=== PATIENT | female | born 1995 | race Caucasian/White ===

== ENCOUNTER → 2019-12-25 11:33 | Outpatient (BNVA) | payer OTHER, SELFPAY | PROVIDERS: PCP Internal Medicine; Visit Provider Internal Medicine Gastroenterology | DX: Z76.89 Persons encountering health services in other specified circumstances (principal) ==

== ENCOUNTER 2019-12-29 14:07 | Emergency (ER) | payer OTHER, MEDICAID, SELFPAY ==
[2019-12-29 14:16] VITALS: BP 126/74; PULSE 90; RESP 16; TEMP 37.4; O2SAT 100; BMI 25.0
--- NOTE | 2019-12-29 15:13 | PC.NURSE ---
patient a&ox3, eyes perrla, pt c/o continued blurry vision in rt eye only, c/o 3/10 headache, denies eye or head trauma, pt also c/o 3/10 oribal pain as well.
--- NOTE | 2019-12-29 15:20 | CT_ITS ---
EXAMINATION: CT HEAD WITHOUT CONTRAST CLINICAL INFORMATION: Episodes of vision loss in the right eye. COMPARISON: CT head from 06/14/2019. TECHNIQUE: Contiguous axial imaging was performed from the skull base to vertex without intravenous administration of contrast. This CT examination was performed using dose optimization techniques as appropriate, variously including the following: *Automated exposure control. *Adjustment of mA and/or kV according to patient size (this includes techniques or standardized protocols for targeted exams where dose is matched to indication/reason for exam; i.e. extremities or head). *Use of iterative reconstruction technique. DLP: 722 mGy-cm FINDINGS: There is no evidence of acute intracranial hemorrhage or edematous territorial infarction. There is no abnormal attenuation within the brain parenchyma. Camacho-white matter differentiation is preserved. The ventricles are normal in size and configuration. No evidence for obstructive hydrocephalus. The cerebellar tonsils are mildly low-lying, positioned 0.3 cm below the foramen magnum. The CSF space of the foramen magnum remains widely patent. No abnormal mass effect or midline shift. The suprasellar cistern remains patent. Normal appearance of the pituitary gland. No extra-axial fluid collections. No acute soft tissue or osseous abnormalities. The mastoid air cells and paranasal sinuses are clear. No demonstrated abnormalities of the orbits on the limited evaluation. CT/CT head/brain wo con IMPRESSION: 1. No evidence of acute intracranial hemorrhage or edematous territorial infarction. 2. Mild cerebellar tonsillar ectopia. Otherwise, no demonstrated abnormal mass effect.
--- NOTE | 2019-12-29 15:20 | ECG_ITS ---
Test Reason : HEADACHES Blood Pressure : / mmHG Vent. Rate : 067 BPM Atrial Rate : 067 BPM P-R Int : 160 ms QRS Dur : 102 ms QT Int : 430 ms P-R-T Axes : 068 061 039 degrees QTc Int : 454 ms Sinus rhythm with sinus arrhythmia with occasional Premature ventricular complexes Otherwise normal ECG When compared with ECG of 07-OCT-2019 22:53, Premature ventricular complexes are now Present Referred By: Jinny Sutton Electronically Signed By:ESTHELA CARCAMO MD
[2019-12-29 15:46] VITALS: BP 105/60; PULSE 66; RESP 18; TEMP 37; O2SAT 100
--- NOTE | 2019-12-29 15:54 | ED.GENADULT ---
HPI - General Adult General Chief complaint: Eye Problems Stated complaint: vision problem Time Seen by Provider: 12/29/19 15:05 Source: patient Mode of arrival: ambulatory Limitations: no limitations History of Present Illness HPI narrative: patient comes to emergency room complaining of multiple episodes complete visual loss this morning. Patient states this morning when she woke up, she could only see out of her left eye, the right eye was completely blocked, took couple of minutes for the vision to slowly reappear. Patient states her vision was blurry all morning long, in the afternoon she had a 2nd episode where she could not see anything at all from her left eye. Patient states this is the 2nd time it happens. At this time, her vision has returned, states it is blurry but she is able to see. Patient denies any trauma. No eye pain. patient states that she has noticed that occasionally she loses strength in her left hand when she is holding things Related Data Home Medications Medication Instructions Recorded Confirmed clonidine HCl 0.3 mg tablet 0.3 mg PO BEDTIME 12/25/19 12/25/19 loratadine 10 mg tablet 10 mg PO DAILY 12/25/19 12/25/19 sucralfate 1 gram tablet 1 g PO TID 12/25/19 12/25/19 venlafaxine 75 mg capsule,extended mg PO 12/25/19 12/25/19 release 24 hr Previous Rx's Medication Instructions Recorded esomeprazole magnesium 40 mg 40 mg PO DAILY 30 Days #30 ea 12/25/19 granules delayed release for susp linaclotide 145 mcg capsule 145 mcg PO QAM 30 Days #30 cap 12/25/19 Allergies Allergy/AdvReac Type Severity Reaction Status Date / Time erythromycin base Allergy Unknown UNKNOWN Unverified 11/16/19 17:56 [ERYTHROMYCIN BASE] escitalopram [From LEXAPRO] AdvReac Unknown NAUSEA Unverified 11/16/19 17:56 seasonal allergies Allergy Unknown Uncoded 03/17/19 00:00 Review of Systems Review of Systems: Constitutional : No Weight loss, No Fever, No Chills, No Night Sweats, No Fatigue, No Malaise ENT/Mouth : No Hearing loss, No Ear Pain, No Nasal Congestion, No Sinus Pain, No Hoarseness, No sore throat, No Rhinorrhea, No Swallowing Difficulty Eyes: No Eye Pain, No Swelling, No Redness, No Foreign Body, No Discharge, Complaining of 2 episodes of complete vision loss from the right eye, now complaining of blurry vision Cardiovascular : No Chest Pain, No SOB, No Dyspnea on Exertion, No Orthopnea, No Edema, No Palpitations Respiratory : No Cough, No Sputum, No Wheezing, No Smoke Exposure, No Dyspnea Gastrointestinal : No Nausea, No Vomiting, No Diarrhea, No Constipation, No abdominal Pain, No Hematochezia, No Melena Genitourinary : no irregular bleeding, No Dysuria, No Urinary Frequency, No Hematuria, No Urinary Incontinence, No Urgency, No Flank Pain, No Urinary Flow Changes, No Hesitancy Musculoskeletal : No joint pain, No Myalgias, No Joint Swelling, states she has occasional loss of strength in her left arm Skin : No Skin Lesions, No rash Neuro : No Weakness, No Numbness, No Paresthesias, No Loss of Consciousness, No Dizziness, No Headache Psych : No Anxiety/Panic, No Depression, No SI/HI/AH/VH, No Social Issues, Heme/Lymph: No Bruising, No Bleeding,No Lymphadenopathy Endocrine : No Polyuria, No Polydipsia, No Temperature Intolerance PMFSH Past Medical History Medical History ADHD Chronic constipation Dyspepsia GERD (gastroesophageal reflux disease) Insomnia Nausea and vomiting Ovarian cyst Seasonal allergies Sprain of left ankle Tobacco use Upper abdominal pain Surgical History Hx of endoscopy Hx of wisdom tooth extraction Family History Family History (Updated 12/29/19 @ 16:07 by Jinny Sutton MD) Father History of diabetes mellitus Mother No problems noted. Other Cluster headaches Multiple sclerosis Social History Social History (Updated 12/25/19 @ 11:45 by Giuliana Meredith MA) Alcohol intake: never Smoking Status: Current every day smoker Tobacco Type: E-Cigarette Use of substances other than those prescribed or required for medical reasons: Yes Substance Use Type: Marijuana Substance Use Frequency: Occasionally Advance Directives: No Advance Directives Information Provided: Yes Physical Exam Vital Signs: Vital Signs: Vital Signs Temp Pulse Resp BP Pulse Ox 12/29/19 15:46 98.6 F 66 18 105/60 100 12/29/19 14:16 99.3 F 90 16 126/74 100 Body Mass Index 25.0 Appearance: Alert. Oriented X3. No acute distress. Eyes: Pupils equal, round and reactive to light. bedside I ultrasound within normal limits, no retinal detachment, no floaters. ENT: Pharynx normal. Neck: Normal inspection. Neck supple. No lymph nodes noted. No crepitus CVS: Normal heart rate and rhythm. Pulses normal. Normal S1 and S2 Respiratory: No respiratory distress. Breath sounds normal. No Wheezing. No rales Abdomen: Soft and nontender. No rigidity. No distention. good BS x4 Skin: Skin warm and dry. Normal skin color. Normal skin turgor. Extremities: No lower extremity edema. No lower extremity edema. No Lacerations. No Rash Neuro: Oriented X 3. No motor deficit. No sensory deficit. Moving all extermities. No slurred speech. Course Course Course Narrative: Patient's head CT, CTA head/neck and labs are pending. Patient likely having first-time multiple sclerosis exacerbation versus TIA which is likely due to her age. Sign-out given to Dr. Gibson. Patient will likely need admission for further evaluation. Medical Decision Making Lab Data Result diagrams: 12/29/19 15:42 12/29/19 15:42 Labs: Lab Results 12/29/19 12/29/19 12/29/19 Range/Units 15:42 15:42 15:42 WBC 9.5 (4.8-10.8) X10*3/uL RBC 4.54 (4.20-5.50) X10*6/uL Hgb 13.4 (12.0-16.0) g/dl Hct 41.0 (37-47) % MCV 90.3 (80-98) fL MCH 29.5 (27.0-33.0) pg MCHC 32.7 (31.0-35.0) g/dl RDW 12.1 (11.0-16.0) % Plt Count 461 H (160-400) X10*3/uL MPV 9.7 (9.4-12.3) fL Immature Gran % (Auto) 0.3 (0.0-0.4) % Neut % (Auto) 63.4 (45-73) % Lymph % (Auto) 27.3 (20-40) % Banner % (Auto) 6.3 (2-11) % Eos % (Auto) 1.8 (0-4) % Baso % (Auto) 0.9 (0-2) % Lymph # (Auto) 2.6 (1.2-4.9) X10*3/uL Banner # (Auto) 0.6 (0.1-1.2) X10*3/uL Eos # (Auto) 0.2 (0.0-0.4) X10*3/uL Baso # (Auto) 0.1 (0.0-0.2) X10*3/uL Abs Immat Gran (auto) 0.03 (0.00-0.03) X10*3/uL Absolute Neuts (auto) 6.0 (2.0-8.3) X10*3/uL Absolute Nucleated RBC 0.000 (0.0-0.012) X10*3/uL Nucleated RBC % (auto) 0.0 (0.0-0.2) /100WBC Sodium 142 (135-145) mmol/L Potassium 3.9 (3.3-5.1) mmol/l Chloride 105 (96-108) mmol/L Carbon Dioxide 28 (22-29) mmol/L Anion Gap 13 (12-20) BUN 10 (9-16) mg/dL Creatinine 0.76 (0.5-1.4) mg/dL Estim Creat Clear Calc 102.7 Estimated GFR > 60 Random Glucose 84 (60-115) mg/dL Calcium 9.3 (8.4-10.2) mg/dL Total Bilirubin 0.3 (0.0-1.0) mg/dL Direct Bilirubin < 0.2 (0.0-0.5) mg/dL AST 17 (5-31) U/L ALT 22 (0-31) U/L Alkaline Phosphatase 60 (39-117) U/L Total Protein 7.4 (6.5-8.0) g/dL Albumin 4.6 (3.5-5.0) g/dL Urine Color STRAW Urine Appearance CLEAR Urine pH 7.0 (5.0-8.0) Ur Specific Ruth 1.010 (1.005-1.025) Urine Protein NEG (NEG-TRACE) MG/DL Urine Glucose (UA) NEG (NEG) MG/DL Urine Ketones NEG (NEG) MG/DL Urine Blood 2+ H (NEG) Urine Nitrite NEG (NEG) Ur Leukocyte Esterase NEG (NEG) Urine Opiates Screen (Not Detect) Ur Barbiturates Screen (Not Detect) Ur Phencyclidine Scrn (Not Detect) Ur Amphetamines Screen (Not Detect) U Benzodiazepines Scrn (Not Detect) Urine Cocaine Screen (Not Detect) U Marijuana (THC) Screen (Not Detect) 12/29/19 Range/Units 15:42 WBC (4.8-10.8) X10*3/uL RBC (4.20-5.50) X10*6/uL Hgb (12.0-16.0) g/dl Hct (37-47) % MCV (80-98) fL MCH (27.0-33.0) pg MCHC (31.0-35.0) g/dl RDW (11.0-16.0) % Plt Count (160-400) X10*3/uL MPV (9.4-12.3) fL Immature Gran % (Auto) (0.0-0.4) % Neut % (Auto) (45-73) % Lymph % (Auto) (20-40) % Banner % (Auto) (2-11) % Eos % (Auto) (0-4) % Baso % (Auto) (0-2) % Lymph # (Auto) (1.2-4.9) X10*3/uL Banner # (Auto) (0.1-1.2) X10*3/uL Eos # (Auto) (0.0-0.4) X10*3/uL Baso # (Auto) (0.0-0.2) X10*3/uL Abs Immat Gran (auto) (0.00-0.03) X10*3/uL Absolute Neuts (auto) (2.0-8.3) X10*3/uL Absolute Nucleated RBC (0.0-0.012) X10*3/uL Nucleated RBC % (auto) (0.0-0.2) /100WBC Sodium (135-145) mmol/L Potassium (3.3-5.1) mmol/l Chloride (96-108) mmol/L Carbon Dioxide (22-29) mmol/L Anion Gap (12-20) BUN (9-16) mg/dL Creatinine (0.5-1.4) mg/dL Estim Creat Clear Calc Estimated GFR Random Glucose (60-115) mg/dL Calcium (8.4-10.2) mg/dL Total Bilirubin (0.0-1.0) mg/dL Direct Bilirubin (0.0-0.5) mg/dL AST (5-31) U/L ALT (0-31) U/L Alkaline Phosphatase (39-117) U/L Total Protein (6.5-8.0) g/dL Albumin (3.5-5.0) g/dL Urine Color Urine Appearance Urine pH (5.0-8.0) Ur Specific Ruth (1.005-1.025) Urine Protein (NEG-TRACE) MG/DL Urine Glucose (UA) (NEG) MG/DL Urine Ketones (NEG) MG/DL Urine Blood (NEG) Urine Nitrite (NEG) Ur Leukocyte Esterase (NEG) Urine Opiates Screen Not Detected (Not Detect) Ur Barbiturates Screen Not Detected (Not Detect) Ur Phencyclidine Scrn Not Detected (Not Detect) Ur Amphetamines Screen Not Detected (Not Detect) U Benzodiazepines Scrn Not Detected (Not Detect) Urine Cocaine Screen Not Detected (Not Detect) U Marijuana (THC) Screen POSITIVE H (Not Detect) ECG Data Attestation: I personally reviewed and interpreted this ECG as follows: ( Sinus rhythm, heart rate 67, QTC 454, no ST changes, no T-wave inversions, occasional PVC) Discharge Plan Discharge Clinical Impression: Amaurosis fugax of right eye Prescriptions: No Action clonidine HCl 0.3 mg tablet 0.3 mg PO BEDTIME RF: 0 sucralfate 1 gram tablet 1 g PO TID RF: 0 loratadine 10 mg tablet 10 mg PO DAILY RF: 0 venlafaxine 75 mg capsule,extended release 24hr PO RF: 0 Linzess 145 mcg capsule 145 mcg PO QAM 30 Days Qty: 30 RF: 2 esomeprazole magnesium [Nexium Packet] [address] for susp in packet 40 mg PO DAILY 30 Days Qty: 30 RF: 3
[2019-12-29 15:56] LABS: MANUAL DIFF FLAG NO
[2019-12-29 16:01] LABS: Basophils Absolute Auto 0.1 X10*3/uL (0.0-0.2); Basophils Percent Auto 0.9 % (0-2); Eosinophils Absolute Auto 0.2 X10*3/uL (0.0-0.4); Eosinophils Percent Auto 1.8 % (0-4); Hemoglobin 13.4 g/dl (12.0-16.0); Imm Gran Abs Auto 0.03 X10*3/uL (0.00-0.03); Imm Gran Pct Auto 0.3 % (0.0-0.4); Lymphocytes Absolute Auto 2.6 X10*3/uL (1.2-4.9); Lymphocytes Percent Auto 27.3 % (20-40); Mean Corpuscular HGB Conc 32.7 g/dl (31.0-35.0); Mean Corpuscular Hemoglobin 29.5 pg (27.0-33.0); Mean Corpuscular Volume 90.3 fL (80-98); Mean Platelet Volume 9.7 fL (9.4-12.3); Monocytes Absolute Auto 0.6 X10*3/uL (0.1-1.2); Monocytes Percent Auto 6.3 % (2-11); Neutrophils Percent Auto 63.4 % (45-73); Platelet Count 461 X10*3/uL (160-400); Red Blood Count 4.54 X10*6/uL (4.20-5.50); Red Cell Distribution Width 12.1 % (11.0-16.0); White Blood Count 9.5 X10*3/uL (4.8-10.8)
[2019-12-29 16:04] LABS: Glucose Urine UA NEG (NEG); Leukocyte Esterase Urine NEG (NEG); Nitrite Urine NEG (NEG); Urine Blood 2+ (NEG); Urine Ketones NEG (NEG); Urine Protein NEG (NEG-TRACE)
[2019-12-29 16:09] LABS: Appearance Urine CLEAR; Color Urine STRAW
--- NOTE | 2019-12-29 16:18 | CT_ITS ---
EXAMINATION: CT ANGIOGRAM NECK WITH CONTRAST CT ANGIOGRAM BRAIN WITH CONTRAST CLINICAL INFORMATION: Intermittent right-sided vision loss. COMPARISON: Head CT 12/29/2019. TECHNIQUE: Test bolus sequences followed by intravenous administration 70 mL of Omnipaque 350. Helical imaging was performed in the axial plane from the thoracic inlet to the skull vertex. Delayed postcontrast imaging of the head was also performed. The data was processed at the radiological technologist workstation for generation of MIP sequences. Angled MIPs and volume rendered reformatted images were also generated at an offline 3D workstation. Stenoses are assessed in accordance with NASCET criteria unless otherwise indicated. This CT examination was performed using dose optimization techniques as appropriate, variously including the following: *Automated exposure control *Adjustment of mA and/or kV according to patient size (this includes techniques or standardized protocols for targeted exams where dose is matched to indication/reason for exam; i.e. extremities or head) *Use of iterative reconstruction technique DLP: 1505 mGy-cm FINDINGS: Head CT: On the postcontrast images, there is no intracranial hemorrhage, extra-axial collection, mass effect, or territorial infarction. No enhancing lesion is seen. The ventricles are normal in size without hydrocephalus. The major dural venous sinuses demonstrate normal opacification. The extracranial structures are unremarkable. Neck CTA: The aortic arch and great vessels are patent. The bilateral common carotid arteries are patent. No stenosis is seen at either carotid bifurcation. The distal cervical left ICA is tortuous and forms a hairpin turn just below the skull base but no significant stenosis is seen. There is mild fusiform dilatation of the left ICA just below the skull base. The bilateral vertebral arteries are widely patent and are codominant. Head CTA: No proximal vessel occlusion is seen. The anterior and posterior circulations are patent. No intracranial arterial stenosis or aneurysm is seen. Non-vascular findings: Reactive-appearing cervical lymph nodes are seen within the neck. The upper lungs are clear. No significant osseous findings are noted. CT/CT angio head neck IMPRESSION: No stenosis, occlusion, or aneurysm seen within the major neck arteries or in the intracranial arterial circulation.
[2019-12-29 16:20] LABS: Alanine Aminotransferase 22 U/L (0-31); Albumin Level 4.6 g/dL (3.5-5.0); Alkaline Phosphatase 60 U/L (39-117); Amphetamine Screen Urine Not Detected (Not Detect); Anion Gap 13 (12-20); Aspartate Amino Transferase 17 U/L (5-31); Barbiturates, Urine Not Detected (Not Detect); Benzodiazepines Screen Urine Not Detected (Not Detect); Bilirubin Direct < 0.2 mg/dL (0.0-0.5); Bilirubin Total 0.3 mg/dL (0.0-1.0); Blood Urea Nitrogen 10 mg/dL (9-16); Calcium 9.3 mg/dL (8.4-10.2); Cannabinoid Screen Urine POSITIVE (Not Detect); Carbon Dioxide 28 mmol/L (22-29); Chloride 105 mmol/L (96-108); Cocaine Screen Urine Not Detected (Not Detect); Creatinine Clr Calc Pharmacy 102.7; Estimated Glomerular Filt Rate > 60; Glucose Random 84 mg/dL (60-115); Opiate Screen Urine Not Detected (Not Detect); Phencyclidine Screen Urine Not Detected (Not Detect); Potassium 3.9 mmol/l (3.3-5.1); Sodium 142 mmol/L (135-145); Total Protein 7.4 g/dL (6.5-8.0)
[2019-12-29 16:48] LABS: Bacteria Urine TRACE /LPF; RBC Urine 0-2 /HPF (0); Squamous Epithelial Cell Urine 3+ /LPF; WBC Urine 0 /HPF (0-4)
--- NOTE | 2019-12-29 16:49 | PC.NURSE ---
visual acuity performed
[2019-12-29 18:00] VITALS: BP 108/69; PULSE 71; RESP 18; TEMP 36.9; O2SAT 100
[2019-12-29] MEDS: iohexoL 350 MG/ML 100 ML INFUS..BTL IV (18:13)
--- NOTE | 2019-12-29 19:25 | PC.NURSE ---
patient requesting food, provider ok'd pt given sandwich as well as a drink, patient awaiting results of ct, vitals stable, will continue to monitor.
== END 2019-12-29 19:51 | disposition home or self-care (01) ==
PROVIDERS: Emergency Provider Emergency Medicine; PCP Internal Medicine
DX: G45.3 Amaurosis fugax (principal); H53.8 Other visual disturbances; F12.90 Cannabis use, unspecified, uncomplicated; Z79.899 Other long term (current) drug therapy; F17.200 Nicotine dependence, unspecified, uncomplicated; Z71.6 Tobacco abuse counseling
CPT/HCPCS: 36415; 70450; 70496; 70498; 80048; 80076; 80307; 81001; 81003; 85025; 93005; 99284; Q9967

== ENCOUNTER 2020-01-31 15:28 | Outpatient (REF) | payer OTHER, MEDICAID, SELFPAY ==
--- NOTE | 2020-01-31 | US_ITS ---
EXAMINATION: ULTRASOUND PELVIS COMPLETE. CLINICAL INFORMATION: Upper abdominal pain. COMPARISON: None TECHNIQUE: Transabdominal and transvaginal ultrasound the pelvis is performed. FINDINGS: The uterus is anteverted and anteflexed measuring 7.4 cm in length, 2.9 cm in AP and 3.9 cm in transverse dimension. There is IUD within endometrial canal in correct position. Right ovary measures 2.9 x 1.8 x 2.3 cm and volume 6.3 mL. It appears unremarkable. Left ovary measures 2.5 x 2.1 x 2.3 cm and volume 6.4 mL. There is no free fluid in the cul-de-sac. US/US transvaginal IMPRESSION: 1. Unremarkable uterus and ovaries. 2. IUD is in correct position within the endometrial canal.
--- NOTE | 2020-01-31 15:32 | US_ITS ---
EXAMINATION: ULTRASOUND PELVIS COMPLETE. CLINICAL INFORMATION: Upper abdominal pain. COMPARISON: None TECHNIQUE: Transabdominal and transvaginal ultrasound the pelvis is performed. FINDINGS: The uterus is anteverted and anteflexed measuring 7.4 cm in length, 2.9 cm in AP and 3.9 cm in transverse dimension. There is IUD within endometrial canal in correct position. Right ovary measures 2.9 x 1.8 x 2.3 cm and volume 6.3 mL. It appears unremarkable. Left ovary measures 2.5 x 2.1 x 2.3 cm and volume 6.4 mL. There is no free fluid in the cul-de-sac. US/US pelvic complete IMPRESSION: 1. Unremarkable uterus and ovaries. 2. IUD is in correct position within the endometrial canal.
== END 2020-01-31 15:29 | disposition home or self-care (01) ==
LOC: HO.HMGCX 15:28
PROVIDERS: PCP Internal Medicine; Visit Provider Internal Medicine Gastroenterology
DX: R10.10 Upper abdominal pain, unspecified (principal); N83.299 Other ovarian cyst, unspecified side
CPT/HCPCS: 76830; 76856

== ENCOUNTER 2020-02-01 10:06 | Outpatient (REF) | payer OTHER, MEDICAID, SELFPAY ==
--- NOTE | 2020-02-02 16:57 | XR_ITS ---
EXAMINATION: XR ABDOMEN COMPLETE CLINICAL INDICATION: Constipation. COMPARISON: CT scan of 11/19/19. TECHNIQUE: 2 views of the abdomen. FINDINGS: There is a normal nonobstructive bowel gas pattern. Stool volume is relatively small. There is no free air. No abnormal calcifications are demonstrated. The lung bases are clear. No bony abnormality is evident. An IUD is present in expected position. XR/XR abdomen min 2V IMPRESSION: Unremarkable examination. Small stool burden.
== END 2020-02-01 10:07 | disposition home or self-care (01) ==
LOC: HO.XRAY 10:06
PROVIDERS: PCP Internal Medicine; Referring Provider Internal Medicine; Visit Provider Internal Medicine Gastroenterology
DX: K59.09 Other constipation (principal); K21.9 Gastro-esophageal reflux disease without esophagitis; R10.13 Epigastric pain; R10.10 Upper abdominal pain, unspecified; R11.2 Nausea with vomiting, unspecified
CPT/HCPCS: 74019

== ENCOUNTER 2020-02-16 09:23 | Outpatient (REF) | payer OTHER, SELFPAY ==
--- NOTE | 2020-02-16 09:32 | XR_ITS ---
EXAMINATION: XR SHOULDER, LEFT CLINICAL INFORMATION: Injury COMPARISON: None TECHNIQUE: 3 views of the left shoulder. FINDINGS: The bones and soft tissues are normal. No fracture. Glenohumeral and acromioclavicular alignment is anatomic with normal joint space. No abnormal soft tissue calcifications. XR/XR shoulder LT min 2V IMPRESSION: Normal left shoulder.
== END 2020-02-16 09:24 | disposition home or self-care (01) ==
LOC: HO.HMGCX 09:23
PROVIDERS: PCP Internal Medicine; Visit Provider Internal Medicine
DX: S49.90XA Unspecified injury of shoulder and upper arm, unspecified arm, initial encounter (principal)
CPT/HCPCS: 73030

== ENCOUNTER 2020-02-19 09:39 | Outpatient (REF) | payer OTHER, SELFPAY | END 2020-02-19 09:40 | disposition home or self-care (01) | LOC: HO.LAB 09:39 | PROVIDERS: Visit Provider Hospitalist | DX: Z20.828 Contact with and (suspected) exposure to other viral communicable diseases (principal) | CPT/HCPCS: U0003 ==

== ENCOUNTER 2020-03-13 07:57 | Emergency (ER) | payer OTHER, MEDICAID, SELFPAY ==
[2020-03-13 08:04] VITALS: BP 123/75; PULSE 89; RESP 16; TEMP 37.2; O2SAT 99; BMI 24.1
--- NOTE | 2020-03-13 08:11 | ED_ITS ---
HPI - General Adult General Chief complaint: General Medical <Damaso Juarez NP - Last Filed: 03/13/20 15:21> Stated complaint: covid symptoms <Damaso Juarez NP - Last Filed: 03/13/20 15:21> Time Seen by Provider: 03/13/20 08:11 <Damaso Juarez NP - Last Filed: 03/13/20 15:21> Source: patient <Damaso Juarez NP - Last Filed: 03/13/20 15:21> Mode of arrival: ambulatory <Damaso Juarez NP - Last Filed: 03/13/20 15:21> Limitations: no limitations <Damaso Juarez NP - Last Filed: 03/13/20 15:21> History of Present Illness HPI narrative: 24-year-old female with below past medical history presenting complaint of nausea vomiting and mild diarrhea going on for the past several days. She reports upper abdominal pain with nausea and vomiting. She does have history of cholecystectomy. Denies any recent travel, sick contacts. States has had chills with this. States is altogether not too uncommon for her to have epigastric pain as she suffers from gastritis and GERD. <Damaso Juarez NP - Last Filed: 03/13/20 15:21> Onset (ago): day(s) <Damaso Juarez NP - Last Filed: 03/13/20 15:21> Severity scale (1-10): 5 <Damaso Juarez NP - Last Filed: 03/13/20 15:21> Exacerbating factors: none <Damaso Juarez NP - Last Filed: 03/13/20 15:21> Treatments prior to arrival: none <Damaso Juarez NP - Last Filed: 03/13/20 15:21> Related Data Home medications: Home Medications Medication Instructions Recorded Confirmed loratadine 10 mg tablet 10 mg PO DAILY 12/25/19 02/27/20 sucralfate 1 gram tablet 1 g PO TID 12/25/19 02/27/20 ondansetron 4 mg disintegrating 4 mg PO 01/03/20 02/27/20 tablet omeprazole magnesium 20 mg 20 mg PO BID 02/16/20 02/27/20 tablet,delayed release Previous Rx's Medication Instructions Recorded linaclotide 145 mcg capsule 145 mcg PO QAM 30 Days #30 cap 12/25/19 bisacodyl 10 mg/30 mL enema 10 mg [place] DAILY PRN 3 Days #40 ml 02/01/20 esomeprazole magnesium 40 mg 40 mg PO DAILY 30 Days #30 ea 02/01/20 granules delayed release for susp polyethylene glycol 3350 17 17 g PO BID 30 Days #1020 g 02/01/20 gram/dose oral powder esomeprazole magnesium 40 mg 40 mg PO DAILY 30 Days #30 cap 02/08/20 capsule,delayed release amoxicillin 875 mg-potassium 1 tab PO BID #20 tab 02/19/20 clavulanate 125 mg tablet azithromycin 250 mg tablet 250 mg PO ONCE 5 Days #6 tab 02/27/20 trazodone 50 mg tablet 50 mg PO BEDTIME PRN 90 Days #90 03/10/20 tab ondansetron HCl [Zofran] 4 mg PO Q8H PRN #10 tab 03/13/20 <Damaso Juarez NP - Last Filed: 03/13/20 15:21> Allergies/adverse reactions: Allergies Allergy/AdvReac Type Severity Reaction Status Date / Time erythromycin base Allergy Unknown UNKNOWN Verified 02/27/20 09:10 [ERYTHROMYCIN BASE] escitalopram [From LEXAPRO] AdvReac Unknown NAUSEA Verified 02/19/20 09:23 seasonal allergies Allergy Unknown Unknown Uncoded 02/19/20 09:23 <Damaso Juarez NP - Last Filed: 03/13/20 15:21> Review of Systems Review of Systems: Constitutional: No Weight loss, No Fever, + Chills, No Night Sweats, No Fatigue, No Malaise ENT/Mouth: No Hearing loss, No Ear Pain, No Nasal Congestion, No Sinus Pain, No Hoarseness, No sore throat, No Rhinorrhea, No Swallowing Difficulty Eyes: No Eye Pain, No Swelling, No Redness, No Foreign Body, No Discharge, No Vision Changes Cardiovascular: No Chest Pain, No SOB, No Dyspnea on Exertion, No Orthopnea, No Edema, No Palpitations Respiratory: No Cough, No Sputum, No Wheezing, No Smoke Exposure, No Dyspnea Gastrointestinal: As noted in HPI, No Hematochezia, No Melena Genitourinary: no irregular bleeding, No Dysuria, No Urinary Frequency, No Hematuria, No Urinary Incontinence, No Urgency, No Flank Pain, No Urinary Flow Changes, No Hesitancy Musculoskeletal: No joint pain, No Myalgias, No Joint Swelling Skin: No Skin Lesions, No rash Neuro: No Weakness, No Numbness, No Paresthesias, No Loss of Consciousness, No Dizziness, No Headache Psych: No Social Issues Heme/Lymph: No Bruising, No Bleeding,No Lymphadenopathy Endocrine: No Polyuria, No Polydipsia, No Temperature Intolerance <Damaso Juarez NP - Last Filed: 03/13/20 15:21> Yes all other systems are reviewed and are negative <Damaso Juarez NP - Last Filed: 03/13/20 15:21> [facility] Past Medical History Medical History: Medical History ADHD Chronic constipation Difficulty sleeping Dyspepsia Environmental allergies GERD (gastroesophageal reflux disease) Insomnia Itchy eyes Nausea and vomiting Ovarian cyst Seasonal allergies Shoulder injury Shoulder pain, left Sprain of left ankle Tobacco use Upper abdominal pain <Damaso Juarez NP - Last Filed: 03/13/20 15:21> Surgical History: Surgical History Hx of endoscopy Hx of wisdom tooth extraction <Damaso Juarez NP - Last Filed: 03/13/20 15:21> Family History Family History: Family History Father History of diabetes mellitus Mother No problems noted. Other Cluster headaches Multiple sclerosis <Damaso Juarez NP - Last Filed: 03/13/20 15:21> Social History Social History: Social History Alcohol intake: never Smoking Status: Never smoker Tobacco Type: E-Cigarette Use of substances other than those prescribed or required for medical reasons: No Advance Directives: No Advance Directives Information Provided: No <Damaso Juarez NP - Last Filed: 03/13/20 15:21> Physical Exam Vital Signs: Vital Signs: Last Vital Signs Temp 98.1 F 03/13/20 10:53 Pulse 71 03/13/20 10:53 Resp 16 03/13/20 10:53 BP 110/68 03/13/20 10:53 Pulse Ox 100 03/13/20 10:53 Body Mass Index 24.1 Reviewed <Damaso Juarez NP - Last Filed: 03/13/20 15:21> Vital Signs: Last Vital Signs Temp 98.1 F 03/13/20 10:53 Pulse 71 03/13/20 10:53 Resp 16 03/13/20 10:53 BP 110/68 03/13/20 10:53 Pulse Ox 100 03/13/20 10:53 Body Mass Index 24.1 <Jacob Mullen MD - Last Filed: 03/21/20 23:38> Const: General: cooperative and healthy appearing; No acute distress or intoxicated appearing <Damasorashel Juarez NP - Last Filed: 03/13/20 15:21> Nutritional Appearance: average body habitus <Damaso Juarez NP - Last Filed: 03/13/20 15:21> Orientation/consciousness: patient oriented x3 <Damasorashel Juarez NP - Last Filed: 03/13/20 15:21> HENMT: Head: Yes normal to inspection <Damaso Juarez NP - Last Filed: 03/13/20 15:21> Ears: hearing grossly normal bilaterally <Damaso Juarez NP - Last Filed: 03/13/20 15:21> Eyes: General: appearance normal, both eyes and all related structures <Damaso Juarez NP - Last Filed: 03/13/20 15:21> Visual Alfaro: normal visual alfaro by confrontation <Damasorashel Juarez NP - Last Filed: 03/13/20 15:21> Neck: Neck: Yes normal visual inspection, No positive Brudzinski's sign, No positive Kernig's sign and No tender <Damaso Juarez NP - Last Filed: 03/13/20 15:21> Thyroid: Thyroid normal <Damaso SASKIA Juarez - Last Filed: 03/13/20 15:21> Chest: Chest palpation & inspection: normal inspection of the chest <Damaso Juarez NP - Last Filed: 03/13/20 15:21> Resp: Effort & Inspection: normal respiratory effort <Damaso SASKIA Juarez - Last Filed: 03/13/20 15:21> Auscultation: clear to auscultation bilaterally <Damaso Juarez NP - Last Filed: 03/13/20 15:21> Cardio: Jugular venous distension: no JVD <Damaso JuarezSASKIA - Last Filed: 03/13/20 15:21> Rate: regular rate <Damaso JuarezSASKIA - Last Filed: 03/13/20 15:21> Rhythm: regular rhythm <Damaso LarrySASKIA - Last Filed: 03/13/20 15:21> Heart sounds: S1 normal heart sound present and S2 normal heart sound present <Damaso JuarezSASKIA - Last Filed: 03/13/20 15:21> GI: Inspection: Yes normal to inspection <Damaso LarrySASKIA - Last Filed: 03/13/20 15:21> Palpation (GI): Soft to palpation, not firm, nontender, no guarding, not rigid and hepatosplenomegaly present <Damaso JuarezSASKIA - Last Filed: 03/13/20 15:21> Percussion: Yes normal to percussion <Damasorashel JuarezSASKIA - Last Filed: 03/13/20 15:21> Auscultation: normal bowel sounds <Damaso JuarezSASKIA - Last Filed: 03/13/20 15:21> : General: Yes no CVA tenderness <Damaso JuarezSASKIA - Last Filed: 03/13/20 15:21> Back/Spine/Pelvis: Back: no CVA tenderness <Damaso JuarezSASKIA - Last Filed: 03/13/20 15:21> Skin: General skin exam: no rashes or lesions noted <Damaso CharlesSASKIA alonso - Last Filed: 03/13/20 15:21> Neuro: General: patient oriented x3 <Damaso CharlesSASKIA alonso - Last Filed: 03/13/20 15:21> Extrem: General: Yes normal to inspection <Damaso JuarezSASKIA alonso - Last Filed: 03/13/20 15:21> Course Course Course Narrative: I have reviewed the chart <Jacob Mullen MD - Last Filed: 03/21/20 23:38> Medical Decision Making MDM Narrative Medical decision making narrative: Interview 24-year-old female with above history including history of ADHD, chronic GI issues with constipation and GERD, with prior endoscopy followed by Dr. Pablo here GI was had nausea vomiting and some episodes of diarrhea for past couple days with epigastric burning like discomfort with the vomiting. Overall on exam well nontoxic appearing. Patient has been stable appearing with serial abdominal exams revealing no acute abdomen. Workup essentially negative. Cbc without leukocytosis electrolytes without significant derangement. COVID negative. UA negative, no . States since her symptoms have been ongoing for awhile with GI soft and has had multiple nonspecific GI symptoms. She does request to have her TSH should take it was last checked last year within normal limits will go ahead and add this on as well as mono test. She is otherwise well nontoxic appearing. Will discharge with supportive care and follow-up with GI. <Damaso Juarez NP - Last Filed: 03/13/20 15:21> Differential Diagnosis Differential Diagnosis: Gastroenteritis, gastritis, diverticular disease, appendicitis, c holecystit <Damaso Juarez NP - Last Filed: 03/13/20 15:21> Lab Data Result diagrams: : 03/13/20 09:06 03/13/20 09:06 <Damaso Juarez NP - Last Filed: 03/13/20 15:21> Labs: Lab Results 03/13/20 03/13/20 03/13/20 Range/Units 09:06 09:06 09:06 WBC 6.6 (4.8-10.8) X10*3/uL RBC 4.54 (4.20-5.50) X10*6/uL Hgb 13.4 (12.0-16.0) g/dl Hct 39.9 (37-47) % MCV 87.9 (80-98) fL MCH 29.5 (27.0-33.0) pg MCHC 33.6 (31.0-35.0) g/dl RDW 11.7 (11.0-16.0) % Plt Count 431 H (160-400) X10*3/uL MPV 9.7 (9.4-12.3) fL Immature Gran % (Auto) 0.2 (0.0-0.4) % Neut % (Auto) 59.8 (45-73) % Lymph % (Auto) 31.4 (20-40) % [place] % (Auto) 5.9 (2-11) % Eos % (Auto) 1.8 (0-4) % Baso % (Auto) 0.9 (0-2) % Lymph # (Auto) 2.1 (1.2-4.9) X10*3/uL [place] # (Auto) 0.4 (0.1-1.2) X10*3/uL Eos # (Auto) 0.1 (0.0-0.4) X10*3/uL Baso # (Auto) 0.1 (0.0-0.2) X10*3/uL Abs Immat Gran (auto) 0.01 (0.00-0.03) X10*3/uL Absolute Neuts (auto) 3.9 (2.0-8.3) X10*3/uL Absolute Nucleated RBC 0.000 (0.0-0.012) X10*3/uL Nucleated RBC % (auto) 0.0 (0.0-0.2) /100WBC Sodium 140 (135-145) mmol/L Potassium 4.3 (3.3-5.1) mmol/l Chloride 104 (96-108) mmol/L Carbon Dioxide 28 (22-29) mmol/L Anion Gap 12 (12-20) BUN 13 (9-16) mg/dL Creatinine 0.78 (0.5-1.4) mg/dL Estim Creat Clear Calc 100.0 Estimated GFR > 60 Random Glucose 91 (60-115) mg/dL Calcium 9.6 (8.4-10.2) mg/dL Total Bilirubin 0.4 (0.0-1.0) mg/dL AST 14 (5-31) U/L ALT 19 (0-31) U/L Alkaline Phosphatase 46 D (39-117) U/L Total Protein 7.0 (6.5-8.0) g/dL Albumin 4.5 (3.5-5.0) g/dL TSH 0.47 (0.32-4.0) uIU/mL Urine Color Urine Appearance Urine pH (5.0-8.0) Ur Specific [place] (1.005-1.025) Urine Protein (NEG-TRACE) MG/DL Urine Glucose (UA) (NEG) MG/DL Urine Ketones (NEG) MG/DL Urine Blood (NEG) Urine Nitrite (NEG) Ur Leukocyte Esterase (NEG) Urine RBC (0) /HPF Urine WBC (0-4) /HPF Ur Squamous Epith Cells /LPF Urine Bacteria /LPF Urine Mucus /LPF Urine Test (NEGATIVE) COVID-19 ([place]) Negative (Negative) COVID-19 Clin Com See Note Monoscreen (Negative) 03/13/20 03/13/20 Range/Units 09:06 09:06 WBC (4.8-10.8) X10*3/uL RBC (4.20-5.50) X10*6/uL Hgb (12.0-16.0) g/dl Hct (37-47) % MCV (80-98) fL MCH (27.0-33.0) pg MCHC (31.0-35.0) g/dl RDW (11.0-16.0) % Plt Count (160-400) X10*3/uL MPV (9.4-12.3) fL Immature Gran % (Auto) (0.0-0.4) % Neut % (Auto) (45-73) % Lymph % (Auto) (20-40) % [place] % (Auto) (2-11) % Eos % (Auto) (0-4) % Baso % (Auto) (0-2) % Lymph # (Auto) (1.2-4.9) X10*3/uL [place] # (Auto) (0.1-1.2) X10*3/uL Eos # (Auto) (0.0-0.4) X10*3/uL Baso # (Auto) (0.0-0.2) X10*3/uL Abs Immat Gran (auto) (0.00-0.03) X10*3/uL Absolute Neuts (auto) (2.0-8.3) X10*3/uL Absolute Nucleated RBC (0.0-0.012) X10*3/uL Nucleated RBC % (auto) (0.0-0.2) /100WBC Sodium (135-145) mmol/L Potassium (3.3-5.1) mmol/l Chloride (96-108) mmol/L Carbon Dioxide (22-29) mmol/L Anion Gap (12-20) BUN (9-16) mg/dL Creatinine (0.5-1.4) mg/dL Estim Creat Clear Calc Estimated GFR Random Glucose (60-115) mg/dL Calcium (8.4-10.2) mg/dL Total Bilirubin (0.0-1.0) mg/dL AST (5-31) U/L ALT (0-31) U/L Alkaline Phosphatase (39-117) U/L Total Protein (6.5-8.0) g/dL Albumin (3.5-5.0) g/dL TSH (0.32-4.0) uIU/mL Urine Color YELLOW Urine Appearance CLEAR Urine pH 6.5 (5.0-8.0) Ur Specific [place] 1.020 (1.005-1.025) Urine Protein NEG (NEG-TRACE) MG/DL Urine Glucose (UA) NEG (NEG) MG/DL Urine Ketones NEG (NEG) MG/DL Urine Blood TRACE (NEG) Urine Nitrite NEG (NEG) Ur Leukocyte Esterase NEG (NEG) Urine RBC 0-2 (0) /HPF Urine WBC 0-2 (0-4) /HPF Ur Squamous Epith Cells 2+ /LPF Urine Bacteria 1+ /LPF Urine Mucus 1+ /LPF Urine Test NEGATIVE (NEGATIVE) COVID-19 ([place]) (Negative) COVID-19 Clin Com Monoscreen Negative (Negative) <Damaso Juarez NP - Last Filed: 03/13/20 15:21> Lab Results 03/13/20 03/13/20 03/13/20 Range/Units 09:06 09:06 09:06 WBC 6.6 (4.8-10.8) X10*3/uL RBC 4.54 (4.20-5.50) X10*6/uL Hgb 13.4 (12.0-16.0) g/dl Hct 39.9 (37-47) % MCV 87.9 (80-98) fL MCH 29.5 (27.0-33.0) pg MCHC 33.6 (31.0-35.0) g/dl RDW 11.7 (11.0-16.0) % Plt Count 431 H (160-400) X10*3/uL MPV 9.7 (9.4-12.3) fL Immature Gran % (Auto) 0.2 (0.0-0.4) % Neut % (Auto) 59.8 (45-73) % Lymph % (Auto) 31.4 (20-40) % [place] % (Auto) 5.9 (2-11) % Eos % (Auto) 1.8 (0-4) % Baso % (Auto) 0.9 (0-2) % Lymph # (Auto) 2.1 (1.2-4.9) X10*3/uL [place] # (Auto) 0.4 (0.1-1.2) X10*3/uL Eos # (Auto) 0.1 (0.0-0.4) X10*3/uL Baso # (Auto) 0.1 (0.0-0.2) X10*3/uL Abs Immat Gran (auto) 0.01 (0.00-0.03) X10*3/uL Absolute Neuts (auto) 3.9 (2.0-8.3) X10*3/uL Absolute Nucleated RBC 0.000 (0.0-0.012) X10*3/uL Nucleated RBC % (auto) 0.0 (0.0-0.2) /100WBC Sodium 140 (135-145) mmol/L Potassium 4.3 (3.3-5.1) mmol/l Chloride 104 (96-108) mmol/L Carbon Dioxide 28 (22-29) mmol/L Anion Gap 12 (12-20) BUN 13 (9-16) mg/dL Creatinine 0.78 (0.5-1.4) mg/dL Estim Creat Clear Calc 100.0 Estimated GFR > 60 Random Glucose 91 (60-115) mg/dL Calcium 9.6 (8.4-10.2) mg/dL Total Bilirubin 0.4 (0.0-1.0) mg/dL AST 14 (5-31) U/L ALT 19 (0-31) U/L Alkaline Phosphatase 46 D (39-117) U/L Total Protein 7.0 (6.5-8.0) g/dL Albumin 4.5 (3.5-5.0) g/dL TSH 0.47 (0.32-4.0) uIU/mL Urine Color Urine Appearance Urine pH (5.0-8.0) Ur Specific [place] (1.005-1.025) Urine Protein (NEG-TRACE) MG/DL Urine Glucose (UA) (NEG) MG/DL Urine Ketones (NEG) MG/DL Urine Blood (NEG) Urine Nitrite (NEG) Ur Leukocyte Esterase (NEG) Urine RBC (0) /HPF Urine WBC (0-4) /HPF Ur Squamous Epith Cells /LPF Urine Bacteria /LPF Urine Mucus /LPF Urine Test (NEGATIVE) COVID-19 ([place]) Negative (Negative) COVID-19 Clin Com See Note Monoscreen (Negative) 03/13/20 03/13/20 Range/Units 09:06 09:06 WBC (4.8-10.8) X10*3/uL RBC (4.20-5.50) X10*6/uL Hgb (12.0-16.0) g/dl Hct (37-47) % MCV (80-98) fL MCH (27.0-33.0) pg MCHC (31.0-35.0) g/dl RDW (11.0-16.0) % Plt Count (160-400) X10*3/uL MPV (9.4-12.3) fL Immature Gran % (Auto) (0.0-0.4) % Neut % (Auto) (45-73) % Lymph % (Auto) (20-40) % [place] % (Auto) (2-11) % Eos % (Auto) (0-4) % Baso % (Auto) (0-2) % Lymph # (Auto) (1.2-4.9) X10*3/uL [place] # (Auto) (0.1-1.2) X10*3/uL Eos # (Auto) (0.0-0.4) X10*3/uL Baso # (Auto) (0.0-0.2) X10*3/uL Abs Immat Gran (auto) (0.00-0.03) X10*3/uL Absolute Neuts (auto) (2.0-8.3) X10*3/uL Absolute Nucleated RBC (0.0-0.012) X10*3/uL Nucleated RBC % (auto) (0.0-0.2) /100WBC Sodium (135-145) mmol/L Potassium (3.3-5.1) mmol/l Chloride (96-108) mmol/L Carbon Dioxide (22-29) mmol/L Anion Gap (12-20) BUN (9-16) mg/dL Creatinine (0.5-1.4) mg/dL Estim Creat Clear Calc Estimated GFR Random Glucose (60-115) mg/dL Calcium (8.4-10.2) mg/dL Total Bilirubin (0.0-1.0) mg/dL AST (5-31) U/L ALT (0-31) U/L Alkaline Phosphatase (39-117) U/L Total Protein (6.5-8.0) g/dL Albumin (3.5-5.0) g/dL TSH (0.32-4.0) uIU/mL Urine Color YELLOW Urine Appearance CLEAR Urine pH 6.5 (5.0-8.0) Ur Specific [place] 1.020 (1.005-1.025) Urine Protein NEG (NEG-TRACE) MG/DL Urine Glucose (UA) NEG (NEG) MG/DL Urine Ketones NEG (NEG) MG/DL Urine Blood TRACE (NEG) Urine Nitrite NEG (NEG) Ur Leukocyte Esterase NEG (NEG) Urine RBC 0-2 (0) /HPF Urine WBC 0-2 (0-4) /HPF Ur Squamous Epith Cells 2+ /LPF Urine Bacteria 1+ /LPF Urine Mucus 1+ /LPF Urine Test NEGATIVE (NEGATIVE) COVID-19 ([place]) (Negative) COVID-19 Clin Com Monoscreen Negative (Negative) <Jacob Mullen MD - Last Filed: 03/21/20 23:38> Discharge Plan Discharge Clinical Impression: Nausea with vomiting <Damaso Juarez NP - Last Filed: 03/13/20 15:21> Patient Disposition: Home, Self-Care <Damaso Juarez NP - Last Filed: 03/13/20 15:21> Instructions: Acute Nausea and Vomiting (ED) <Damaso Juarez NP - Last Filed: 03/13/20 15:21> Additional Instructions: Your blood work was overall stable Your COVID test was negative Drink plenty of fluids [place] diet Take medication as prescribed Follow-up as instructed with your primary care doctor and given the recurrence of the symptoms you can follow-up with the GI doctor based on your primary care doctor's referral. Return if any concerns or worsening symptoms Thank you <Damaso Juarez NP - Last Filed: 03/13/20 15:21> Prescriptions: New ondansetron HCl [Zofran] 4 mg tablet 4 mg PO Q8H PRN (Reason: nausea and vomiting) Qty: 10 RF: 0 No Action esomeprazole magnesium 40 mg capsule,delayed release(DR/EC) 40 mg PO DAILY 30 Days Qty: 30 RF: 3 trazodone 50 mg tablet 50 mg PO BEDTIME PRN (Reason: sleep) 90 Days Qty: 90 RF: 0 ondansetron 4 mg tablet,disintegrating 4 mg PO RF: 0 azithromycin 250 mg tablet 250 mg PO ONCE 5 Days Qty: 6 RF: 0 amoxicillin-pot clavulanate [Augmentin] 875-125 mg tablet 1 tab PO BID Qty: 20 RF: 0 omeprazole magnesium [Prilosec OTC] 20 mg tablet,delayed release (DR/EC) 20 mg PO BID RF: 0 sucralfate 1 gram tablet 1 g PO TID RF: 0 loratadine 10 mg tablet 10 mg PO DAILY RF: 0 Linzess 145 mcg capsule 145 mcg PO QAM 30 Days Qty: 30 RF: 2 polyethylene glycol 3350 [Miralax] 17 gram/dose powder 17 g PO BID 30 Days Qty: 1020 RF: 0 Fleet Bisacodyl 10 mg/30 mL enema 10 mg [place] DAILY PRN (Reason: constipation) 3 Days Qty: 40 RF: 3 esomeprazole magnesium [Nexium Packet] [address] for susp in packet 40 mg PO DAILY 30 Days Qty: 30 RF: 3 <Damaso Juarez NP - Last Filed: 03/13/20 15:21> Referrals: Gary White MD [Primary Care Provider] - 1 week <Damaso Juarez NP - Last Filed: 03/13/20 15:21> Stand Alone Forms: Work/School Release <Damaso Juarez NP - Last Filed: 03/13/20 15:21> Interventions: ED Discharge Assessment Last Done: 03/13/20 11:27 <Damaso Juarez NP - Last Filed: 03/13/20 15:21> Discharge Date/Time: 03/13/20 11:27 <Damaso Juarez NP - Last Filed: 03/13/20 15:21>
[2020-03-13 09:13] LABS: MANUAL DIFF FLAG NO
[2020-03-13 09:15] LABS: Basophils Absolute Auto 0.1 X10*3/uL (0.0-0.2); Basophils Percent Auto 0.9 % (0-2); Eosinophils Absolute Auto 0.1 X10*3/uL (0.0-0.4); Eosinophils Percent Auto 1.8 % (0-4); Hematocrit 39.9 % (37-47); Hemoglobin 13.4 g/dl (12.0-16.0); Imm Gran Abs Auto 0.01 X10*3/uL (0.00-0.03); Imm Gran Pct Auto 0.2 % (0.0-0.4); Lymphocytes Absolute Auto 2.1 X10*3/uL (1.2-4.9); Lymphocytes Percent Auto 31.4 % (20-40); Mean Corpuscular HGB Conc 33.6 g/dl (31.0-35.0); Mean Corpuscular Hemoglobin 29.5 pg (27.0-33.0); Mean Corpuscular Volume 87.9 fL (80-98); Mean Platelet Volume 9.7 fL (9.4-12.3); Monocytes Absolute Auto 0.4 X10*3/uL (0.1-1.2); Monocytes Percent Auto 5.9 % (2-11); Neutrophils Absolute Auto 3.9 X10*3/uL (2.0-8.3); Neutrophils Percent Auto 59.8 % (45-73); Platelet Count 431 X10*3/uL (160-400); Red Blood Count 4.54 X10*6/uL (4.20-5.50); Red Cell Distribution Width 11.7 % (11.0-16.0); White Blood Count 6.6 X10*3/uL (4.8-10.8)
[2020-03-13 09:24] LABS: Glucose Urine UA NEG (NEG); Leukocyte Esterase Urine NEG (NEG); Nitrite Urine NEG (NEG); PH 6.5 (5.0-8.0); UPreg QC Valid YES; Urine Blood TRACE (NEG); Urine Ketones NEG (NEG); Urine Pregnancy NEGATIVE (NEGATIVE); Urine Protein NEG (NEG-TRACE)
[2020-03-13 09:25] LABS: Appearance Urine CLEAR; Color Urine YELLOW
[2020-03-13] MEDS: 0.9 % Sodium Chloride 1,000 ML 999 ML IV (09:27)
[2020-03-13 09:36] LABS: Bacteria Urine 1+ /LPF; RBC Urine 0-2 /HPF (0); Squamous Epithelial Cell Urine 2+ /LPF; WBC Urine 0-2 /HPF (0-4)
[2020-03-13 09:37] LABS: Mucus Urine 1+ /LPF
[2020-03-13 09:40] LABS: Alanine Aminotransferase 19 U/L (0-31); Albumin Level 4.5 g/dL (3.5-5.0); Alkaline Phosphatase 46 U/L (39-117); Anion Gap 12 (12-20); Aspartate Amino Transferase 14 U/L (5-31); Bilirubin Total 0.4 mg/dL (0.0-1.0); Blood Urea Nitrogen 13 mg/dL (9-16); Calcium 9.6 mg/dL (8.4-10.2); Carbon Dioxide 28 mmol/L (22-29); Chloride 104 mmol/L (96-108); Estimated Glomerular Filt Rate > 60; Glucose Random 91 mg/dL (60-115); Potassium 4.3 mmol/l (3.3-5.1); Sodium 140 mmol/L (135-145)
[2020-03-13 09:41] LABS: COVID-19 Test Negative (Negative)
[2020-03-13 10:53] VITALS: BP 110/68; PULSE 71; RESP 16; TEMP 36.7; O2SAT 100
[2020-03-13 11:56] LABS: Thyroid Stimulating Hormone 0.47 uIU/mL (0.32-4.0)
[2020-03-13 11:58] LABS: Monotest Negative (Negative)
== END 2020-03-13 11:27 | disposition home or self-care (01) ==
PROVIDERS: Nurse Practitioner Primary Care; Emergency Provider Emergency Medicine; PCP Internal Medicine
DX: R11.2 Nausea with vomiting, unspecified (principal); Z20.822 Contact with and (suspected) exposure to COVID-19; K21.9 Gastro-esophageal reflux disease without esophagitis; F17.290 Nicotine dependence, other tobacco product, uncomplicated; Z90.49 Acquired absence of other specified parts of digestive tract
CPT/HCPCS: 36415; 80053; 81001; 81025; 84443; 85025; 86308; 87635; 96360; 99284

== ENCOUNTER 2020-03-27 19:35 | Emergency (ER) | payer OTHER, SELFPAY ==
[2020-03-27 19:42] VITALS: BP 130/88; PULSE 92; RESP 16; TEMP 36.7; O2SAT 99; BMI 24.1
--- NOTE | 2020-03-27 19:49 | CT_ITS ---
EXAMINATION: CT SOFT TISSUE NECK WITH CONTRAST CLINICAL INFORMATION: Swelling. Difficulty swallowing. COMPARISON: None TECHNIQUE: Following the intravenous administration of 60 mL of Omnipaque 350 intravenous contrast, helical imaging was performed in the axial plane with generation of coronal and sagittal reformatted images. This CT examination was performed using dose optimization techniques as appropriate, variously including the following: *Automated exposure control *Adjustment of mA and/or kV according to patient size (this includes techniques or standardized protocols for targeted exams where dose is matched to indication/reason for exam; i.e. extremities or head) *Use of iterative reconstruction technique DLP: 362 mGy-cm FINDINGS: No cervical adenopathy is identified. The parotid glands are homogeneous in attenuation. The submandibular glands are normal. No contour abnormality or pathologic enhancement is seen within the oral cavity or pharyngeal mucosal space. The laryngeal structures are normal. The parapharyngeal fat is preserved. The carotid sheath vasculature opacify normally. No extra mucosal soft tissue mass or fluid collection is seen. No retropharyngeal fluid collection is seen. The thyroid gland is normal. The superior mediastinum is unremarkable. The lung apices are clear. The mastoid air cells and visualized portions of the paranasal sinuses are well-aerated. The temporomandibular joints are normal. No osseous abnormalities are seen. The imaged portions of the brain parenchyma are unremarkable. CT/CT soft tissue neck w con IMPRESSION: Unremarkable examination.
--- NOTE | 2020-03-27 20:22 | ED.GENADULT ---
HPI - General Adult General Chief complaint: General Medical Stated complaint: throat Swelling Time Seen by Provider: 03/27/20 19:49 Source: patient Mode of arrival: ambulatory Limitations: no limitations History of Present Illness HPI narrative: 24-year-old female with past medical history ADHD, dyspepsia, GERD, ovarian cyst, history of dysphagia presents with neck swelling and difficulty swallowing. She states that the pain and difficulty swelling has progressively increased and feels like her throat is tight. She does not have any anaphylactic allergies that she knows of, is able to swallow her secretions, and is able to eat and drink without difficulty. She does report pain to both sides of her neck on flexion extension and rotation. She denies fevers, chills, chest pain or pressure, palpitations, shortness of breath, abdominal pain, abdominal distention, dysuria, hematuria, and edema. Onset (ago): unknown Location: neck Severity: moderate Severity scale (1-10): 6 Quality: aching and constant Pain Consistency: constant Relieving factors: none Exacerbating factors: eating and movement Associated symptoms: denies other symptoms Related Data Home Medications Medication Instructions Recorded Confirmed loratadine 10 mg tablet 10 mg PO DAILY 12/25/19 02/27/20 sucralfate 1 gram tablet 1 g PO TID 12/25/19 02/27/20 ondansetron 4 mg disintegrating 4 mg PO 01/03/20 02/27/20 tablet omeprazole magnesium 20 mg 20 mg PO BID 02/16/20 02/27/20 tablet,delayed release Previous Rx's Medication Instructions Recorded linaclotide 145 mcg capsule 145 mcg PO QAM 30 Days #30 cap 12/25/19 bisacodyl 10 mg/30 mL enema 10 mg PA DAILY PRN 3 Days #40 ml 02/01/20 esomeprazole magnesium 40 mg 40 mg PO DAILY 30 Days #30 ea 02/01/20 granules delayed release for susp polyethylene glycol 3350 17 17 g PO BID 30 Days #1020 g 02/01/20 gram/dose oral powder esomeprazole magnesium 40 mg 40 mg PO DAILY 30 Days #30 cap 02/08/20 capsule,delayed release amoxicillin 875 mg-potassium 1 tab PO BID #20 tab 02/19/20 clavulanate 125 mg tablet azithromycin 250 mg tablet 250 mg PO ONCE 5 Days #6 tab 12/29/20 trazodone 50 mg tablet 50 mg PO BEDTIME PRN 90 Days #90 03/10/20 tab ondansetron HCl [Zofran] 4 mg PO Q8H PRN #10 tab 03/13/20 Allergies Allergy/AdvReac Type Severity Reaction Status Date / Time erythromycin base Allergy Unknown UNKNOWN Verified 02/27/20 09:10 [ERYTHROMYCIN BASE] escitalopram [From LEXAPRO] AdvReac Unknown NAUSEA Verified 02/19/20 09:23 seasonal allergies Allergy Unknown Unknown Uncoded 02/19/20 09:23 Review of Systems Review of Systems: Constitutional: No Fever, No Chills ENT/Mouth: No Ear Pain, No Hoarseness, No sore throat Eyes: No Eye Pain, No Swelling, No Redness, No Foreign Body Cardiovascular: No Chest Pain, No SOB Respiratory: No Cough, No Dyspnea Gastrointestinal: Positive dysphagia, No Nausea, No Vomiting, No Diarrhea, No abdominal Pain Genitourinary: No Dysuria, No Hematuria Musculoskeletal: positive neck pain, No Myalgias, No Joint Swelling Skin: No Skin lacerations, No rash Neuro: No Weakness, No Numbness, No Paresthesias, No Loss of Consciousness, No Dizziness, No Headache Psych: No Anxiety/Panic, No Depression Heme/Lymph: no easy bruising, no Lymphadenopathy Endocrine: No Polyuria, No Polydipsia Yes all other systems are reviewed and are negative [facility] Past Medical History Attestation statement: The following information was validated with the patient. Source: old records reviewed Medical History ADHD Chronic constipation Difficulty sleeping Dyspepsia Environmental allergies GERD (gastroesophageal reflux disease) Insomnia Itchy eyes Nausea and vomiting Ovarian cyst Seasonal allergies Shoulder injury Shoulder pain, left Sprain of left ankle Tobacco use Upper abdominal pain Surgical History Hx of endoscopy Hx of wisdom tooth extraction Family History Family History Father History of diabetes mellitus Mother No problems noted. Other Cluster headaches Multiple sclerosis Social History Social History Alcohol intake: never Smoking Status: Never smoker Tobacco Type: E-Cigarette Advance Directives: No Advance Directives Information Provided: Yes Physical Exam Vital Signs: Vital Signs: Last Vital Signs Temp 97.6 F 03/27/20 21:30 Pulse 72 03/27/20 21:30 Resp 18 03/27/20 21:30 BP 94/63 03/27/20 21:30 Pulse Ox 97 03/27/20 21:30 Body Mass Index 24.1 Appearance: Alert. Oriented X3. No acute distress. Eyes: Pupils equal, round and reactive to light. ENT: Pharynx normal. Neck: Normal inspection. Neck supple. CVS: Normal heart rate and rhythm. Pulses normal. Respiratory: No respiratory distress. Breath sounds normal. Abdomen: Soft and nontender. Skin: Skin warm and dry. Normal skin color. Normal skin turgor. Extremities: No lower extremity edema. Neuro: No motor deficit. No sensory deficit. Course Course Course Narrative: 24-year-old female presents with neck swelling, throat tightness, and difficulty swallowing. Patient does have neck pain with flexion extension and rotation. Lung sounds are clear, no tracheal stridor, patient is able to manage secretions. Will order CT scan of soft tissues of neck. No indication of abnormal findings on CT scan of soft tissues. Plan of care is for patient to follow-up with ENT and/or Gastroenterology. CBC, Chem 7 and urinalysis negative for acute findings. Plan of care is to discharge home. Patient verbalized understanding of and agrees plan of care. Medical Decision Making Differential Diagnosis Differential Diagnosis: Dysphagia, neck mass, abscess, parotiditis, esophageal stricture narrowing Medical Records Medical records reviewed: Yes I reviewed the patient's medical records. Lab Data Lab results reviewed: Yes I reviewed the patient's lab results. Result diagrams: 03/27/20 20:21 03/27/20 20:21 Labs: Lab Results 03/27/20 03/27/20 03/27/20 Range/Units 20:21 20:21 20:21 WBC 10.4 (4.8-10.8) X10*3/uL RBC 4.29 (4.20-5.50) X10*6/uL Hgb 12.7 (12.0-16.0) g/dl Hct 36.9 L (37-47) % MCV 86.0 (80-98) fL MCH 29.6 (27.0-33.0) pg MCHC 34.4 (31.0-35.0) g/dl RDW 11.8 (11.0-16.0) % Plt Count 389 (160-400) X10*3/uL MPV 10.0 (9.4-12.3) fL Immature Gran % (Auto) 0.2 (0.0-0.4) % Neut % (Auto) 53.8 (45-73) % Lymph % (Auto) 36.2 (20-40) % [place] % (Auto) 6.1 (2-11) % Eos % (Auto) 2.7 (0-4) % Baso % (Auto) 1.0 (0-2) % Lymph # (Auto) 3.8 (1.2-4.9) X10*3/uL [place] # (Auto) 0.6 (0.1-1.2) X10*3/uL Eos # (Auto) 0.3 (0.0-0.4) X10*3/uL Baso # (Auto) 0.1 (0.0-0.2) X10*3/uL Abs Immat Gran (auto) 0.02 (0.00-0.03) X10*3/uL Absolute Neuts (auto) 5.6 (2.0-8.3) X10*3/uL Absolute Nucleated RBC 0.000 (0.0-0.012) X10*3/uL Nucleated RBC % (auto) 0.0 (0.0-0.2) /100WBC Sodium 138 (135-145) mmol/L Potassium 3.6 (3.3-5.1) mmol/l Chloride 104 (96-108) mmol/L Carbon Dioxide 26 (22-29) mmol/L Anion Gap 12 (12-20) BUN 10 (9-16) mg/dL Creatinine 0.72 (0.5-1.4) mg/dL Estim Creat Clear Calc 108.4 Estimated GFR > 60 Random Glucose 94 (60-115) mg/dL Lactic Acid 0.7 (0.5-2.0) mmol/L Calcium 9.2 (8.4-10.2) mg/dL Urine Color Urine Appearance Urine pH (5.0-8.0) Ur Specific [place] (1.005-1.025) Urine Protein (NEG-TRACE) MG/DL Urine Glucose (UA) (NEG) MG/DL Urine Ketones (NEG) MG/DL Urine Blood (NEG) Urine Nitrite (NEG) Ur Leukocyte Esterase (NEG) Urine RBC (0) /HPF Urine WBC (0-4) /HPF Ur Squamous Epith Cells /LPF Urine Bacteria /LPF Urine Test (NEGATIVE) 03/27/20 Range/Units 20:56 WBC (4.8-10.8) X10*3/uL RBC (4.20-5.50) X10*6/uL Hgb (12.0-16.0) g/dl Hct (37-47) % MCV (80-98) fL MCH (27.0-33.0) pg MCHC (31.0-35.0) g/dl RDW (11.0-16.0) % Plt Count (160-400) X10*3/uL MPV (9.4-12.3) fL Immature Gran % (Auto) (0.0-0.4) % Neut % (Auto) (45-73) % Lymph % (Auto) (20-40) % [place] % (Auto) (2-11) % Eos % (Auto) (0-4) % Baso % (Auto) (0-2) % Lymph # (Auto) (1.2-4.9) X10*3/uL [place] # (Auto) (0.1-1.2) X10*3/uL Eos # (Auto) (0.0-0.4) X10*3/uL Baso # (Auto) (0.0-0.2) X10*3/uL Abs Immat Gran (auto) (0.00-0.03) X10*3/uL Absolute Neuts (auto) (2.0-8.3) X10*3/uL Absolute Nucleated RBC (0.0-0.012) X10*3/uL Nucleated RBC % (auto) (0.0-0.2) /100WBC Sodium (135-145) mmol/L Potassium (3.3-5.1) mmol/l Chloride (96-108) mmol/L Carbon Dioxide (22-29) mmol/L Anion Gap (12-20) BUN (9-16) mg/dL Creatinine (0.5-1.4) mg/dL Estim Creat Clear Calc Estimated GFR Random Glucose (60-115) mg/dL Lactic Acid (0.5-2.0) mmol/L Calcium (8.4-10.2) mg/dL Urine Color YELLOW Urine Appearance CLEAR Urine pH 6.5 (5.0-8.0) Ur Specific [place] 1.010 (1.005-1.025) Urine Protein NEG (NEG-TRACE) MG/DL Urine Glucose (UA) NEG (NEG) MG/DL Urine Ketones NEG (NEG) MG/DL Urine Blood TRACE (NEG) Urine Nitrite NEG (NEG) Ur Leukocyte Esterase NEG (NEG) Urine RBC 1-4 (0) /HPF Urine WBC 0-2 (0-4) /HPF Ur Squamous Epith Cells 2+ /LPF Urine Bacteria 1+ /LPF Urine Test NEGATIVE (NEGATIVE) Imaging Data CT soft tissue neck: Attestation: I personally reviewed and interpreted this imaging study as follows: Radiologist's impression: EXAMINATION: CT SOFT TISSUE NECK WITH CONTRAST CLINICAL INFORMATION: Swelling. Difficulty swallowing. COMPARISON: None TECHNIQUE: Following the intravenous administration of 60 mL of Omnipaque 350 intravenous contrast, helical imaging was performed in the axial plane with generation of coronal and sagittal reformatted images. This CT examination was performed using dose optimization techniques as appropriate, variously including the following: *Automated exposure control *Adjustment of mA and/or kV according to patient size (this includes techniques or standardized protocols for targeted exams where dose is matched to indication/reason for exam; i.e. extremities or head) *Use of iterative reconstruction technique DLP: 362 mGy-cm FINDINGS: No cervical adenopathy is identified. The parotid glands are homogeneous in attenuation. The submandibular glands are normal. No contour abnormality or pathologic enhancement is seen within the oral cavity or pharyngeal mucosal space. The laryngeal structures are normal. The parapharyngeal fat is preserved. The carotid sheath vasculature opacify normally. No extra mucosal soft tissue mass or fluid collection is seen. No retropharyngeal fluid collection is seen. The thyroid gland is normal. The superior mediastinum is unremarkable. The lung apices are clear. The mastoid air cells and visualized portions of the paranasal sinuses are well-aerated. The temporomandibular joints are normal. No osseous abnormalities are seen. The imaged portions of the brain parenchyma are unremarkable. CT/CT soft tissue neck w con IMPRESSION: Unremarkable examination. Discharge Plan Discharge Clinical Impression: Sensation of swollen throat Patient Disposition: Home, Self-Care Instructions: Level 1 National Dysphagia Diet (DC), Dysphagia (ED) Additional Instructions: You were evaluated for sensation of swollen throat and esophagus. CT scan of the neck and soft tissues was negative for acute findings requiring emergent intervention. This is a recurring sensation for you, it is highly advised to follow-up with ENT and/or Gastroenterology. Please call and make an appointment. Thank you for choosing this emergency department for evaluation. Please follow-up with primary care physician as needed. Return to the emergency department for any new, concerning, or worsening symptoms. Prescriptions: No Action esomeprazole magnesium 40 mg capsule,delayed release(DR/EC) 40 mg PO DAILY 30 Days Qty: 30 RF: 3 trazodone 50 mg tablet 50 mg PO BEDTIME PRN (Reason: sleep) 90 Days Qty: 90 RF: 0 ondansetron HCl [Zofran] 4 mg tablet 4 mg PO Q8H PRN (Reason: nausea and vomiting) Qty: 10 RF: 0 ondansetron 4 mg tablet,disintegrating 4 mg PO RF: 0 azithromycin 250 mg tablet 250 mg PO ONCE 5 Days Qty: 6 RF: 0 amoxicillin-pot clavulanate [Augmentin] 875-125 mg tablet 1 tab PO BID Qty: 20 RF: 0 omeprazole magnesium [Prilosec OTC] 20 mg tablet,delayed release (DR/EC) 20 mg PO BID RF: 0 sucralfate 1 gram tablet 1 g PO TID RF: 0 loratadine 10 mg tablet 10 mg PO DAILY RF: 0 Linzess 145 mcg capsule 145 mcg PO QAM 30 Days Qty: 30 RF: 2 polyethylene glycol 3350 [Miralax] 17 gram/dose powder 17 g PO BID 30 Days Qty: 1020 RF: 0 Fleet Bisacodyl 10 mg/30 mL enema 10 mg PA DAILY PRN (Reason: constipation) 3 Days Qty: 40 RF: 3 esomeprazole magnesium [Nexium Packet] [address] for susp in packet 40 mg PO DAILY 30 Days Qty: 30 RF: 3 Referrals: Jarred Barker [Physician] - 2 days (Difficulty swallowing) Yogi Espinal [Physician] - 2 days (Difficulty swelling, neck swelling and pain) Interventions: ED Discharge Assessment Last Done: 03/28/20 00:17 Discharge Date/Time: 03/28/20 00:19
[2020-03-27 20:31] LABS: MANUAL DIFF FLAG NO
[2020-03-27 20:33] LABS: Basophils Absolute Auto 0.1 X10*3/uL (0.0-0.2); Eosinophils Absolute Auto 0.3 X10*3/uL (0.0-0.4); Eosinophils Percent Auto 2.7 % (0-4); Hematocrit 36.9 % (37-47); Hemoglobin 12.7 g/dl (12.0-16.0); Imm Gran Abs Auto 0.02 X10*3/uL (0.00-0.03); Imm Gran Pct Auto 0.2 % (0.0-0.4); Lymphocytes Absolute Auto 3.8 X10*3/uL (1.2-4.9); Lymphocytes Percent Auto 36.2 % (20-40); Mean Corpuscular HGB Conc 34.4 g/dl (31.0-35.0); Mean Corpuscular Hemoglobin 29.6 pg (27.0-33.0); Monocytes Absolute Auto 0.6 X10*3/uL (0.1-1.2); Monocytes Percent Auto 6.1 % (2-11); Neutrophils Absolute Auto 5.6 X10*3/uL (2.0-8.3); Neutrophils Percent Auto 53.8 % (45-73); Platelet Count 389 X10*3/uL (160-400); Red Blood Count 4.29 X10*6/uL (4.20-5.50); Red Cell Distribution Width 11.8 % (11.0-16.0); White Blood Count 10.4 X10*3/uL (4.8-10.8)
[2020-03-27 20:53] LABS: Lactic Acid 0.7 mmol/L (0.5-2.0)
[2020-03-27 20:56] LABS: Anion Gap 12 (12-20); Blood Urea Nitrogen 10 mg/dL (9-16); Calcium 9.2 mg/dL (8.4-10.2); Carbon Dioxide 26 mmol/L (22-29); Chloride 104 mmol/L (96-108); Creatinine Clr Calc Pharmacy 108.4; Estimated Glomerular Filt Rate > 60; Glucose Random 94 mg/dL (60-115); Potassium 3.6 mmol/l (3.3-5.1); Sodium 138 mmol/L (135-145)
[2020-03-27 21:01] LABS: Glucose Urine UA NEG (NEG); Leukocyte Esterase Urine NEG (NEG); Nitrite Urine NEG (NEG); PH 6.5 (5.0-8.0); Urine Blood TRACE (NEG); Urine Ketones NEG (NEG); Urine Protein NEG (NEG-TRACE)
[2020-03-27 21:07] LABS: Appearance Urine CLEAR; Color Urine YELLOW
[2020-03-27 21:14] LABS: Bacteria Urine 1+ /LPF; Squamous Epithelial Cell Urine 2+ /LPF; WBC Urine 0-2 /HPF (0-4)
[2020-03-27 21:30] VITALS: BP 94/63; PULSE 72; RESP 18; TEMP 36.4; O2SAT 97
[2020-03-27 22:14] LABS: UPreg QC Valid YES; Urine Pregnancy NEGATIVE (NEGATIVE)
[2020-03-27] MEDS: iohexoL 350 MG/ML 100 ML INFUS..BTL IV (22:41)
== END 2020-03-28 00:19 | disposition home or self-care (01) ==
PROVIDERS: Nurse Practitioner Family; Emergency Provider Emergency Medicine; PCP Internal Medicine
DX: R13.10 Dysphagia, unspecified (principal); M54.2 Cervicalgia; Z79.899 Other long term (current) drug therapy
CPT/HCPCS: 36415; 70491; 80048; 81001; 81003; 81025; 83605; 85025; 87040; 99284; Q9967

== ENCOUNTER → 2020-03-28 13:26 | Outpatient (BNVA) | payer OTHER, MEDICAID, SELFPAY | PROVIDERS: PCP Internal Medicine; Visit Provider Internal Medicine Gastroenterology ==

== ENCOUNTER 2020-04-10 14:39 | Emergency (ER) | payer OTHER, SELFPAY ==
--- NOTE | ~2020-04-10 | US_ITS ---
EXAMINATION: US VENOUS WITH DOPPLER UPPER EXTREMITY, LEFT CLINICAL INFORMATION: Left medial elbow lump. Recent IVP. Question DVT. Question phlebitis COMPARISON: None TECHNIQUE: Ultrasound of the upper extremity is performed using compression sonography and color and pulse Doppler flow with assessment of augmentation of flow. There is also imaging and Doppler assessment of the jugular and subclavian veins. Spectral analysis with color-flow imaging is performed. FINDINGS: Respiratory variation, normal compression, and augmented flow are noted throughout the upper extremity including the axillary, brachial, cubital, and radial and ulnar veins. There is normal flow in the internal jugular and subclavian veins. The cephalic vein was not visualized on the current study. There is no visible deep or superficial thrombophlebitis. If the patient's symptoms progress, a followup ultrasound in 5 -7 days might be of value to exclude proximal propagation from a nonvisualized distal arm vein. US/US venous duplex UE LT IMPRESSION: No DVT demonstrated in the left upper extremity
--- NOTE | ~2020-04-10 | XR_ITS ---
EXAMINATION: XR ELBOW, LEFT CLINICAL INFORMATION: Left medial elbow pain. COMPARISON: None TECHNIQUE: AP, lateral, and oblique views of the left elbow. FINDINGS: The bones and soft tissues are normal. No fracture or joint effusion. Alignment is anatomic. Joint spaces are maintained. XR/XR elbow LT min 3V IMPRESSION: Unremarkable left elbow exam.
[2020-04-10 14:40] VITALS: BP 116/77; PULSE 106; RESP 16; TEMP 37; O2SAT 99; BMI 23.6
--- NOTE | 2020-04-10 15:08 | PC.NURSE ---
no redness/warmth to left ac area, +tenderness
[2020-04-10 16:00] VITALS: BP 105/67; PULSE 63; RESP 16; TEMP 36.1; O2SAT 99
--- NOTE | 2020-04-10 16:03 | ED.EXTPRO ---
HPI - Extremity Problem General Chief complaint: Extremity Problem Stated complaint: painful lump left arm Time Seen by Provider: 04/10/20 15:40 Source: patient Mode of arrival: ambulatory Limitations: no limitations History of Present Illness HPI Narrative: Patient presents to the ED for left medial antecubital/elbow pain and thinks she sees a lump. Patient denies redness, fever, chills, or IV Drug use. Patient states no recent trauma. Patient states two weeks ago she IV placed in that area, but did not have any symptoms after. patietnt states symptoms started today. MD Complaint: extremity pain Related Data Home Medications Medication Instructions Recorded Confirmed loratadine 10 mg tablet 10 mg PO DAILY 12/25/19 03/28/20 ondansetron 4 mg disintegrating 4 mg PO 01/03/20 03/28/20 tablet omeprazole magnesium 20 mg 20 mg PO BID 02/16/20 03/28/20 tablet,delayed release sucralfate 1 gram tablet 1 g PO ONCE tab 03/28/20 03/28/20 Previous Rx's Medication Instructions Recorded polyethylene glycol 3350 17 17 g PO BID 30 Days #1020 g 02/01/20 gram/dose oral powder trazodone 50 mg tablet 50 mg PO BEDTIME PRN 90 Days #90 03/10/20 tab acetaminophen [Tylenol] 325 mg PO QID PRN #28 cap 04/10/20 cyclobenzaprine 10 mg PO TID PRN #15 tab 04/10/20 Allergies Allergy/AdvReac Type Severity Reaction Status Date / Time erythromycin base Allergy Unknown UNKNOWN Verified 03/28/20 13:27 [ERYTHROMYCIN BASE] escitalopram [From LEXAPRO] AdvReac Unknown NAUSEA Verified 03/28/20 13:27 seasonal allergies Allergy Unknown Unknown Uncoded 03/28/20 13:27 Review of Systems Review of Systems: Yes all other systems are reviewed and are negative Constitutional: Constitutional: Reports as per HPI and Reports no additional constitutional complaints Eyes: Eyes: Reports as per HPI and Reports no additional eye complaints ENT: Reports system reviewed and no additional complaints, except as documented and Reports as per HPI Cardiovascular: Cardiovascular: Reports as per HPI and Reports no additional cardiovascular complaints Respiratory: Respiratory: Reports as per HPI and Reports no additional respiratory complaints Gastrointestinal: Gastrointestinal: Reports as per HPI and Reports no additional gastrointestinal complaints Genitourinary: Genitourinary: Reports no additional female genitourinary complaints and Reports as per HPI Musculoskeletal: Musculoskeletal: Reports no additional musculoskeletal complaints and Reports as per HPI Comments: left medial antecubital/elbow pain Integumentary/Breasts: Skin/Breast: Reports system reviewed and no additional complaints, except as docu and Reports as per HPI Neurologic: Reports system reviewed and no additional complaints, except as documented and Reports as per HPI Psychiatric: Psychiatric: Reports no additional psychiatric complaints and Reports as per HPI PMFSH Past Medical History Medical History ADHD Chronic constipation Difficulty sleeping Dyspepsia Environmental allergies Gastritis GERD (gastroesophageal reflux disease) Insomnia Itchy eyes Nausea and vomiting Ovarian cyst Seasonal allergies Shoulder injury Shoulder pain, left Sprain of left ankle Tobacco use Upper abdominal pain Surgical History Hx of endoscopy Hx of wisdom tooth extraction Family History Family History Father History of diabetes mellitus Mother No problems noted. 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 Physical Exam Vital Signs: Vital Signs: Last Vital Signs Temp 97.0 F 04/10/20 16:00 Pulse 63 04/10/20 16:00 Resp 16 04/10/20 16:00 BP 105/67 04/10/20 16:00 Pulse Ox 99 04/10/20 16:00 Body Mass Index 23.6 Const: General: cooperative, healthy appearing, comfortable, no acute distress, well developed, alert, awake and Physically active Orientation/consciousness: patient oriented x3 HENMT: Head: Yes normal to inspection, Yes No palpable skull fracture present, Yes normocephalic, Yes atraumatic and No abrasion Eyes: General: appearance normal, both eyes and all related structures Neck: Neck: Yes normal visual inspection, Yes full ROM, Yes no lymphadenopathy, Yes no meningeal signs, Yes trachea midline, Yes supple and No tender Chest: Chest palpation & inspection: normal inspection of the chest and normal palpation of entire chest wall Resp: Effort & Inspection: normal respiratory effort and able to speak in complete sentences Auscultation: clear to auscultation bilaterally Cardio: Jugular venous distension: no JVD Heart sounds: S1 normal heart sound present and S2 normal heart sound present GI: Inspection: Yes normal to inspection and No abdominal wall ecchymosis Palpation (GI): Soft to palpation, not firm, nontender, no guarding and not rigid : General: No CVA tenderness and Yes no CVA tenderness Back/Spine/Pelvis: Back: no CVA tenderness, No CVA tenderness and No back tenderness Skin: General skin exam: no rashes or lesions noted and elasticity normal Neuro: General: patient oriented x3, gait normal, no meningeal signs and CN's II-XI intact bilaterally Cranial nerves: Yes CN's II-XII intact bilaterally Extrem: Other: Left upper extremity: Negative for any swelliing, redness, deformities, bluish discloration of fingers, or crepitus. Medial side of elbow/antecubital negative positive for tenderness, but negative for any erythema, mass, or fluctulance. Vascular, motor, and neuro exam is intact. Right upper extremity is normal and motor, neuro, and vascular exam is intact. General: Yes normal to inspection and Yes full ROM Psych: Appearance: grossly normal, well kempt and not disheveled Course Course Course Narrative: Patient will be sent for left elbow xray. Reevaluation(s) Reevaluation #1: Left elbow xray negative for fracutre, dislocation, effusion, or arthritis. Ultrasound ordered to evaluate for phlebitis due to patient stating IV was placed in that area. Low suscipisos for DVT Time: 16:24 Reevaluation #2: Patient was informed that ultrasound was negative for DVT/phlebitis/abscess. patient than informed that while shoving yesterday she pulled her elbow and than had pain immedately. with new information diagnosis is shoulder sprain. Patient able to flex/extend elbow with no limitation. MDM - Extremity (Nontraumatic) MDM Narrative Medical decision making narrative: elbow sprain Discharge Plan Discharge Clinical Impression: Elbow sprain Patient Disposition: Home, Self-Care Instructions: Elbow Sprain (ED) Additional Instructions: Return to the ED for swelling of elbow, fever, chills, redness, coldness of skin, bluish discoloration of finger, warm skin, worsening pain, or any other concerning symptoms. Follow up with PCP. Prescriptions: New cyclobenzaprine 10 mg tablet 10 mg PO TID PRN (Reason: sprain) Qty: 15 RF: 0 acetaminophen [Tylenol] 325 mg capsule 325 mg PO QID PRN (Reason: pain) Qty: 28 RF: 0 No Action trazodone 50 mg tablet 50 mg PO BEDTIME PRN (Reason: sleep) 90 Days Qty: 90 RF: 0 ondansetron 4 mg tablet,disintegrating 4 mg PO RF: 0 omeprazole magnesium [Prilosec OTC] 20 mg tablet,delayed release (DR/EC) 20 mg PO BID RF: 0 loratadine 10 mg tablet 10 mg PO DAILY RF: 0 sucralfate 1 gram tablet 1 g PO ONCE RF: 0 polyethylene glycol 3350 [Miralax] 17 gram/dose powder 17 g PO BID 30 Days Qty: 1020 RF: 0 Print Language: Macedonian
== END 2020-04-10 17:52 | disposition home or self-care (01) ==
PROVIDERS: Emergency Provider Emergency Medicine Emergency Medical Services; PCP Internal Medicine
DX: M25.522 Pain in left elbow (principal); S53.402A Unspecified sprain of left elbow, initial encounter; X50.0XXA Overexertion from strenuous movement or load, initial encounter; F17.290 Nicotine dependence, other tobacco product, uncomplicated; Y93.H1 Activity, digging, shoveling and raking; Y92.014 Private driveway to single-family (private) house as the place of occurrence of the external cause; Y99.9 Unspecified external cause status
CPT/HCPCS: 73080; 93971; 99284

== ENCOUNTER 2020-04-23 09:12 | Outpatient (REF) | payer OTHER, SELFPAY | END 2020-04-23 09:13 | disposition home or self-care (01) | LOC: HO.LAB 09:12 | PROVIDERS: Visit Provider Nurse Practitioner Family | DX: R52 Pain, unspecified (principal); Z20.822 Contact with and (suspected) exposure to COVID-19 | CPT/HCPCS: 36415; U0003; U0005 ==

== ENCOUNTER → 2020-05-09 13:55 | Outpatient (BNVA) | payer OTHER, SELFPAY | PROVIDERS: PCP Internal Medicine; Visit Provider Internal Medicine Gastroenterology ==

== ENCOUNTER 2020-05-27 09:00 | Outpatient (REF) | payer OTHER, SELFPAY ==
--- NOTE | ~2020-05-27 | MR_ITS ---
EXAMINATION: MR OF THE ABDOMEN AND PELVIS WITH AND WITHOUT CONTRAST CLINICAL INFORMATION: Nausea and vomiting COMPARISON: Previous CT of the abdomen and pelvis 11/18/2009 Limited abdominal ultrasound October 2019 TECHNIQUE: Sagittal axial and coronal sequences through the abdomen and pelvis following 1.5 L of oral recent contrast and with and without IV contrast. The patient received 6.5 mL intravenous Gadavist contrast. FINDINGS: The stomach is well-distended and normal appearing. The small bowel is normal appearing. No dilatation, stricture, wall thickening or wall enhancement is seen. The large bowel is normal appearing. No dilatation, wall thickening, stricture or wall enhancement is seen. The appendix is normal appearing. No fistula, ascites or increased vascularity adjacent to the bowel is seen. The lung bases are clear. The liver and gallbladder are normal. There is no biliary duct dilatation. The spleen is normal. The pancreas is normal. The adrenal glands and kidneys are normal. The bladder is normal. There is an IUD in the uterus. The uterus and ovaries are otherwise unremarkable. No hernia is seen. No adenopathy is seen. Vascular structures are unremarkable. Bony structures are unremarkable. MR/MR pelvis wo/w con IMPRESSION: Unremarkable enterography exam of the abdomen and pelvis.
--- NOTE | ~2020-05-27 | MR_ITS ---
EXAMINATION: MR OF THE ABDOMEN AND PELVIS WITH AND WITHOUT CONTRAST CLINICAL INFORMATION: Nausea and vomiting COMPARISON: Previous CT of the abdomen and pelvis 11/18/2009 Limited abdominal ultrasound October 2019 TECHNIQUE: Sagittal axial and coronal sequences through the abdomen and pelvis following 1.5 L of oral recent contrast and with and without IV contrast. The patient received 6.5 mL intravenous Gadavist contrast. FINDINGS: The stomach is well-distended and normal appearing. The small bowel is normal appearing. No dilatation, stricture, wall thickening or wall enhancement is seen. The large bowel is normal appearing. No dilatation, wall thickening, stricture or wall enhancement is seen. The appendix is normal appearing. No fistula, ascites or increased vascularity adjacent to the bowel is seen. The lung bases are clear. The liver and gallbladder are normal. There is no biliary duct dilatation. The spleen is normal. The pancreas is normal. The adrenal glands and kidneys are normal. The bladder is normal. There is an IUD in the uterus. The uterus and ovaries are otherwise unremarkable. No hernia is seen. No adenopathy is seen. Vascular structures are unremarkable. Bony structures are unremarkable. MR/MR abdomen wo/w con IMPRESSION: Unremarkable enterography exam of the abdomen and pelvis.
== END 2020-05-27 09:01 | disposition home or self-care (01) ==
LOC: HO.MRI 09:00
PROVIDERS: Visit Provider Internal Medicine Gastroenterology
DX: R10.10 Upper abdominal pain, unspecified (principal); R11.2 Nausea with vomiting, unspecified; R19.7 Diarrhea, unspecified
CPT/HCPCS: 72197; 74183; A9585

== ENCOUNTER 2020-05-29 12:34 | Outpatient (REF) | payer OTHER, SELFPAY ==
[2020-05-29 13:50] LABS: Basophils Absolute Auto 0.1 X10*3/uL (0.0-0.2); Basophils Percent Auto 1.2 % (0-2); Eosinophils Absolute Auto 0.2 X10*3/uL (0.0-0.4); Eosinophils Percent Auto 3.4 % (0-4); Hematocrit 38.3 % (37-47); Hemoglobin 12.9 g/dl (12.0-16.0); Imm Gran Abs Auto 0.02 X10*3/uL (0.00-0.03); Imm Gran Pct Auto 0.3 % (0.0-0.4); Lymphocytes Absolute Auto 2.2 X10*3/uL (1.2-4.9); Lymphocytes Percent Auto 34.4 % (20-40); MANUAL DIFF FLAG NO; Mean Corpuscular HGB Conc 33.7 g/dl (31.0-35.0); Mean Corpuscular Hemoglobin 29.6 pg (27.0-33.0); Mean Corpuscular Volume 87.8 fL (80-98); Mean Platelet Volume 10.3 fL (9.4-12.3); Monocytes Absolute Auto 0.4 X10*3/uL (0.1-1.2); Monocytes Percent Auto 5.9 % (2-11); Neutrophils Absolute Auto 3.6 X10*3/uL (2.0-8.3); Neutrophils Percent Auto 54.8 % (45-73); Platelet Count 455 X10*3/uL (160-400); Red Blood Count 4.36 X10*6/uL (4.20-5.50); White Blood Count 6.5 X10*3/uL (4.8-10.8)
[2020-05-29 14:14] LABS: Alanine Aminotransferase 20 U/L (0-31); Albumin Level 4.6 g/dL (3.5-5.0); Alkaline Phosphatase 49 U/L (39-117); Anion Gap 14 (12-20); Aspartate Amino Transferase 14 U/L (5-31); Bilirubin Total 0.4 mg/dL (0.0-1.0); Blood Urea Nitrogen 15 mg/dL (9-16); C Reactive Protein 0.19 mg/dL (< or = 0.50); Calcium 9.5 mg/dL (8.4-10.2); Carbon Dioxide 24 mmol/L (22-29); Chloride 105 mmol/L (96-108); Estimated Glomerular Filt Rate > 60; Glucose Random 106 mg/dL (60-115); Potassium 4.2 mmol/L (3.3-5.1); Sodium 139 mmol/L (135-145); Total Protein 7.1 g/dL (6.5-8.0); Troponin-I High Sensitivity < 3.5 ng/L (<3.5-17.0)
== END 2020-05-29 12:35 | disposition home or self-care (01) ==
LOC: HO.HMGCLDS 12:34
PROVIDERS: Nurse Practitioner Family; PCP Internal Medicine; Visit Provider Internal Medicine
DX: K21.9 Gastro-esophageal reflux disease without esophagitis (principal); R10.13 Epigastric pain; R19.7 Diarrhea, unspecified; R11.2 Nausea with vomiting, unspecified
CPT/HCPCS: 36415; 80053; 84484; 84520; 85025; 86140

== ENCOUNTER 2020-05-30 | Outpatient (REF) | payer OTHER, SELFPAY ==
[2020-06-07 01:52] LABS: Calprotectin, Fecal 171 mcg/g
== END 2020-05-30 00:01 | disposition home or self-care (01) ==
LOC: HO.HMGCLNP
PROVIDERS: Visit Provider Internal Medicine Gastroenterology
DX: K21.9 Gastro-esophageal reflux disease without esophagitis (principal); R11.2 Nausea with vomiting, unspecified; R19.7 Diarrhea, unspecified
CPT/HCPCS: 83993

== ENCOUNTER 2020-06-04 07:29 | Day surgery (SDC) | payer OTHER, SELFPAY ==
--- NOTE | 2020-06-03 09:21 | HO.ANESPROP2 ---
Documented by User: Olivia Luz Elena 06/03/20 09:22 HPI - Anesthesia Eval Consult details Narrative: 24yo F for Colonoscopy PMFSH Active Problems Active Problems: All Active Problems (Updated 05/29/20 @ 12:31 by Coco Ludwig NP) Epigastric pain (Acute) Diarrhea (Acute) Diarrhea (Acute) Nausea & vomiting (Acute) Body aches (Acute) Nausea (Acute) Acute sinusitis (Acute) Encounter for screening laboratory testing for COVID-19 virus (Acute) Difficulty sleeping (Acute) Shoulder pain, left (Acute) Shoulder injury (Acute) Itchy eyes (Acute) Environmental allergies (Acute) Nausea and vomiting (Acute) Ovarian cyst (Acute) Chronic constipation (Acute) GERD (gastroesophageal reflux disease) (Acute) Dyspepsia (Acute) Upper abdominal pain (Acute) ADHD (Acute) Past Medical History Medical History ADHD Chronic constipation Difficulty sleeping Dyspepsia Environmental allergies Gastritis GERD (gastroesophageal reflux disease) Insomnia Itchy eyes Nausea and vomiting Ovarian cyst Seasonal allergies Shoulder injury Shoulder pain, left Sprain of left ankle Tobacco use Upper abdominal pain Family History Family History Father History of diabetes mellitus Mother No problems noted. 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 Meds Allergies Allergy/AdvReac Type Severity Reaction Status Date / Time erythromycin base Allergy Unknown UNKNOWN Verified 05/29/20 13:15 [ERYTHROMYCIN BASE] escitalopram [From LEXAPRO] AdvReac Unknown NAUSEA Verified 05/29/20 13:15 seasonal allergies Allergy Unknown Unknown Uncoded 05/29/20 13:15 Home Medications Medication Instructions Recorded Confirmed Last Taken Type loratadine 10 mg tablet 10 mg PO DAILY 12/25/19 05/30/20 Unknown History omeprazole magnesium 20 mg 20 mg PO BID 02/16/20 05/30/20 Unknown History tablet,delayed release sucralfate 1 gram tablet 1 g PO ONCE tab 03/28/20 05/30/20 Unknown History trazodone 50 mg tablet 50 mg PO BEDTIME PRN tab 05/09/20 05/30/20 Unknown History Exam Exam Date and Time: June 03, 2020920 Assessment and Plan Assessment Anesthesia Assessment: Chart Reviewed Documented by User: Corin Titus 06/04/20 08:08 [facility] Past Medical History Medical History ADHD Chronic constipation Difficulty sleeping Dyspepsia Environmental allergies Gastritis GERD (gastroesophageal reflux disease) Insomnia Itchy eyes Nausea and vomiting Ovarian cyst Seasonal allergies Shoulder injury Shoulder pain, left Sprain of left ankle Tobacco use Upper abdominal pain Family History Family History Father History of diabetes mellitus Mother No problems noted. 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 Meds Allergies Allergy/AdvReac Type Severity Reaction Status Date / Time erythromycin base Allergy Unknown UNKNOWN Verified 05/29/20 13:15 [ERYTHROMYCIN BASE] escitalopram [From LEXAPRO] AdvReac Unknown NAUSEA Verified 05/29/20 13:15 seasonal allergies Allergy Unknown Unknown Uncoded 05/29/20 13:15 Home Medications Medication Instructions Recorded Confirmed Last Taken Type loratadine 10 mg tablet 10 mg PO DAILY 12/25/19 05/30/20 Unknown History omeprazole magnesium 20 mg 20 mg PO BID 02/16/20 05/30/20 Unknown History tablet,delayed release sucralfate 1 gram tablet 1 g PO ONCE tab 03/28/20 05/30/20 Unknown History trazodone 50 mg tablet 50 mg PO BEDTIME PRN tab 05/09/20 05/30/20 Unknown History Exam Airway Mallampati Class: II TM Dist: >3cm Neck ROM: Full Assessment and Plan Assessment Anesthesia Assessment: Anesthesia Plan Discussed Final Anesthetic Review NPO: Yes Final Preanesthetic Review: No Changes in Pt Med Stat, Meds/Allgs Chart Reviewed, Consent Obtained/Reviewed and Anes Risks/Benef Reviewed Patient Risk: Low Procedure Risk: Low Assessment/Block/Sedation in SS: Assess/Block/Sedation-SS Anesthetic Plan Anesthetic Plan: MAC: Disposition: Standard PACU
[2020-06-04 07:52] VITALS: BP 110/74; PULSE 89; RESP 16; TEMP 37; O2SAT 100; BMI 22.9
[2020-06-04] MEDS: Lactated Ringers 1,000 ML 100 ML IVCONT (08:00)
[2020-06-04 08:02] LABS: UPreg QC Valid YES; Urine Pregnancy NEGATIVE (NEGATIVE)
--- NOTE | 2020-06-04 08:41 | P.OP_ITS ---
Operative Note Operative Note Date of Service: 06/04/20 Narrative: Pre-op diagnosis: Abdominal pain nausea vomiting and diarrhea Post-op diagnosis: other (Gastritis, normal colonoscopy, hemorrhoids) Procedure: FLEXIBLE TRANSORAL UPPER GASTROINTESTINAL ENDOSCOPY WITH BIOPSIES AND COLONOSCOPY TILL CECUM WITH BIOPSIES UPPER ENDOSCOPY Consent: Indications for the procedure and potential complications of bleeding, perforation, reaction to medications and missed diagnosis were discussed with the patient and informed consent was obtained. Instrument: Olympus GIF H 190 mid size upper endoscope Monitoring: Vital signs and clinical assessment, continuous EKG monitoring, Pulse oximetry, Carbon Dioxide monitoring and blood pressure monitoring were done throughout the procedure. Procedure: The patient was placed in the left lateral decubitis position and pre-procedure medications were administered and a bite block was placed. The endoscope was inserted into the mouth and advanced under direct vision to the third part of duodenum. A careful inspection was made as the upper endoscope was withdrawn including a retroflexed examination of the proximal stomach; Findings and interventions are described below. Findings: Larynx: Normal Esophagus: GE junction at 35 cms, small hiatal hernia 35 to 36 cms. No esophagitis or Lovell's. Stomach: Moderate diffuse gastric erythema with submucosal hemorrhages. Biopsies were obtained. Grade 2 flap valve on retroflexed examination of the cardia. Duodenum: Normal bulb and descending duodenum. Biopsies were obtained from 3rd part of duodenum to check for celiac sprue. Intervention: Biopsies as noted above COLONOSCOPY PROCEDURE NOTE Consent: Indications for the procedure and potential complications of bleeding, perforation, reaction to medications and missed diagnosis were discussed with the patient and informed consent was obtained. Instrument: Olympus PCF H 190 L variable stiffness pediatric colonoscope Monitoring: Vital signs and clinical assessment, intermittent blood pressure monitoring, continuous EKG monitoring, Pulse oximetry and Carbon Dioxide monitoring were done throughout the procedure. Colon withdrawl time was 12 minutes. Procedure: The patient was placed in the left lateral decubitis position and pre-procedure medications were administered. After a digital rectal examination of the ano-rectum, the video colonoscope was inserted into the rectum and advanced through the colon to the cecum. The colonoscope was slowly withdrawn in a retrograde panoramic fashion and the colon mucosa was carefully examined including a retroflexed view of the rectum. Findings and interventions are described below. Procedure Difficulty: Without difficulty Findings: Terminal Ileum: Distal 7-8 cms was examined and appeared normal Cecum: Normal Ascending Colon: Normal Transverse Colon: Normal Descending Colon: Normal Sigmoid Colon: Normal Rectum: Normal Ano-rectum: Moderate internal hemorrhoids Colon preparation: Excellent Impression and Post Procedure Diagnosis: Endoscopy Findings: STOMACH: Gastritis DUODENUM: Normal, biopsies were obtained from 3rd part of the duodenum to check for celiac sprue Colonoscopy Findings: Normal colonoscopy - no polyps were detected. Random biopsies were obtained from the right and left colon to check for microscopic colitis Plan: Await pathology results Patient has an appointment on 06/20/20 in the GI [facility] with Eriberto Pablo M.D.. Repeat Colonoscopy interval based on path results - in 20 years if random biopsies are normal Above findings were reviewed with the patient and handout on Gastritis was given in the discharge area Surgeon: Eriberto Pablo MD Anesthesia: MAC (Khadijah Taylor CRNA) Subway Train Operator: Kylah Mcneill Estimated blood loss (mL): 0 Pathology: other (A. SMALL BOWEL BXS, R/O CELIAC B. GASTRIC ANTRUM, R/O H. PYLORI C. RANDOM RIGHT COLON BXS, R/O MICROSCOPIC COLITIS D- RANDOM LEFT COLON BXS. R/O MICROSCOPIC COLITIS) Condition: stable Disposition: PACU
--- NOTE | 2020-06-04 08:41 | MHC.SHP ---
Pre-Procedural Eval Section A The patient is an INPATIENT: No Changes since office visit: Yes Patient answered all questions; No Cold of Flu in the past 2 weeks, No New Medical Problems and No Changes in Medication The History & Physical has been completed within 30 days and I have reviewed it.: Yes Section B Chief Complaint: diarrhea,abdominal pain Allergies: Allergies Allergy/AdvReac Type Severity Reaction Status Date / Time erythromycin base Allergy Unknown UNKNOWN Verified 05/29/20 13:15 [ERYTHROMYCIN BASE] escitalopram [From LEXAPRO] AdvReac Unknown NAUSEA Verified 05/29/20 13:15 seasonal allergies Allergy Unknown Unknown Uncoded 05/29/20 13:15 Review of Systems Sugical H&P ROS: Negative: Constitution, Cardiovascular and Respiratory and Yes, Specify: Gastrointestinal ([place] and vomiting) Exam Surgical H&P Exam: Normal: Heart, Normal: Lungs, Normal: Extremities and Normal: Abdomen Plan Diagnosis/Plan: Change (add EGD for recurrent nausea and vomiting) I have reviewed the history and physical and performed a pertinent physical examination on my patient. No changes have occurred unless specified.
[2020-06-04 09:36] VITALS: BP 84/49; PULSE 78; RESP 16; TEMP 36.6; O2SAT 94
[2020-06-04 09:51] VITALS: BP 110/65; PULSE 69; RESP 17; TEMP 36.6; O2SAT 100
== END 2020-06-04 10:30 | disposition home or self-care (01) ==
PROVIDERS: Nurse Practitioner; PCP Internal Medicine; Visit Provider Internal Medicine Gastroenterology
PROC: 0DJD8ZZ Inspection of Lower Intestinal Tract, Via Natural or Artificial Opening Endoscopic (ICD-10-PCS; CPT 45378; principal; 2020-06-04 08:30)
DX: R19.7 Diarrhea, unspecified (principal); K64.8 Other hemorrhoids; K59.09 Other constipation; K29.50 Unspecified chronic gastritis without bleeding; K44.9 Diaphragmatic hernia without obstruction or gangrene; K21.9 Gastro-esophageal reflux disease without esophagitis; F17.290 Nicotine dependence, other tobacco product, uncomplicated; Z79.899 Other long term (current) drug therapy; Z88.8 Allergy status to other drugs, medicaments and biological substances
CPT/HCPCS: 45380; 43239; 81025; 88305; 88342; J3010

== ENCOUNTER → 2020-07-08 14:56 | Outpatient (BNVA) | payer OTHER, SELFPAY | PROVIDERS: PCP Internal Medicine; Visit Provider Internal Medicine Gastroenterology ==

== ENCOUNTER 2020-07-23 12:36 | Emergency (ER) | payer OTHER, SELFPAY ==
--- NOTE | ~2020-07-23 | US_ITS ---
EXAMINATION: US VENOUS ULTRASOUND WITH DOPPLER LOWER EXTREMITY, RIGHT CLINICAL INFORMATION: Right calf pain and positive Homans sign. COMPARISON: None TECHNIQUE: Ultrasound of the deep veins is performed from the hip to the calf with compression sonography and color and pulse Doppler assessment. Spectral analysis with color-flow imaging is performed. FINDINGS: There is normal venous compression and respiratory variation and augmented flow. The visualized common femoral vein, superficial femoral vein, profunda femoral vein, popliteal vein, and the trifurcation region shows no evidence of deep venous thrombosis. There is no significant popliteal fossa cyst. If the patient's symptoms persist, followup ultrasound in 5 days 7 days might be of value to exclude proximal propagation from a non-visualized calf vein. US/US venous duplex LE RT IMPRESSION: No DVT demonstrated in the right lower extremity.
[2020-07-23 12:54] VITALS: BP 102/64; PULSE 89; RESP 18; TEMP 37.2; O2SAT 98; BMI 22.8
--- NOTE | 2020-07-23 14:26 | ED_ITS ---
HPI - Extremity Problem General Chief complaint: Extremity Problem Stated complaint: R LEG SWELLING Time Seen by Provider: 07/23/20 13:57 Source: patient Mode of arrival: ambulatory History of Present Illness HPI Narrative: 24-year-old female with a past medical history of ADHD, gastritis, GERD, insomnia, tobacco use, presenting to the ED complaining of right posterior knee/calf pain radiating to the thigh x5 days. Admits area feels swollen. Reports pain with leg movement and associated numbness/tingling. Patient vapes tobacco, denies cigarette use. Denies oral OCPs or recent travel/long car rides. Denies known injury/trauma or falls/heavy lifting, weakness, CP/SOB, history of clots MD Complaint: extremity pain and extremity swelling Related Data Home Medications Medication Instructions Recorded Confirmed sucralfate 1 gram tablet 1 g PO ONCE tab 03/28/20 07/08/20 trazodone 50 mg tablet 50 mg PO BEDTIME PRN tab 05/09/20 07/08/20 Previous Rx's Medication Instructions Recorded polyethylene glycol 3350 17 17 g PO BID 30 Days #1020 g 02/01/20 gram/dose oral powder acetaminophen [Tylenol] 325 mg PO QID PRN #28 cap 04/10/20 ondansetron 4 mg disintegrating 4 mg PO Q6H PRN #30 tab 06/04/20 tablet loratadine 10 mg tablet 10 mg PO DAILY #90 tab 06/17/20 ondansetron 8 mg disintegrating 8 mg PO Q8H PRN 30 Days #60 tab 07/08/20 tablet pantoprazole 40 mg tablet,delayed 40 mg PO BID 30 Days #60 tab 07/08/20 release acetaminophen [Tylenol Extra 500 mg PO Q6H PRN #20 tab 07/23/20 Strength] cyclobenzaprine 5 mg PO Q8H PRN 5 Days #14 tab 07/23/20 lidocaine [Lidoderm] 1 patch TOPICAL DAILY PRN #30 ea 07/23/20 MDD remove after 12 hours naproxen 500 mg PO BID PRN 10 Days #20 tab 07/23/20 Allergies Allergy/AdvReac Type Severity Reaction Status Date / Time erythromycin base Allergy Unknown UNKNOWN Verified 07/23/20 12:59 [ERYTHROMYCIN BASE] escitalopram [From LEXAPRO] AdvReac Unknown NAUSEA Verified 07/23/20 12:59 seasonal allergies Allergy Unknown Unknown Uncoded 05/29/20 13:15 Review of Systems Review of Systems: Constitutional: No Fever, No Chills, No Fatigue, No Malaise Cardiovascular: No Chest Pain, No SOB, No Edema Respiratory: No Cough, No Dyspnea Gastrointestinal: No Nausea, No Vomiting, No Abdominal pain Genitourinary: No Dysuria, No Urinary Frequency, No Hematuria, No Urinary Incontinence, No Urinary Flow Changes Musculoskeletal: +joint pain, No Myalgias, + Joint Swelling Skin: No Skin Lesions, No rash Neuro: No Weakness, + Numbness, + Paresthesias Yes all other systems are reviewed and are negative [facility] Past Medical History Attestation statement: The following information was validated with the patient. Medical History (Updated 07/23/20 @ 16:55 by JES Crowe) ADHD Chronic constipation Difficulty sleeping Dyspepsia Environmental allergies Gastritis GERD (gastroesophageal reflux disease) Insomnia Itchy eyes Nausea and vomiting Ovarian cyst Seasonal allergies Shoulder injury Shoulder pain, left Sprain of left ankle Tobacco use Upper abdominal pain Surgical History (Updated 07/08/20 @ 14:58 by ANTONIO Ma) H/O colonoscopy Hx of endoscopy Hx of wisdom tooth extraction Family History Family History Father History of diabetes mellitus Mother No problems noted. 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 Physical Exam Vital Signs: Vital Signs: Last Vital Signs Temp 98.9 F 07/23/20 12:54 Pulse 89 07/23/20 12:54 Resp 18 07/23/20 12:54 BP 102/64 07/23/20 12:54 Pulse Ox 98 07/23/20 12:54 Body Mass Index 22.8 Const: General: cooperative and no acute distress Orientation/consciousness: patient oriented x3 Limitations: no limitations HENMT: Head: Yes normal to inspection Ears: hearing grossly normal bilaterally General nose exam: Normal external nose present Face and sinus: Yes normal facial exam Eyes: General: appearance normal, both eyes and all related structures EOM: EOMs intact bilaterally Neck: Neck: Yes normal visual inspection and Yes no meningeal signs Resp: Effort & Inspection: normal respiratory effort, no nasal flaring and not tachypneic Cardio: Rate: regular rate Peripheral pulses: dorsalis pedis present GI: Inspection: Yes normal to inspection Back/Spine/Pelvis: Other: No midline thoracic/lumbar spinous tenderness or step-offs Skin: Rashes: no rashes Wounds: no wounds Neuro: General: patient oriented x3, tone normal and no meningeal signs Gait exam (Neuro): Normal gait present Motor exam (neuro): 5/5 motor strength present throughout Extrem: Other: No appreciable RLE edema or swelling. +Daryn sign to RLE. Decreased flexion of right knee secondary to pain +ttp behind right knee & to lateral right thigh. NV intact General: Yes normal to inspection, Yes no pedal edema and Yes calf tenderness (right) Course Course Course Narrative: US venous duplex LE RT IMPRESSION: No DVT demonstrated in the right lower extremity. >> results discussed with patient including worrisome signs and symptoms and strict return precautions. She verbalized understanding feel safe for discharge home MDM - Extremity (Nontraumatic) MDM Narrative Medical decision making narrative: 24-year-old female with a past medical history of ADHD, gastritis, GERD, insomnia, tobacco use, presenting to the ED complaining of right posterior knee/calf pain radiating to the thigh x5 days. On exam vital signs stable, NAD, well appearing, physical exam as above. No appreciable LE edema, + MSK tenderness to RLE and positive Homans sign. Concern for DVT vs MSK pain Plan: Venous duplex ultrasound Discharge Plan Discharge Clinical Impression: Leg pain, right Patient Disposition: Home, Self-Care Instructions: Musculoskeletal Pain (ED) Additional Instructions: Your ultrasound was negative for any blood clots Your pain is likely musculoskeletal Flexeril is a muscle relaxer, take at night as it makes you drowsy, do not drive, drink alcohol, or operate machinery while taking it Naproxen as an anti-inflammatory / pain medication, take with food Lidoderm patches are numbing patches, apply to painful area In addition take Tylenol at home If symptoms persist or worsen, pain becomes unbearable, you developed urinary retention or incontinence, or weakness return to the ED You should wear compression stockings, elevate Prescriptions: New acetaminophen [Tylenol Extra Strength] 500 mg tablet 500 mg PO Q6H PRN (Reason: pain or fever) Qty: 20 RF: 0 lidocaine [Lidoderm] 5 % adhesive patch,medicated 1 patch topical DAILY MDD remove after 12 hours PRN (Reason: pain) Qty: 30 RF: 0 naproxen 500 mg tablet 500 mg PO BID PRN (Reason: pain) 10 Days Qty: 20 RF: 0 cyclobenzaprine 5 mg tablet 5 mg PO Q8H PRN (Reason: pain (scale score 7-10)) 5 Days Qty: 14 RF: 0 No Action ondansetron 4 mg tablet,disintegrating 4 mg PO Q6H PRN (Reason: nausea and vomiting) Qty: 30 RF: 1 loratadine 10 mg tablet 10 mg PO DAILY Qty: 90 RF: 0 acetaminophen [Tylenol] 325 mg capsule 325 mg PO QID PRN (Reason: pain) Qty: 28 RF: 0 sucralfate 1 gram tablet 1 g PO ONCE RF: 0 polyethylene glycol 3350 [Miralax] 17 gram/dose powder 17 g PO BID 30 Days Qty: 1020 RF: 0 trazodone 50 mg tablet 50 mg PO BEDTIME PRN (Reason: sleep) RF: 0 pantoprazole 40 mg tablet,delayed release (DR/EC) 40 mg PO BID 30 Days Qty: 60 RF: 2 ondansetron 8 mg tablet,disintegrating 8 mg PO Q8H PRN (Reason: nausea and vomiting) 30 Days Qty: 60 RF: 2 Referrals: Gary White MD [Primary Care Provider] - 5 days Stand Alone Forms: Work/School Release
[2020-07-23] MEDS: Acetaminophen 325 MG TABLET 650 MG PO (14:39)
[2020-07-23] MEDS: Cyclobenzaprine HCl 5 MG TABLET PO (14:40)
--- NOTE | 2020-07-23 14:40 | PC.NURSE ---
Pt medicated for pain and given a muscle relaxer. Awaiting ultrasound at this time.
== END 2020-07-23 17:12 | disposition home or self-care (01) ==
PROVIDERS: Emergency Provider Emergency Medicine; PCP Internal Medicine
DX: M79.604 Pain in right leg (principal); R22.41 Localized swelling, mass and lump, right lower limb; F17.290 Nicotine dependence, other tobacco product, uncomplicated
CPT/HCPCS: 93971; 99283; 99284

== ENCOUNTER 2020-08-03 08:01 | Emergency (ER) | payer OTHER, SELFPAY ==
[2020-08-03 08:15] VITALS: BP 102/63; PULSE 81; RESP 16; TEMP 36.8; BMI 22.6
--- NOTE | 2020-08-03 08:44 | ED_ITS ---
HPI - General Adult General Chief complaint: General Medical Stated complaint: Migraine Time Seen by Provider: 08/03/20 08:20 Related Data Home Medications Medication Instructions Recorded Confirmed sucralfate 1 gram tablet 1 g PO ONCE tab 03/28/20 07/08/20 trazodone 50 mg tablet 50 mg PO BEDTIME PRN tab 05/09/20 07/08/20 Previous Rx's Medication Instructions Recorded polyethylene glycol 3350 17 17 g PO BID 30 Days #1020 g 02/01/20 gram/dose oral powder acetaminophen [Tylenol] 325 mg PO QID PRN #28 cap 04/10/20 ondansetron 4 mg disintegrating 4 mg PO Q6H PRN #30 tab 06/04/20 tablet loratadine 10 mg tablet 10 mg PO DAILY #90 tab 06/17/20 ondansetron 8 mg disintegrating 8 mg PO Q8H PRN 30 Days #60 tab 07/08/20 tablet pantoprazole 40 mg tablet,delayed 40 mg PO BID 30 Days #60 tab 07/08/20 release acetaminophen [Tylenol Extra 500 mg PO Q6H PRN #20 tab 07/23/20 Strength] cyclobenzaprine 5 mg PO Q8H PRN 5 Days #14 tab 07/23/20 lidocaine [Lidoderm] 1 patch TOPICAL DAILY PRN #30 ea 07/23/20 MDD remove after 12 hours naproxen 500 mg PO BID PRN 10 Days #20 tab 07/23/20 Allergies Allergy/AdvReac Type Severity Reaction Status Date / Time erythromycin base Allergy Unknown UNKNOWN Verified 07/23/20 12:59 [ERYTHROMYCIN BASE] escitalopram [From LEXAPRO] AdvReac Unknown NAUSEA Verified 07/23/20 12:59 seasonal allergies Allergy Unknown Unknown Uncoded 05/29/20 13:15 [facility] Past Medical History Medical History (Updated 07/24/20 @ 00:01 by Juanito Witt) ADHD Chronic constipation Difficulty sleeping Dyspepsia Environmental allergies Gastritis GERD (gastroesophageal reflux disease) Insomnia Itchy eyes Nausea and vomiting Ovarian cyst Seasonal allergies Shoulder injury Shoulder pain, left Sprain of left ankle Tobacco use Upper abdominal pain Surgical History (Updated 07/08/20 @ 14:58 by ANTONIO Ma) H/O colonoscopy Hx of endoscopy Hx of wisdom tooth extraction Family History Family History Father History of diabetes mellitus Mother No problems noted. 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 Physical Exam Vital Signs: Vital Signs: Last Vital Signs Temp 98.3 F 08/03/20 08:15 Pulse 81 08/03/20 08:15 Resp 16 08/03/20 08:15 BP 102/63 08/03/20 08:15 Body Mass Index 22.6 Discharge Plan Discharge Prescriptions: No Action ondansetron 4 mg tablet,disintegrating 4 mg PO Q6H PRN (Reason: nausea and vomiting) Qty: 30 RF: 1 loratadine 10 mg tablet 10 mg PO DAILY Qty: 90 RF: 0 acetaminophen [Tylenol] 325 mg capsule 325 mg PO QID PRN (Reason: pain) Qty: 28 RF: 0 acetaminophen [Tylenol Extra Strength] 500 mg tablet 500 mg PO Q6H PRN (Reason: pain or fever) Qty: 20 RF: 0 lidocaine [Lidoderm] 5 % adhesive patch,medicated 1 patch topical DAILY MDD remove after 12 hours PRN (Reason: pain) Qty: 30 RF: 0 naproxen 500 mg tablet 500 mg PO BID PRN (Reason: pain) 10 Days Qty: 20 RF: 0 cyclobenzaprine 5 mg tablet 5 mg PO Q8H PRN (Reason: pain (scale score 7-10)) 5 Days Qty: 14 RF: 0 sucralfate 1 gram tablet 1 g PO ONCE RF: 0 polyethylene glycol 3350 [Miralax] 17 gram/dose powder 17 g PO BID 30 Days Qty: 1020 RF: 0 trazodone 50 mg tablet 50 mg PO BEDTIME PRN (Reason: sleep) RF: 0 pantoprazole 40 mg tablet,delayed release (DR/EC) 40 mg PO BID 30 Days Qty: 60 RF: 2 ondansetron 8 mg tablet,disintegrating 8 mg PO Q8H PRN (Reason: nausea and vomiting) 30 Days Qty: 60 RF: 2
--- NOTE | 2020-08-03 08:48 | ED_ITS ---
HPI - Headache General Chief Complaint: General Medical Stated Complaint: Migraine Time Seen by Provider: 08/03/20 08:20 Source: patient Mode of arrival: ambulatory Limitations: no limitations History of Present Illness MD elicited complaint: headache and migraine Pertinent past history: migraines Onset (ago): day(s) (2 days worse today) Onset description: gradually Location: frontal Severity: moderate Quality & Timing: throbbing, constant, progressively worsening and similar to previous headaches Exacerbating factors: exertion, sitting/standing, light, noise and rest Relieving factors: nothing Context: other (Cannot recall) Associated symptoms: photophobia, sensitivity to sound and other (Blurry vision) Treatments prior to arrival: other (Has been taking [id number] Motrin Tylenol no symptomatic relief) Related Data Home Medications Medication Instructions Recorded Confirmed sucralfate 1 gram tablet 1 g PO ONCE tab 03/28/20 07/08/20 trazodone 50 mg tablet 50 mg PO BEDTIME PRN tab 05/09/20 07/08/20 Previous Rx's Medication Instructions Recorded polyethylene glycol 3350 17 17 g PO BID 30 Days #1020 g 02/01/20 gram/dose oral powder acetaminophen [Tylenol] 325 mg PO QID PRN #28 cap 04/10/20 ondansetron 4 mg disintegrating 4 mg PO Q6H PRN #30 tab 06/04/20 tablet loratadine 10 mg tablet 10 mg PO DAILY #90 tab 06/17/20 ondansetron 8 mg disintegrating 8 mg PO Q8H PRN 30 Days #60 tab 07/08/20 tablet pantoprazole 40 mg tablet,delayed 40 mg PO BID 30 Days #60 tab 07/08/20 release acetaminophen [Tylenol Extra 500 mg PO Q6H PRN #20 tab 07/23/20 Strength] cyclobenzaprine 5 mg PO Q8H PRN 5 Days #14 tab 07/23/20 lidocaine [Lidoderm] 1 patch TOPICAL DAILY PRN #30 ea 07/23/20 MDD remove after 12 hours naproxen 500 mg PO BID PRN 10 Days #20 tab 07/23/20 Allergies Allergy/AdvReac Type Severity Reaction Status Date / Time erythromycin base Allergy Unknown UNKNOWN Verified 07/23/20 12:59 [ERYTHROMYCIN BASE] escitalopram [From LEXAPRO] AdvReac Unknown NAUSEA Verified 07/23/20 12:59 seasonal allergies Allergy Unknown Unknown Uncoded 05/29/20 13:15 Review of Systems Review of Systems: Constitutional : No changes in activity, No lethargy, No recent prior head injury, No agitation, No increased fussiness ENT/Mouth : No Ear Pain, No Nasal discharge/drainage Eyes: No Eye Pain, No Swelling, No Redness, No Foreign Body, No Vision Changes Cardiovascular : No Chest Pain, No SOB Respiratory : No Cough Gastrointestinal : No Nausea, No Vomiting, No abdominal Pain Genitourinary : No Dysuria, No Urinary Frequency, No Urinary Incontinence, No Urgency, No Flank Pain Musculoskeletal : No joint pain, No neck stiffness, No back pain/injury Skin : No lacerations Neuro : No unsteady gait, No Paresthesias, No Loss of Consciousness, No altered mental status, No dizziness, + Headache Denies past medical history of HIV, recent trauma, coagulopathy, recent spinal/ epidural procedure, new medication, URI symptoms, close contacts with similar symptoms, tick bite, or known CO2 exposure. Yes all other systems are reviewed and are negative PMFSH Past Medical History Attestation statement: The following information was validated with the patient. Medical History ADHD Chronic constipation Difficulty sleeping Dyspepsia Environmental allergies Gastritis GERD (gastroesophageal reflux disease) Insomnia Itchy eyes Nausea and vomiting Ovarian cyst Seasonal allergies Shoulder injury Shoulder pain, left Sprain of left ankle Tobacco use Upper abdominal pain Surgical History H/O colonoscopy Hx of endoscopy Hx of wisdom tooth extraction Family History Family History Father History of diabetes mellitus Mother No problems noted. 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 Blood pressure normal. Heart rate normal. Respiration rate normal. Temperature normal. Oxygen saturation normal. Appearance: Alert. Oriented X3. No acute distress. Head: Normal external exam. Normocephalic. Atraumatic. Able to rotate head bilaterally. Eyes: PERRLA. EOMI. No nystagmus noted. Conjunctiva and sclera normal. Eyelids normal. Corneal reflex normal. ENT: EAC normal. TM's Normal. Hearing normal. Pharynx normal. Uvula midline. tongue midline. Moist mucous membranes. No trismus noted. No drooling noted. No muffled voice noted. Neck: Normal inspection. Neck supple. FROM. No adenopathy. Thyroid Normal. No meningeal signs. No neck mass noted. CVS: Normal heart rate and rhythm. Heart sound normal. No murmurs noted. Pulses normal throughout. Respiratory: No respiratory distress. Painless inspiration. Breath sounds normal. No wheezes/rales/rhonchi noted. Chest nontender. No accessory muscle usage noted or decreased air movement noted. Back: Full range of motion noted. Skin: Skin warm and dry. Normal skin color. Normal skin turgor. No rashes/lesions/lacerations noted. Extremities: Extremities exhibit normal range of motion. Extremities nontender. Able to shrug shoulders bilaterally and keep up against resistance. Neuro: Oriented X 3. No motor deficit. No sensory deficit. Reflexes normal. Moving all extremities. No focal motor deficits. Cranial nerves II-XI intact bilaterally. Facial strength normal. Normal cognition. Speech normal. Gait normal. Strength 5/5 throughout. No pronator drift. No tremor noted. No fasciculations noted. Muscle tone normal throughout. No asterixis noted. Ejusup-dc-pcwi test normal. Heel to nair test normal. Tandem gait normal. Does not sway with eyes open. Romberg test negative. Rapid alternating movement upper extremity normal. Rapid alternating movement lower extremity normal. Hand drop from overhead-Mrs. face. No rigidity noted. NIHSS score 0. Course Course Course Narrative: - Patient afebrile, resting comfortably in no distress. Non- toxic appearing. Patient denies any recent trauma/injury to head. Neurological exam shows no deficits. BP WNL. Patient ambulates without difficulty. Given the history, and physical - most likely diagnosis: Migraine JUDD. Therefore no imaging indicated at this time. Patient also had a CTA of her brain on 12/29/2019 which was negative for any acute processes. Will treat pain. Will d/c with migraine medicaiton and advised to follow - up with PCP. Patient demonstrated good understanding of signs and symptoms to return to ED for further testing should sx worsen. gradual onset JUDD with photo/phonophobia. Pt states classic of previous migraine HAs. SAH: unlikely given gradual onset and similar to previous episodes Intracranial bleed: unlikely given neg trauma, neg anticoagulation Meningitis: unlikely given pt afebrile, neg stiff neck, no immune compromise. Exam without signs of meningismus Temporal arteritis: Unlikely given Neg jaw claudication, no temporal tenderness or nodularity on exam. Cerebral venous thrombosis: unlikely given no h/o hypercoaguable state, no chronic head/neck infection. MDM - Headache Medical Records Attestation: I reviewed the patient's medical records. Lab Data Attestation: I reviewed the patient's lab results. Discharge Plan Discharge Clinical Impression: Migraine headache Instructions: Migraine Headache (ED) Prescriptions: No Action ondansetron 4 mg tablet,disintegrating 4 mg PO Q6H PRN (Reason: nausea and vomiting) Qty: 30 RF: 1 loratadine 10 mg tablet 10 mg PO DAILY Qty: 90 RF: 0 acetaminophen [Tylenol] 325 mg capsule 325 mg PO QID PRN (Reason: pain) Qty: 28 RF: 0 acetaminophen [Tylenol Extra Strength] 500 mg tablet 500 mg PO Q6H PRN (Reason: pain or fever) Qty: 20 RF: 0 lidocaine [Lidoderm] 5 % adhesive patch,medicated 1 patch topical DAILY MDD remove after 12 hours PRN (Reason: pain) Qty: 30 RF: 0 naproxen 500 mg tablet 500 mg PO BID PRN (Reason: pain) 10 Days Qty: 20 RF: 0 cyclobenzaprine 5 mg tablet 5 mg PO Q8H PRN (Reason: pain (scale score 7-10)) 5 Days Qty: 14 RF: 0 sucralfate 1 gram tablet 1 g PO ONCE RF: 0 polyethylene glycol 3350 [Miralax] 17 gram/dose powder 17 g PO BID 30 Days Qty: 1020 RF: 0 trazodone 50 mg tablet 50 mg PO BEDTIME PRN (Reason: sleep) RF: 0 pantoprazole 40 mg tablet,delayed release (DR/EC) 40 mg PO BID 30 Days Qty: 60 RF: 2 ondansetron 8 mg tablet,disintegrating 8 mg PO Q8H PRN (Reason: nausea and vomiting) 30 Days Qty: 60 RF: 2 Referrals: Gary White MD [Primary Care Provider] - 2 days Stand Alone Forms: Work/School Release Print Language: Nepali
[2020-08-03 08:54] LABS: MANUAL DIFF FLAG NO
[2020-08-03] MEDS: diphenhydrAMINE HCL 50 MG/ML VIAL IVPUSH (08:56)
[2020-08-03 08:57] LABS: Basophils Absolute Auto 0.1 X10*3/uL (0.0-0.2); Basophils Percent Auto 1.5 % (0-2); Eosinophils Absolute Auto 0.2 X10*3/uL (0.0-0.4); Eosinophils Percent Auto 3.8 % (0-4); Hematocrit 39.8 % (37-47); Hemoglobin 13.1 g/dl (12.0-16.0); Imm Gran Abs Auto 0.01 X10*3/uL (0.00-0.03); Imm Gran Pct Auto 0.2 % (0.0-0.4); Lymphocytes Absolute Auto 2.1 X10*3/uL (1.2-4.9); Lymphocytes Percent Auto 34.6 % (20-40); Mean Corpuscular HGB Conc 32.9 g/dl (31.0-35.0); Mean Corpuscular Volume 88.2 fL (80-98); Mean Platelet Volume 9.7 fL (9.4-12.3); Monocytes Absolute Auto 0.4 X10*3/uL (0.1-1.2); Monocytes Percent Auto 6.2 % (2-11); Neutrophils Absolute Auto 3.2 X10*3/uL (2.0-8.3); Neutrophils Percent Auto 53.7 % (45-73); Platelet Count 442 X10*3/uL (160-400); Red Blood Count 4.51 X10*6/uL (4.20-5.50); Red Cell Distribution Width 12.1 % (11.0-16.0)
[2020-08-03] MEDS: Metoclopramide HCl 10 MG/2 ML VIAL IVPUSH (08:59)
[2020-08-03] MEDS: Ketorolac Tromethamine 30 MG/ML VIAL IVPUSH (09:00)
[2020-08-03] MEDS: 0.9 % Sodium Chloride 1,000 ML 999 ML IVCONT (09:03)
[2020-08-03 09:04] LABS: INTERNATIONAL NORM RATIO 1.2 (0.9-1.1); Prothrombin Time 14.4 SEC (10.8-13.0)
[2020-08-03 09:24] LABS: Alanine Aminotransferase 21 U/L (0-31); Albumin Level 4.4 g/dL (3.5-5.0); Alkaline Phosphatase 48 U/L (39-117); Anion Gap 13 (12-20); Aspartate Amino Transferase 14 U/L (5-31); Bilirubin Total 0.7 mg/dL (0.0-1.0); Blood Urea Nitrogen 12 mg/dL (9-16); C Reactive Protein 0.25 mg/dL (< or = 0.50); Calcium 9.8 mg/dL (8.4-10.2); Carbon Dioxide 27 mmol/L (22-29); Chloride 106 mmol/L (96-108); Creatinine Clr Calc Pharmacy 103.1; Estimated Glomerular Filt Rate > 60; Glucose Random 85 mg/dL (60-115); Magnesium 1.9 mg/dL (1.6-2.6); Potassium 4.2 mmol/L (3.3-5.1); Sodium 142 mmol/L (135-145); Total Protein 6.8 g/dL (6.5-8.0)
[2020-08-03 09:28] LABS: COVID-19 Test Negative (Negative); IDNOW Serial# 9DD0AD1C
[2020-08-03 09:30] LABS: HCG Quantitative < 2 mIU/mL
[2020-08-03 09:45] LABS: Erythrocyte Sedimentation Rate 7 MM/HR (0-20)
[2020-08-03 09:52] VITALS: BP 95/59; PULSE 74; RESP 16; O2SAT 100
== END 2020-08-03 10:13 | disposition home or self-care (01) ==
PROVIDERS: Physician Assistant Medical; Emergency Provider Emergency Medicine Emergency Medical Services; PCP Internal Medicine
DX: G43.909 Migraine, unspecified, not intractable, without status migrainosus (principal); Z79.899 Other long term (current) drug therapy; Z20.822 Contact with and (suspected) exposure to COVID-19
CPT/HCPCS: 36415; 80053; 83735; 84702; 85025; 85610; 85652; 86140; 87635; 96365; 96375; 99284; J1100; J1200; J1885; J2765

== ENCOUNTER 2020-08-06 19:20 | Emergency (ER) | payer OTHER, SELFPAY ==
[2020-08-06 19:28] VITALS: BP 115/75; PULSE 88; RESP 16; TEMP 36.4; O2SAT 100; BMI 22.5
--- NOTE | 2020-08-06 21:56 | ED.HA ---
HPI - Headache General Chief Complaint: Headache Stated Complaint: migraine? Time Seen by Provider: 08/06/20 21:35 Source: patient Mode of arrival: ambulatory History of Present Illness HPI Narrative: This is a 25-year-old female without significant past medical history who presents with persistent headache and was last seen here in the ER on 08/03. She states that her headache had typical onset as last time as well as progression without new identified symptoms. Her symptoms are photosensitivity, sensitivity to sound but denies any nausea and endorses a positive family history of migraines and her mother. She was evaluated by Dr. alarcon after last ER visit and he prescribed [id number]-ppu-gpqyelk Excedrin Headache formula, patient states she has made an appointment with Dr. White, neurology, and her appointment is 08/09. Otherwise, she denies any fever, chills, nausea, vomiting, abdominal pain, urinary pain/burning/frequency. Related Data Home Medications Medication Instructions Recorded Confirmed sucralfate 1 gram tablet 1 g PO ONCE tab 03/28/20 07/08/20 trazodone 50 mg tablet 50 mg PO BEDTIME PRN tab 05/09/20 07/08/20 Previous Rx's Medication Instructions Recorded polyethylene glycol 3350 17 17 g PO BID 30 Days #1020 g 02/01/20 gram/dose oral powder acetaminophen [Tylenol] 325 mg PO QID PRN #28 cap 04/10/20 ondansetron 4 mg disintegrating 4 mg PO Q6H PRN #30 tab 06/04/20 tablet loratadine 10 mg tablet 10 mg PO DAILY #90 tab 06/17/20 ondansetron 8 mg disintegrating 8 mg PO Q8H PRN 30 Days #60 tab 07/08/20 tablet pantoprazole 40 mg tablet,delayed 40 mg PO BID 30 Days #60 tab 07/08/20 release acetaminophen [Tylenol Extra 500 mg PO Q6H PRN #20 tab 07/23/20 Strength] cyclobenzaprine 5 mg PO Q8H PRN 5 Days #14 tab 07/23/20 naproxen 500 mg PO BID PRN 10 Days #20 tab 07/23/20 metoclopramide HCl [Reglan] 10 mg PO Q6H PRN #15 tab 08/03/20 mvyrcoohtn-vkxwknnojdfoz-hcrdejin 1 cap PO Q8H PRN #15 cap 08/05/20 50 mg-300 mg-40 mg capsule Allergies Allergy/AdvReac Type Severity Reaction Status Date / Time erythromycin base Allergy Unknown UNKNOWN Verified 08/05/20 14:01 [ERYTHROMYCIN BASE] escitalopram [From LEXAPRO] AdvReac Unknown NAUSEA Verified 08/05/20 14:01 seasonal allergies Allergy Unknown Unknown Uncoded 08/05/20 14:01 Review of Systems Review of Systems: Pertinent positives and negatives as stated in HPI 10 point review of systems is otherwise negative. PMFSH Past Medical History Source: nursing notes reviewed Medical History ADHD Chronic constipation Difficulty sleeping Dyspepsia Environmental allergies Gastritis GERD (gastroesophageal reflux disease) Insomnia Itchy eyes Nausea and vomiting Ovarian cyst Seasonal allergies Shoulder injury Shoulder pain, left Sprain of left ankle Tobacco use Upper abdominal pain Surgical History H/O colonoscopy Hx of endoscopy Hx of wisdom tooth extraction Family History Family History Father History of diabetes mellitus Mother No problems noted. 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 GENERAL: Well developed, well nourished, in no acute distress. HEAD: Normocephalic/atraumatic EYES: PERRLA, EOMI OROPHARYNX: no oral lesions noted, posterior pharynx clear NECK: Supple, no adenopathy LUNGS: Normal breath sounds. No adventitious sounds or accessory muscle use. SpO2<100> CARDIOVASCULAR: Regular rate and rhythm without noted murmurs ABDOMEN: Soft, non-tender, non-distended with bowel sounds. NEUROLOGIC: Alert and oriented x 4. Strength and sensation to light touch were grossly intact x 4, no facial asymmetry, no pronator drift, cranial nerves 2-12 grossly intact.. Course Course Course Narrative: This is a 25-year-old female with history and clinical presentation consistent with migraine headache and no clinical suspicion for meningitis or intracranial pathologies. Review of all investigations and on re-evaluation findings and patient feels much better and is ready to go home. She was discharged in stable condition with instructions to follow-up with Dr. White as scheduled. MDM - Headache Lab Data Labs: Lab Results 08/06/20 08/06/20 Range/Units 22:35 22:35 Urine Color YELLOW Urine Appearance CLEAR Urine pH 6.5 (5.0-8.0) Ur Specific Mayer <= 1.005 (1.005-1.025) Urine Protein NEG (NEG-TRACE) MG/DL Urine Glucose (UA) NEG (NEG) MG/DL Urine Ketones NEG (NEG) MG/DL Urine Blood NEG (NEG) Urine Nitrite NEG (NEG) Ur Leukocyte Esterase NEG (NEG) Urine RBC 0-2 (0) /HPF Urine WBC 0-2 (0-4) /HPF Ur Squamous Epith Cells 1+ /LPF Urine Bacteria TRACE /LPF Urine Test NEGATIVE (NEGATIVE) Discharge Plan Discharge Clinical Impression: Headache Patient Disposition: Home, Self-Care Instructions: Acute Headache (ED) Additional Instructions: 1. Continue drinking plenty of water. 2. Tylenol 1000 mg, orally, every 6 hours as needed for pain control. Do not exceed 4000 mg within 24 hours. You need to be careful of the Tylenol that is also present in the Fioricet when calculating the 4000 mg. 3. Otherwise, resume fall prescribed medications as directed. 4. Follow-up with Dr. White as scheduled. Return to the ER for acute worsening of symptoms. Prescriptions: No Action ondansetron 4 mg tablet,disintegrating 4 mg PO Q6H PRN (Reason: nausea and vomiting) Qty: 30 RF: 1 loratadine 10 mg tablet 10 mg PO DAILY Qty: 90 RF: 0 acetaminophen [Tylenol] 325 mg capsule 325 mg PO QID PRN (Reason: pain) Qty: 28 RF: 0 acetaminophen [Tylenol Extra Strength] 500 mg tablet 500 mg PO Q6H PRN (Reason: pain or fever) Qty: 20 RF: 0 naproxen 500 mg tablet 500 mg PO BID PRN (Reason: pain) 10 Days Qty: 20 RF: 0 cyclobenzaprine 5 mg tablet 5 mg PO Q8H PRN (Reason: pain (scale score 7-10)) 5 Days Qty: 14 RF: 0 metoclopramide HCl [Reglan] 10 mg tablet 10 mg PO Q6H PRN (Reason: nausea and vomiting) Qty: 15 RF: 0 vgqomnywkn-qzwbltpoqwqlv-wutm [Fioricet] 50-300-40 mg capsule 1 cap PO Q8H PRN (Reason: pain) Qty: 15 RF: 0 sucralfate 1 gram tablet 1 g PO ONCE RF: 0 polyethylene glycol 3350 [Miralax] 17 gram/dose powder 17 g PO BID 30 Days Qty: 1020 RF: 0 trazodone 50 mg tablet 50 mg PO BEDTIME PRN (Reason: sleep) RF: 0 pantoprazole 40 mg tablet,delayed release (DR/EC) 40 mg PO BID 30 Days Qty: 60 RF: 2 ondansetron 8 mg tablet,disintegrating 8 mg PO Q8H PRN (Reason: nausea and vomiting) 30 Days Qty: 60 RF: 2 Referrals: Gary White MD [Primary Care Provider] - 2 days
[2020-08-06] MEDS: 0.9 % Sodium Chloride 1,000 ML 999 ML IV (22:20)
[2020-08-06] MEDS: Metoclopramide HCl 10 MG/2 ML VIAL IVPUSH (22:20)
[2020-08-06] MEDS: Acetaminophen 325 MG TABLET 975 MG PO (22:20)
[2020-08-06] MEDS: Ketorolac Tromethamine 15 MG/ML VIAL IVPUSH (22:20)
[2020-08-06] MEDS: diphenhydrAMINE HCL 50 MG/ML VIAL 25 MG IVPUSH (22:20)
[2020-08-06 22:42] LABS: Appearance Urine CLEAR; Color Urine YELLOW; Glucose Urine UA NEG (NEG); Leukocyte Esterase Urine NEG (NEG); Nitrite Urine NEG (NEG); PH 6.5 (5.0-8.0); Specific Gravity - Urine <= 1.005 (1.005-1.025); Urine Blood NEG (NEG); Urine Ketones NEG (NEG); Urine Protein NEG (NEG-TRACE)
[2020-08-06 22:44] LABS: UPreg QC Valid YES; Urine Pregnancy NEGATIVE (NEGATIVE)
[2020-08-06 22:53] LABS: Bacteria Urine TRACE /LPF; RBC Urine 0-2 /HPF (0); Squamous Epithelial Cell Urine 1+ /LPF; WBC Urine 0-2 /HPF (0-4)
--- NOTE | 2020-08-06 23:25 | PC.NURSE ---
PT REPORTS HEADACHEIMPROVED FOLLOWING MEDICATION AND FLUIDS. PT WAS ABLE TO REMOVE SUNGLASSES. PT EXPRESSED THAT SHE WANTS TO GO HOME AND GET SOME SLEEP.
[2020-08-06 23:26] VITALS: BP 99/71; PULSE 66; RESP 16; O2SAT 99
== END 2020-08-07 00:28 | disposition home or self-care (01) ==
PROVIDERS: Emergency Provider Student in an Organized Health Care Education/Training Program; PCP Internal Medicine
DX: R51.9 Headache, unspecified (principal)
CPT/HCPCS: 81001; 81025; 96361; 96374; 96375; 99284; J1200; J1885; J2765

== ENCOUNTER 2020-08-19 08:42 | Outpatient (REF) | payer OTHER, SELFPAY | END 2020-08-19 08:43 | disposition home or self-care (01) | LOC: HO.LAB 08:42 | PROVIDERS: Visit Provider Nurse Practitioner Family | DX: Z20.822 Contact with and (suspected) exposure to COVID-19 (principal); R52 Pain, unspecified | CPT/HCPCS: U0003; U0005 ==

== ENCOUNTER → 2020-09-12 15:01 | Outpatient (BNVA) | payer OTHER, SELFPAY | PROVIDERS: PCP Internal Medicine; Referring Provider Internal Medicine; Visit Provider Internal Medicine Gastroenterology ==

== ENCOUNTER → 2020-09-27 08:35 | Outpatient (BNVA) | payer OTHER, SELFPAY | PROVIDERS: PCP Internal Medicine; Referring Provider Internal Medicine; Visit Provider Internal Medicine Gastroenterology | DX: D64.9 Anemia, unspecified (principal) | CPT/HCPCS: 91110 ==

== ENCOUNTER 2020-11-08 09:10 | Outpatient (REF) | payer OTHER, SELFPAY ==
--- NOTE | ~2020-11-08 | XR_ITS ---
EXAMINATION: XR CHEST CLINICAL INFORMATION: Other chest pain COMPARISON: None. TECHNIQUE: PA and lateral radiographs of the chest were obtained. FINDINGS: No focal consolidation or mass. No pleural effusion or pneumothorax. Normal pulmonary vascularity. Normal heart size. Regional skeleton intact. XR/XR chest 2V IMPRESSION: Normal examination.
== END 2020-11-08 09:11 | disposition home or self-care (01) ==
LOC: HO.HMGCX 09:10
PROVIDERS: PCP Internal Medicine; Visit Provider Physician Assistant
DX: Z20.822 Contact with and (suspected) exposure to COVID-19 (principal); R07.89 Other chest pain; J02.9 Acute pharyngitis, unspecified
CPT/HCPCS: 71046; U0003; U0005

== ENCOUNTER 2021-02-25 16:41 | Outpatient (REF) | payer OTHER, SELFPAY | END 2021-02-25 16:42 | disposition home or self-care (01) | LOC: HO.LNP 16:41 | PROVIDERS: Visit Provider Physician Assistant Medical | DX: Z20.822 Contact with and (suspected) exposure to COVID-19 (principal); B34.9 Viral infection, unspecified | CPT/HCPCS: U0003; U0005 ==

== ENCOUNTER → 2021-07-24 08:08 | Outpatient (BNVA) | payer OTHER, SELFPAY | PROVIDERS: Referring Provider Internal Medicine; Visit Provider Internal Medicine Gastroenterology | DX: R10.13 Epigastric pain (principal) ==

== ENCOUNTER 2021-10-06 09:59 | Outpatient (REF) | payer OTHER, SELFPAY ==
--- NOTE | ~2021-10-06 | FL_ITS ---
EXAMINATION: FL BARIUM SWALLOW CLINICAL INFORMATION: Gastroesophageal reflux disease without esophagitis. COMPARISON: None TECHNIQUE: Barium swallow examination is performed using fluoroscopic evaluation in addition to multiple fluoroscopic spot views. The patient is imaged both upright and prone and using both thick and thin sulfate along with effervescent granules. Fluoroscopy time: 1.5 minutes DAP: 8.184 Gycm2 Images: 43 FINDINGS: Following oral administration of thick barium there is normal propagation bolus from the oral cavity through the pharynx, esophagus into stomach without obstruction, narrowing or stricture. On oral administration of barium coated turkey there is normal oral mastication with normal pulmonary bolus from the oral cavity, pharynx, esophagus into stomach without obstruction narrowing. On placing patient prone and oral administration of thin barium there is good distention of the esophagus without intraluminal filling defect or extrinsic compression. FL/FL barium swallow IMPRESSION: Normal barium swallow exam.
== END 2021-10-06 10:00 | disposition home or self-care (01) ==
LOC: HO.XRAY 09:59
PROVIDERS: Visit Provider Internal Medicine Gastroenterology
DX: R10.13 Epigastric pain (principal); K21.9 Gastro-esophageal reflux disease without esophagitis
CPT/HCPCS: 74220

== ENCOUNTER 2021-10-20 08:13 | Outpatient (REF) | payer OTHER, SELFPAY ==
[2021-10-20 11:19] LABS: MANUAL DIFF FLAG NO
[2021-10-20 11:32] LABS: Basophils Absolute Auto 0.1 X10*3/uL (0.0-0.2); Basophils Percent Auto 1.3 % (0-2); Eosinophils Absolute Auto 0.3 X10*3/uL (0.0-0.4); Eosinophils Percent Auto 4.4 % (0-4); Hemoglobin 13.3 g/dl (12.0-16.0); Imm Gran Abs Auto 0.03 X10*3/uL (0.00-0.03); Imm Gran Pct Auto 0.4 % (0.0-0.4); Lymphocytes Absolute Auto 2.6 X10*3/uL (1.2-4.9); Lymphocytes Percent Auto 33.7 % (20-40); Mean Corpuscular HGB Conc 32.4 g/dl (31.0-35.0); Mean Corpuscular Volume 89.3 fL (80.0-98.0); Mean Platelet Volume 10.1 fL (9.4-12.3); Monocytes Absolute Auto 0.6 X10*3/uL (0.1-1.2); Monocytes Percent Auto 7.5 % (2-11); Neutrophils Percent Auto 52.7 % (45-73); Platelet Count 440 X10*3/uL (160-400); Red Blood Count 4.59 X10*6/uL (4.20-5.50); White Blood Count 7.6 X10*3/uL (4.8-10.8)
[2021-10-20 12:22] LABS: Alanine Aminotransferase 24 U/L (0-31); Albumin Level 4.2 g/dL (3.5-5.0); Alkaline Phosphatase 66 U/L (39-117); Anion Gap 14 (12-20); Aspartate Amino Transferase 17 U/L (5-31); Bilirubin Total 0.3 mg/dL (0.0-1.0); Blood Urea Nitrogen 11 mg/dL (9-16); Calcium 9.3 mg/dL (8.4-10.2); Carbon Dioxide 26 mmol/L (22-29); Chloride 105 mmol/L (96-108); Cholesterol 149 mg/dL; Estimated Glomerular Filt Rate > 60; Glucose Fasting 95 mg/dL (60-99); HDL Cholesterol 49 mg/dL; LDL Cholesterol Calculated 95 mg/dl; Potassium 4.2 mmol/L (3.3-5.1); Sodium 141 mmol/L (135-145); Total Protein 6.9 g/dL (6.5-8.0); Triglycerides 28 mg/dL
[2021-10-20 12:24] LABS: TSH reflex Free T4 0.73 uIU/mL (0.32-4.0)
== END 2021-10-20 08:14 | disposition home or self-care (01) ==
LOC: HO.HMGCLDS 08:13
PROVIDERS: PCP Internal Medicine; Visit Provider Internal Medicine
DX: Z00.01 Encounter for general adult medical examination with abnormal findings (principal); E04.9 Nontoxic goiter, unspecified; G43.909 Migraine, unspecified, not intractable, without status migrainosus; K21.9 Gastro-esophageal reflux disease without esophagitis
CPT/HCPCS: 36415; 80053; 80061; 84443; 85025

== ENCOUNTER 2021-12-19 15:30 | Outpatient (REF) | payer OTHER, SELFPAY ==
--- NOTE | ~2021-12-19 | US_ITS ---
EXAMINATION: US THYROID CLINICAL INFORMATION: Nontoxic goiter, unspecified. COMPARISON: CT soft tissue neck 03/27/2020. TECHNIQUE: Linear transducer grayscale and color Doppler examination with attention to the region of the thyroid. FINDINGS: SIZE: Measurements of the thyroid lobes and nodules are given in sagittal, anteroposterior and transverse dimensions respectively. Right Thyroid Lobe: 5.42 x 1.25 x 1.66 cm, volume 5.88 mL. Parenchyma: The gland echotexture is homogeneous. Thyroid vascularity is normal. Left Thyroid Lobe: 5.47 x 1.51 x 1.96 cm, volume 8.52 mL. Parenchyma: The gland echotexture is homogeneous. Thyroid vascularity is normal. Isthmus: 0.17 cm in maximum AP dimension. Estimated total number of nodules greater than or equal to 1 cm: 0. 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 Location: Right inferior. Size: 0.31 x 0.27 x 0.33 cm, volume 0.02 mL. Nodule characteristics: Composition: Cystic(0). ACR TI-RADS total points: 0 ACR TI-RADS category: 1 2. Location: Right inferior. Size: 0.20 x 0.14 x 0.17 cm, volume 0.003 mL. Nodule characteristics: Composition: Cystic(0). ACR TI-RADS total points: 0 ACR TI-RADS category: 1 NODES: No lymphadenopathy is seen in the tissue surrounding the thyroid gland. US/US thyroid IMPRESSION: Subcentimeter thyroid nodules. ACR TI RADS category 1. ACR TI-RADS RECOMMENDATION REFERENCE: Ultrasound-guided fine-needle aspiration, followup ultrasound, no further follow up. * TR1 (0 point) and TR 2 (2 points): No FNA or follow up. * TR3 (3 points): FNA if more than or equal to 2.5 cm in maximum dimension, followup ultrasound in 1, 3 and 5 years if 1.5 to 2.4 cm in maximum dimension. * TR4 (4-6 points): FNA if more than or equal to 1.5 cm in maximum dimension, followup ultrasound in 1, 2, 3 and 5 years if 1 to 1.4 cm in maximum dimension. * TR5 (more than or equal to 7 points): FNA if more than or equal to 1 cm in maximum dimension, followup ultrasound every year for 5 years if 0.5 to 0.9 cm in maximum dimension. * TR3, TR4 or TR5 nodules that are below the size threshold for followup receive no follow up.
== END 2021-12-19 15:31 | disposition home or self-care (01) ==
LOC: HO.HMGCX 15:30
PROVIDERS: PCP Internal Medicine; Visit Provider Internal Medicine
DX: E04.9 Nontoxic goiter, unspecified (principal)
CPT/HCPCS: 76536

== ENCOUNTER 2022-01-28 10:01 | Outpatient (REF) | payer OTHER, SELFPAY ==
[2022-01-28 12:19] LABS: Influenza A PCR NEGATIVE (Negative); Influenza B PCR NEGATIVE (Negative); Resp Syncy Virus RNA Qual PCR NEGATIVE (Negative); SARS COV2 PCR INHOUSE NEGATIVE (Negative)
== END 2022-01-28 10:02 | disposition home or self-care (01) ==
LOC: HO.LNP 10:01
PROVIDERS: Visit Provider Nurse Practitioner Family
DX: R11.10 Vomiting, unspecified (principal); R19.7 Diarrhea, unspecified; Z20.822 Contact with and (suspected) exposure to COVID-19
CPT/HCPCS: 0241U

== ENCOUNTER 2022-06-02 11:26 | Outpatient (REF) | payer OTHER, SELFPAY ==
[2022-06-02 14:14] LABS: Hematocrit 43.2 % (37.0-47.0); Hemoglobin 13.8 g/dl (12.0-16.0); Mean Corpuscular HGB Conc 31.9 g/dl (31.0-35.0); Mean Corpuscular Hemoglobin 28.5 pg (27.0-33.0); Mean Corpuscular Volume 89.1 fL (80.0-98.0); Platelet Count 475 X10*3/uL (160-400); Red Blood Count 4.85 X10*6/uL (4.20-5.50); Red Cell Distribution Width 12.4 % (11.0-16.0); White Blood Count 8.5 X10*3/uL (4.8-10.8)
[2022-06-02 14:40] LABS: Alanine Aminotransferase 24 U/L (0-31); Albumin Level 4.4 g/dL (3.5-5.0); Alkaline Phosphatase 79 U/L (39-117); Anion Gap 14 (12-20); Aspartate Amino Transferase 15 U/L (5-31); Bilirubin Direct < 0.2 mg/dL (0.0-0.5); Bilirubin Total 0.3 mg/dL (0.0-1.0); Blood Urea Nitrogen 14 mg/dL (9-16); Calcium 9.9 mg/dL (8.4-10.2); Carbon Dioxide 28 mmol/L (22-29); Chloride 104 mmol/L (96-108); Estimated Glomerular Filt Rate > 60; Glucose Random 82 mg/dL (60-115); Potassium 4.6 mmol/L (3.3-5.1); Sodium 141 mmol/L (135-145); Total Protein 7.2 g/dL (6.5-8.0)
[2022-06-02 14:44] LABS: Thyroid Stimulating Hormone 0.52 uIU/mL (0.32-4.0)
[2022-06-02 14:59] LABS: Erythrocyte Sedimentation Rate 13 MM/HR (0-20)
== END 2022-06-02 11:27 | disposition home or self-care (01) ==
LOC: HO.HMGCLDS 11:26
PROVIDERS: PCP Internal Medicine; Visit Provider Internal Medicine
DX: R19.7 Diarrhea, unspecified (principal)
CPT/HCPCS: 36415; 80048; 80076; 84443; 85027; 85652

== ENCOUNTER → 2022-06-11 14:02 | Outpatient (BNVA) | payer OTHER, SELFPAY | PROVIDERS: PCP Internal Medicine; Visit Provider Internal Medicine Gastroenterology | DX: Z13.89 Encounter for screening for other disorder (principal) ==

== ENCOUNTER → 2022-07-03 14:29 | Outpatient (BNVA) | payer OTHER, SELFPAY | PROVIDERS: PCP Internal Medicine; Visit Provider Nurse Practitioner Family ==

== ENCOUNTER 2022-07-07 11:03 | Outpatient (REF) | payer OTHER, SELFPAY ==
[2022-07-07 16:26] LABS: Adenovirus F 40/41 Not Detected (Not Detect.); Astrovirus Not Detected (Not Detect.); Campylobacter Not Detected (Not Detect.); Cryptosporidium Not Detected (Not Detect.); Cyclospora cayetanensis Not Detected (Not Detect.); E. coli EAEC Not Detected (Not Detect.); E. coli EPEC Not Detected (Not Detect.); E. coli ETEC Not Detected (Not Detect.); E. coli STEC Not Detected (Not Detect.); Entamoeba histolytica Not Detected (Not Detect.); Giardia lamblia Not Detected (Not Detect.); Norovirus GI/GII Not Detected (Not Detect.); Plesiomonas shigelloides Not Detected (Not Detect.); Rotavirus A Not Detected (Not Detect.); Salmonella Not Detected (Not Detect.); Sapovirus Not Detected (Not Detect.); Shigella sp./EIEC Not Detected (Not Detect.); Vibrio Not Detected (Not Detect.); Vibrio Cholerae Not Detected (Not Detect.); Yersinia enterocolitica Not Detected (Not Detect.)
== END 2022-07-07 11:04 | disposition home or self-care (01) ==
LOC: HO.HMGCLDS 11:03
PROVIDERS: Internal Medicine; PCP Internal Medicine; Visit Provider Internal Medicine Gastroenterology
DX: R19.7 Diarrhea, unspecified (principal)
CPT/HCPCS: 87177; 87209; 87507

== ENCOUNTER 2022-10-24 11:48 | Outpatient (AMB) | payer OTHER, SELFPAY ==
[2022-10-24 13:02] VITALS: BP 120/73; PULSE 103; TEMP 36.9; O2SAT 98; BMI 32.0
--- NOTE | 2022-10-24 13:02 | MHC.OFFWIV ---
Intake Vital Signs 10/24/22 13:02 Height 5 ft 5 in Weight 192 lb 4 oz BMI 32.0 BP 120/73 Blood Pressure Location Lt brachial Position Sitting Pulse 103 H Pulse Source Pulse Oximeter Temp 98.5 F Temp Source Oral Pulse Oximetry (%) 98 Oxygen Delivery Method Room Air Oxygen Flow Rate 98.5 Intake Visit Reasons: Rt ear infection/[phone] Intake Note: Patient is here with question of right ear infection with pain and stuffiness. She states it's been for 2 days. Patient Tobacco Use Status: Former Tobacco user Allergies erythromycin base [ERYTHROMYCIN BASE] Allergy (Unknown, Verified 10/24/22 13:06) UNKNOWN escitalopram [From LEXAPRO] Adverse Reaction (Unknown, Verified 10/24/22 13:06) NAUSEA seasonal allergies Allergy (Unknown, Uncoded 10/24/22 13:06) Unknown Do you need a note to return to daycare/school/sports/work: No HPI HPI Comments History of Present Illness Details This is a 27-year-old female who presents to the office today for sick visit. Patient complaining of right-sided ear fullness that began yesterday accompanied with right ear pain that began today. Patient is otherwise feeling well. [facility] [place] Medical History ADHD Chronic constipation Difficulty sleeping Dyspepsia Environmental allergies Gastritis GERD (gastroesophageal reflux disease) Insomnia Itchy eyes Nausea and vomiting Ovarian cyst Seasonal allergies Shoulder injury Shoulder pain, left Sprain of left ankle Tobacco use Upper abdominal pain Surgical History H/O colonoscopy Hx of endoscopy Hx of wisdom tooth extraction Family History Father History of diabetes mellitus Mother Mental health disorder Other Cluster headaches Multiple sclerosis Social History Household Members: Significant Other Housing: House Alcohol intake: current Alcohol intake frequency: does not drink Patient Tobacco Use Status: Former Tobacco user Tobacco use type: Smokeless Tobacco e-Cigarette/Vaping Use: Currently Using Substance Use Type: Marijuana Current occupational status: employed 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 Cognitive needs: No Hearing needs: No Vision needs: No Review of Systems Const All systems reviewed & are unremarkable except as noted in HPI and below Reports no additional complaints Eyes Reports no additional complaints ENT Reports no additional complaints Card Reports no additional complaints Resp Reports no additional complaints GI Reports no additional complaints Reports no additional complaints Musc Reports no additional complaints Skin/Breast Reports system reviewed and no additional complaints, except as documented Neuro Reports no additional complaints Psych Reports no additional complaints Endo Reports no additional complaints Roddy/Lymph Reports no additional complaints Aller/Immun Reports no additional complaints Physical Exam Vital Signs: Last Vital Signs Temp 98.5 F 10/24/22 13:02 Pulse 103 H 10/24/22 13:02 BP 120/73 10/24/22 13:02 Pulse Ox 98 10/24/22 13:02 Oxygen Delivery Method Room Air 10/24/22 13:02 Oxygen Flow Rate 98.5 10/24/22 13:02 BMI result Body Mass Index 32.0 Const General: cooperative, healthy appearing, no acute distress and well developed Orientation/consciousness: patient oriented x3 HEENT Other: On physical examination, patient has cerumen impaction of the right ear. Cerumen removal was performed. Upon re-evaluation, patient's external auditory canal is extremely erythematous and edematous and tender. Head: Yes normal to inspection Ears: Abnormal EAC present cerumen impaction on the right, erythema on the right, edema on the right and EAC tenderness on the right General nose exam: Normal external nose present Face and sinus: Yes normal facial exam Mouth: Normal oral and palatal mucosa present Eyes General: appearance normal, both eyes and all related structures Pupils: Equal, round and reactive pupils present EOM: EOMs intact bilaterally Resp Effort & Inspection: normal respiratory effort and no respiratory distress Auscultation: clear to auscultation bilaterally Cardio Rate: regular rate Rhythm: regular rhythm Heart sounds: no gallops, no murmurs and no rubs Peripheral pulses: Peripheral pulses 2+ throughout GI Inspection: No distended Palpation (GI): Soft to palpation and nontender Auscultation: normal bowel sounds Skin General skin exam: no rashes or lesions noted Neuro General: patient oriented x3 Cranial nerves: Yes CN's II-XII intact bilaterally and Yes Equal, round and reactive pupils present Gait exam (Neuro): Normal gait present Motor exam (neuro): 5/5 motor strength present throughout Extrem General: Yes normal to inspection, Yes full ROM and Yes no clubbing, cyanosis or edema Psych Appearance: grossly normal Mental Status: mental status grossly normal Office Procedures Cerumen Removal From which ear canal was the cerumen removed: right Removal: irrigation Notes: patient tolerated procedure well [id number] Irrigation/Lavage Assessment & Plan Assessment & Plan (1) Impacted cerumen of right ear: Code(s): H61.21 - Impacted cerumen, right ear (2) Acute actinic otitis externa of right ear: Code(s): H60.511 - Acute actinic otitis externa, right ear Plan This is a 27-year-old female who presents to the office complaining of right ear fullness that began 2 days ago accompanied by right ear pain that began yesterday. On physical examination, patient had cerumen impaction of the right ear. Cerumen removal was performed via irigation and patient tolerated procedure well. Upon re-evaluation, patient has erythema, edema, and tenderness of the right external auditory canal. History and physical most consistent with cerumen impaction of the right ear and acute otitis externa of the right ear. Patient's vital signs are stable, her physical exam is otherwise benign, and she is overall nontoxic appearing. Patient is safe to be discharged home. She was sent home on neomycin polymyxin hydrocortisone ear drops 3 times daily times 10 days. Patient was instructed to utilize wbla-rvc-swkxwkb Debrox ear drops to prevent further cerumen impaction. Patient was advised to follow-up here or go to the emergency room for persistent/worsening symptoms. Patient verbalized her understanding and she is in agreement with the plan. Medications: New qgeqxxam-iolrstgdm-KD 3.5-10,000-1 mg/mL-unit/mL-% 4 drps otic (ear) right Q8H 10 mL 0RF 10 days Coding Level of Care Code Est Pt Level 3 (72768) Diagnoses Impacted cerumen of right ear H61.21 Acute actinic otitis externa of right ear H60.511 CPT Codes Office Procedure - CPT: 25343-Snt Irrigation/Lavage ([id number])
== END 2022-10-24 13:43 | disposition home or self-care (01) ==
PROVIDERS: PCP Internal Medicine; Visit Provider Physician Assistant Medical
DX: H61.21 Impacted cerumen, right ear (principal); H60.511 Acute actinic otitis externa, right ear
CPT/HCPCS: 69209; 99051; 99213

== ENCOUNTER 2023-04-02 14:02 | Outpatient (AMB) | payer OTHER, SELFPAY ==
--- NOTE | 2023-04-02 14:07 | A.OFFVIS_ITS ---
Intake Vital Signs 04/02/23 14:14 Height 5 ft 5 in Weight 199 lb 2 oz BMI 33.1 BP 110/72 Blood Pressure Location Lt brachial Position Sitting Pulse 90 Pulse Source Pulse Oximeter Pulse Oximetry (%) 98 Oxygen Delivery Method Room Air Intake Visit Reasons: 6m follow up headaches-LVM Intake Note: Patient presents for 6 month f/u. Allergies erythromycin base [ERYTHROMYCIN BASE] Allergy (Unknown, Verified 04/02/23 14:14) UNKNOWN escitalopram [From LEXAPRO] Adverse Reaction (Unknown, Verified 04/02/23 14:14) NAUSEA seasonal allergies Allergy (Unknown, Uncoded 10/24/22 13:06) Unknown Medication List - Last Reconciled 04/02/23 by CAS Ennis acetaminophen (Tylenol Extra Strength) 500 mg PO Q6H PRN amitriptyline 37.5 mg (1.5 x 25 mg) PO BEDTIME 90 days esomeprazole magnesium 40 mg (2 x 20 mg) PO DAILY 90 days loperamide (Imodium A-D) 2 mg PO Q4H PRN loratadine 10 mg PO DAILY magnesium oxide 400 mg PO BEDTIME 30 days quiokqbr-bmgkjhrbf-VO 3.5-10,000-1 mg/mL-unit/mL-% 4 drps otic (ear) right Q8H 10 days ondansetron 4 mg PO Q8H PRN riboflavin (vitamin B2) 400 mg PO DAILY 30 days simethicone (Gas Relief (simethicone)) 125 mg PO BID-QID PRN 30 days sucralfate (Carafate) 10 mL PO BID 30 days sumatriptan succinate 50 - 100 mg (0.5 - 1 x 100 mg) PO Q2H PRN 30 days HPI HPI Comments History of Present Illness Details 27-yr-old female presents for f/u visit. Pt denies any significant interval medical changes. Pt reports she has been having BUE R > L cramping, and inner wrist electrical shooting pain- especially if pressing the area, some swelling in hands/wrists/fingers. Notices weakness, popping, pain- when doing toe push-ups, or opening jars or holding a bowl for an extended time (she is a love). Can wake up w/ Erwin hand pind and needles. No skin color changes, neck pain, h/o neck or UE injuries. She states the light sensitivity and headaches are better. No recent headaches or dizziness. Using B2. Has not needed to take the Sumatriptan recently. Baseline headache characteristics: Bilateral temporal throbbing pain a/w headache is associated with photophobia, phonophobia, tiredness nausea, lightheadedness. [facility] Medical History ADHD Chronic constipation Difficulty sleeping Dyspepsia Environmental allergies Gastritis GERD (gastroesophageal reflux disease) Insomnia Itchy eyes Nausea and vomiting Ovarian cyst Seasonal allergies Shoulder injury Shoulder pain, left Sprain of left ankle Tobacco use Upper abdominal pain Surgical History H/O colonoscopy Hx of wisdom tooth extraction Hx of endoscopy Family History Father History of diabetes mellitus Mother Mental health disorder Other Cluster headaches Multiple sclerosis Social History Household Members: Significant Other Housing: House Alcohol intake: current Alcohol intake frequency: does not drink Patient Tobacco Use Status: Former Tobacco user Tobacco use type: Smokeless Tobacco e-Cigarette/Vaping Use: Currently Using Substance Use Type: Marijuana Current occupational status: employed 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 General: patient oriented x3, gait normal and deep tendon reflexes 2+ bilaterally Cranial nerves: Yes CN's II-XII intact bilaterally Cognition (Neuro): normal cognition Motor exam (neuro): 5/5 motor strength present throughout Psych Appearance: grossly normal Mental Status: mental status grossly normal Speech and movement: Normal speech and movement present Affect: normal affect Attitude: cooperative Assessment & Plan Assessment & Plan (1) Paresthesia and pain of both upper extremities: Code(s): R20.2 - Paresthesia of skin; M79.601 - Pain in right arm; M79.602 - Pain in left arm (2) Photophobia: Comment: likely secondary to migraine Code(s): H53.149 - Visual discomfort, unspecified (3) Dizziness: Comment: ? vestibular migraine Code(s): R42 - Dizziness and giddiness Plan For BUE R > L paresthesias and pain: Check labs for common etiologies. Pt advised to undergo BUE EMG/NCS. Try OTC BUE carpal tunnel splints qhs. May continue exercise- advised to monitor hand position/pain while exercising. For acute migraine treatment: Continue sumatriptan 100 mg tablet, half to 1 tab at onset of migraine, may repeat in 2 hours with max of 2 tabs per day or 6 tabs per week.? May take sumatriptan with either Tylenol or ibuprofen at her usual doses. ? For migraine prevention treatment: Continue riboflavin (vitamin B2) 400 mg daily in morning. Continue magnesium 400 mg daily at bedtime, may hold for loose stools. Continue amitriptyline 25 mg tablet, 1.5 tablets daily at bedtime. f/u in 4 months or sooner prn. Orders: Orders TSH reflex Free T4 Today E04.9 - Nontoxic goiter, unspecified, H53.149 - Visual discomfort, unspecified, M79.601 - Pain in right arm, M79.602 - Pain in left arm, R20.2 - Paresthesia of skin, R42 - Dizziness and giddiness Vitamin B12 and Folate Today E04.9 - Nontoxic goiter, unspecified, H53.149 - Visual discomfort, unspecified, M79.601 - Pain in right arm, M79.602 - Pain in left arm, R20.2 - Paresthesia of skin, R42 - Dizziness and giddiness Hemoglobin A1c Today E04.9 - Nontoxic goiter, unspecified, H53.149 - Visual discomfort, unspecified, M79.601 - Pain in right arm, M79.602 - Pain in left arm, R20.2 - Paresthesia of skin, R42 - Dizziness and giddiness NE electromyogram (EMG) Today E04.9 - Nontoxic goiter, unspecified, M79.601 - Pain in right arm, M79.602 - Pain in left arm, R20.2 - Paresthesia of skin Complete Blood Count Auto Diff Today E04.9 - Nontoxic goiter, unspecified, H53.149 - Visual discomfort, unspecified, M79.601 - Pain in right arm, M79.602 - Pain in left arm, R20.2 - Paresthesia of skin, R42 - Dizziness and giddiness Comprehensive Met. Panel Today E04.9 - Nontoxic goiter, unspecified, H53.149 - Visual discomfort, unspecified, M79.601 - Pain in right arm, M79.602 - Pain in left arm, R20.2 - Paresthesia of skin, R42 - Dizziness and giddiness Coding Level of Care Code Est Pt Level 4 (98771) Diagnoses Paresthesia and pain of both upper extremities R20.2; M79.601; M79.602 Photophobia H53.149 Dizziness R42
[2023-04-02 14:14] VITALS: BP 110/72; PULSE 90; O2SAT 98; BMI 33.1
== END 2023-04-02 15:07 | disposition home or self-care (01) ==
PROVIDERS: Visit Provider Nurse Practitioner Family
DX: R20.2 Paresthesia of skin (principal); M79.601 Pain in right arm; M79.602 Pain in left arm; H53.149 Visual discomfort, unspecified; R42 Dizziness and giddiness
CPT/HCPCS: 99214

== ENCOUNTER → 2023-04-02 14:02 | Outpatient (BNVA) | payer OTHER, SELFPAY | PROVIDERS: Visit Provider Nurse Practitioner Family | DX: R20.2 Paresthesia of skin (principal); M79.601 Pain in right arm; M79.602 Pain in left arm; H53.149 Visual discomfort, unspecified; R42 Dizziness and giddiness | CPT/HCPCS: 99212 ==

== ENCOUNTER 2023-04-07 14:38 | Outpatient (REF) | payer OTHER, SELFPAY ==
--- NOTE | 2023-04-07 14:40 | EMG_ITS ---
Chief complaint: Wrist pain right worse than left Reason for referral: Evaluate for Carpal Tunnel Syndrome Referred by: Liza You NP Procedure done: Bilateral upper extremities NCS/EMG Precautions and/or limitations: None The limb temperature was monitored continuously and remained between 32-36 degrees C during the performance of the NCS. Nerve Conduction Studies Anti Sensory Summary Table ?Stim Site NR Onset (ms) Norm Onset (ms) Peak (ms) Norm Peak (ms) O-P Amp (?V) Norm O-P Amp Site1 Site2 Delta-0 (ms) Dist (cm) Ady (m/s) Norm Ady (m/s) Left Median Anti Sensory (2nd Digit) Wrist ? 2.3 3.0 <3.6 105.5 >10 Wrist 2nd Digit 2.3 14.0 61 Right Median Anti Sensory (2nd Digit) Wrist ? 2.6 3.6 <3.6 79.2 >10 Wrist 2nd Digit 2.6 14.0 54 Left Ulnar Anti Sensory (5th Digit) Wrist ? 2.7 3.3 <3.7 79.2 >15.0 Wrist 5th Digit 2.7 14.0 52 Right Ulnar Anti Sensory (5th Digit) Wrist ? 2.4 3.2 <3.7 74.2 >15.0 Wrist 5th Digit 2.4 14.0 58 Motor Summary Table ?Stim Site NR Onset (ms) Norm Onset (ms) O-P Amp (mV) Norm O-P Amp iAmp (mV) Amp (1st) (%) Site1 Site2 Delta-0 (ms) Dist (cm) Ady (m/s) Norm Ady (m/s) Left Median Motor (Abd Poll Brev) Wrist ? 3.7 <3.9 7.8 >4.5 10.8 100.0 Elbow Wrist 2.8 21.0 75 >45 Elbow ? 6.5 6.8 9.5 87.2 Right Median Motor (Abd Poll Brev) Wrist ? 3.8 <3.9 15.4 >4.5 19.1 100.0 Elbow Wrist 3.6 21.0 58 >45 Elbow ? 7.4 13.6 17.4 88.3 Left Ulnar Motor (Abd Dig Minimi) Wrist ? 2.9 <3.0 8.7 >5 9.8 100.0 B Elbow Wrist 2.9 18.0 62 >45 B Elbow ? 5.8 7.5 8.6 86.2 A Elbow B Elbow 1.6 10.0 62 >45 A Elbow ? 7.4 7.2 8.4 82.8 Right Ulnar Motor (Abd Dig Minimi) Wrist ? 2.8 <3.0 15.1 >5 17.9 100.0 B Elbow Wrist 3.4 19.5 57 >45 B Elbow ? 6.2 12.9 15.1 85.4 A Elbow B Elbow 1.3 10.0 77 >45 A Elbow ? 7.5 12.7 14.9 84.1 Comparison Summary Table ?Stim Site NR Peak (ms) Norm Peak (ms) P-T Amp (?V) Site1 Site2 Delta-P (ms) Norm Delta (ms) Right Median/Radial Dig I Comparison (Digit 1 - 10cm) Median ? 2.6 <2.9 29.5 Median Radial -0.3 Radial ? 2.9 <2.8 120.9 EMG ?Side Muscle Nerve Root Ins Act Fibs Psw Amp Dur Poly Recrt Int Pat Comment Right 1stDorInt Ulnar C8-T1 Nml Nml Nml Nml Nml 0 Nml Complete Right FlexCarRad Median C6-7 Nml Nml Nml Nml Nml 0 Nml Complete Right Biceps Musculocut C5-6 Nml Nml Nml Nml Nml 0 Nml Complete Right Triceps Radial C6-7-8 Nml Nml Nml Nml Nml 0 Nml Complete Right Deltoid Axillary C5-6 Nml Nml Nml Nml Nml 0 Nml Complete Left 1stDorInt Ulnar C8-T1 Nml Nml Nml Nml Nml 0 Nml Complete Left FlexCarRad Median C6-7 Nml Nml Nml Nml Nml 0 Nml Complete Left Biceps Musculocut C5-6 Nml Nml Nml Nml Nml 0 Nml Complete Left Triceps Radial C6-7-8 Nml Nml Nml Nml Nml 0 Nml Complete Left Deltoid Axillary C5-6 Nml Nml Nml Nml Nml 0 Nml Complete FINDINGS: All motor and sensory nerves tested showed normal latencies, amplitudes and conduction velocities. Concentric needle EMG was performed in selected muscles of the bilateral upper extremities. Study did not reveal signs of electric abnormalities as shown in the table below. IMPRESSION: 1. This is a normal study. 2. There is no electrodiagnostic evidence for median neuropathy, ulnar neuropathy, brachial plexopathy, or cervical radiculopathy. Thank you for your kind referral. Svetlana Tovar MD, PORSCHE Board Certified, [place] [employer] and Rehabilitation (ABPMR) Board Certified, [place] Board of Electrodiagnostic Medicine (ABEM) CODIN 78299 x 2 MTDD
== END 2023-04-07 14:39 | disposition home or self-care (01) ==
LOC: HO.NEURO 14:38
PROVIDERS: PCP Internal Medicine; Visit Provider Nurse Practitioner Family
DX: M79.601 Pain in right arm (principal); M79.602 Pain in left arm; E04.9 Nontoxic goiter, unspecified; R20.2 Paresthesia of skin
CPT/HCPCS: 95886; 95911

== ENCOUNTER → 2023-04-07 14:40 | Outpatient (BNV) | payer OTHER, SELFPAY | PROVIDERS: PCP Internal Medicine; Visit Provider Physical Medicine & Rehabilitation | DX: M25.531 Pain in right wrist (principal); M25.532 Pain in left wrist | CPT/HCPCS: 95886; 95911 ==

== ENCOUNTER 2023-04-28 09:04 | Outpatient (AMB) | payer OTHER, SELFPAY ==
[2023-04-28 09:05] VITALS: BP 120/88; PULSE 95; O2SAT 98; BMI 33.3
--- NOTE | 2023-04-28 09:05 | MHC.PC.OV ---
Vital Signs 04/28/23 09:05 Height 5 ft 5 in Weight 200 lb 4 oz BMI 33.3 BP 120/88 Blood Pressure Location Rt brachial Position Sitting Pulse 95 Pulse Source Pulse Oximeter Pulse Oximetry (%) 98 Oxygen Delivery Method Room Air Intake Visit Reasons: Annual PE Allergies erythromycin base [ERYTHROMYCIN BASE] Allergy (Unknown, Verified 04/28/23 09:06) UNKNOWN escitalopram [From LEXAPRO] Adverse Reaction (Unknown, Verified 04/28/23 09:06) NAUSEA seasonal allergies Allergy (Unknown, Uncoded 10/24/22 13:06) Unknown Medication List - Last Reconciled 04/28/23 by Gary White MD acetaminophen (Tylenol Extra Strength) 500 mg PO Q6H PRN amitriptyline 37.5 mg (1.5 x 25 mg) PO BEDTIME 90 days esomeprazole magnesium 40 mg (2 x 20 mg) PO DAILY 90 days loperamide (Imodium A-D) 2 mg PO Q4H PRN loratadine 10 mg PO DAILY magnesium oxide 400 mg PO BEDTIME 30 days ondansetron 4 mg PO Q8H PRN riboflavin (vitamin B2) 400 mg PO DAILY 30 days simethicone (Gas Relief (simethicone)) 125 mg PO BID-QID PRN 30 days sucralfate (Carafate) 10 mL PO BID 30 days sumatriptan succinate 50 - 100 mg (0.5 - 1 x 100 mg) PO Q2H PRN 30 days Tobacco use date assessed: 04/28/23 Dental Screening Dental Screen Date: 04/28/23 Did you have a dental visit in the last 12 months?: Yes Did you have a dental problem in the last 6 months where you did not have access to dental care?: No Was dental information given to patient?: Patient has dentist HPI Annual PE HPI Details Patient is 27-year-old female came in today for her regular follow-up appointment I see that she is gaining weight she was weighing 181 lb May of last year and now she is 200 lb, discussed with the patient appointment to metabolic clinic offered She is seeing neurologist for migraine headache and is taking amitriptyline and sumatriptan through their office Patient is also established with gastroenterology and is taking medication for acid reflux Pap smear breast exam through OBGYN , patient is requesting new referral Patient is taking no medication from this office Labs done in May reviewed with the patient I do not see any concerns we will skip labs this year FORMERLY [facility], [facility] Medical History Gastritis Difficulty sleeping Shoulder pain, left Shoulder injury Itchy eyes Environmental allergies Nausea and vomiting Ovarian cyst Chronic constipation GERD (gastroesophageal reflux disease) Dyspepsia Upper abdominal pain Sprain of left ankle Tobacco use Seasonal allergies Insomnia ADHD Surgical History H/O colonoscopy Hx of wisdom tooth extraction Hx of endoscopy Family History Father History of diabetes mellitus Mother Mental health disorder Other Cluster headaches Multiple sclerosis Social History Household Members: Significant Other Housing: House Alcohol intake: current Alcohol intake frequency: does not drink Patient Tobacco Use Status: Former Tobacco user Tobacco use type: Smokeless Tobacco e-Cigarette/Vaping Use: Currently Using Substance Use Type: Marijuana Current occupational status: employed 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 1. Little interest or pleasure in doing things: not at all 2. Feeling down, depressed, or hopeless: not at all 3. Trouble falling or staying asleep, or sleeping too much: nearly every day 4. Feeling tired or having little energy: more than half the days 5. Poor appetite or overeating: not at all 6. Feeling bad about yourself - or that you are a failure or have let yourself or your family down: not at all 7. Trouble concentrating on things, such as reading the newspaper or watching television: nearly every day 8. Moving or speaking so slowly that other people could have noticed. Or the opposite - being so fidgety or restless that you have been moving around a lot more than usual: not at all 9. Thoughts that you would be better off or of hurting yourself in some way: not at all Total score: 8 Depression Screening Interpretation: Negative Depression Screening Done: Yes [id number] - PHQ-9 Billing: Yes Source: Developed by Drs. Uriel Lozoya, Shirin Ross, Garry Forde and colleagues, with an educational charla from [employer]. Thrive Questionnaire Date Thrive assessed: 04/28/23 I am a: Patient What is your living situation today?: I have a steady place to live Within the past 12 months, did the food you bought not last and you didn't have the money to get more?: Never true Within the past 12 months, did you worry whether your food would run out before you got money to buy more?: Never true Do you have trouble paying for medicines?: No Do you have trouble getting transportation to medical appointments?: No Do you have trouble paying your heating and electricity bill?: No Do you have trouble taking care of your child, family member or friend?: No Do you have trouble with day-to-day activities such as bathing, preparing meals, shopping, managing finances, etc.?: No Are you currently unemployed and looking for a job?: Yes Are you interested in more education?: No Please select the resources that you would like help with: None Currently or been in a relationship where the following occur: no concerns reported THRIVE Score: 0 AUDIT C Alcohol Use Questionnaire (AUDIT-C) 1. How often do you have a drink containing alcohol?: Never 3. How often do you have six or more drinks on one occasion?: Never Total Score: 0 Score Reviewed/Action Taken: Yes COLLEEN-7 AMB Questionnaire COLLEEN-7 Date COLLEEN - 7 assessed: 04/28/23 Feeling nervous, anxious, or on edge: 2 = More than half the days Not being able to stop or control worryin = Not at all Worrying too much about different things: 0 = Not at all Trouble relaxin = More than half the days Being so restless that it is hard to sit still: 2 = More than half the days Becoming easily annoyed or irritable: 0 = Not at all Feeling afraid as if something awful might happen: 0 = Not at all Total COLLEEN-7 score (0-4 normal; 5-9 mild; 10-14 moderate; 15-21 severe): 6 Source: Developed by Shirin Castellanos, Garry Forde and colleagues, with an educational charla from [employer]. COLLEEN-7 Assessment Billing COLLEEN-7 Assessment Tool: COLLEEN-7 Assessment 05229 Review of Systems Const Denies chills, Denies fever(s) and Denies headache(s) Eyes Denies blurry vision ENT Denies headache(s), Denies nasal discharge, Denies nasal obstruction, Denies odynophagia and Denies sinus pain Card Denies chest pain at rest and Denies chest pain with activity Resp Denies cough and Denies hemoptysis GI Denies diarrhea, Denies odynophagia, Denies vomiting and Denies hematemesis Reports as per HPI Musc Denies abnormal gait Skin/Breast Reports as per HPI Neuro Denies Neuro-related abnormal movements, Denies Abnormal speech present, Denies abnormal gait, Denies headache(s) and Denies Sensory deficit (Neuro) Psych Denies mood swings and Denies paranoia Endo Reports as per HPI Roddy/Lymph Reports as per HPI Aller/Immun Reports as per HPI Physical exam (Primary Care) Vital Signs: Last Vital Signs Pulse 95 04/28/23 09:05 BP 120/88 04/28/23 09:05 Pulse Ox 98 04/28/23 09:05 Oxygen Delivery Method Room Air 04/28/23 09:05 BMI result Body Mass Index 33.3 Tobacco/Smoking Status: Tobacco use Status Tobacco use date assessed 04/28/23 04/28/23 09:08 Patient Tobacco Use Status Former Tobacco user 04/28/23 09:08 Tobacco use type Smokeless Tobacco 04/28/23 09:08 e-Cigarette/Vaping Use Currently Using 04/28/23 09:08 Depression Screening Interpretation: Negative Thrive Assessment: Date of Thrive Assessment Date Thrive assessed 10/17/21 04/28/23 09:08 Currently or been in a relationship where the following occur: no concerns reported Const General: cooperative, comfortable and no acute distress Orientation/consciousness: patient oriented x3 HENMT Head: Yes normocephalic and Yes atraumatic Eyes General: appearance normal, both eyes and all related structures Pupils: Equal, round and reactive pupils present EOM: EOMs intact bilaterally Neck Neck: Yes supple and No lymphadenopathy Thyroid: Thyroid normal Lymphatic: no lymphadenopathy noted Resp Effort & Inspection: normal respiratory effort and able to speak in complete sentences Auscultation: clear to auscultation bilaterally Cardio Heart sounds: S1 normal heart sound present and S2 normal heart sound present GI Palpation (GI): Soft to palpation and nontender Auscultation: normal bowel sounds General: Yes no CVA tenderness Back/Spine/Pelvis Back: no CVA tenderness Skin General skin exam: elasticity normal and turgor normal Neuro General: patient oriented x3 and gait normal Cranial nerves: Yes Equal, round and reactive pupils present Speech: No Abnormal speech present Sensory Exam: No Sensory deficit (Neuro) Coordination: tandem gait normal and Romberg test negative Extrem General: Yes normal exam except as noted and No edema Assessment and Plan Assessment & Plan (1) Encounter for general adult medical examination with abnormal findings: Code(s): Z00.01 - Encounter for general adult medical examination with abnormal findings (2) Obesity due to excess calories: Code(s): E66.09 - Other obesity due to excess calories Qualifiers: Obesity classification: adult class 1 (BMI 30 - 34.9) Serious obesity comorbidity presence: without serious comorbidity Body mass index: BMI 33.0-33.9 Qualified Code(s): E66.09 - Other obesity due to excess calories; Z68.33 - Body mass index [BMI] 33.0-33.9, adult (3) Migraine: Code(s): G43.909 - Migraine, unspecified, not intractable, without status migrainosus Qualifiers: Intractability: not intractable Migraine type: unspecified Status migrainosus presence: without status migrainosus Qualified Code(s): G43.909 - Migraine, unspecified, not intractable, without status migrainosus (4) GERD (gastroesophageal reflux disease): Code(s): K21.9 - Gastro-esophageal reflux disease without esophagitis Qualifiers: Esophagitis presence: without esophagitis Qualified Code(s): K21.9 - Gastro-esophageal reflux disease without esophagitis (5) Environmental allergies: Code(s): Z91.09 - Other allergy status, other than to drugs and biological substances (6) Chronic constipation: Code(s): K59.09 - Other constipation (7) Paresthesia and pain of both upper extremities: Code(s): R20.2 - Paresthesia of skin; M79.601 - Pain in right arm; M79.602 - Pain in left arm Plan Patient is 27-year-old female came in today for her regular follow-up appointment I see that she is gaining weight she was weighing 181 lb May of last year and now she is 200 lb, discussed with the patient appointment to metabolic clinic offered She is seeing neurologist for migraine headache and is taking amitriptyline and sumatriptan through their office Currently patient is under workup for possibility of carpal tunnel syndrome right through neurology, as she is complaining of paresthesia Patient is also established with gastroenterology and is taking medication for acid reflux and constipation Pap smear breast exam through OBGYN , patient is requesting new referral Patient is taking no medication from this office Labs done in May reviewed with the patient I do not see any concerns we will skip labs this year Coding Level of Care Code Est Pt Prev Care [id number]([id number]) Diagnoses Encounter for general adult medical examination with abnormal findings Z00.01 Class 1 obesity due to excess calories without serious comorbidity with body mass index (BMI) of 33.0 to 33.9 in adult E66.09; Z68.33 Obesity classification: adult class 1 (BMI 30 - 34.9) Serious obesity comorbidity presence: without serious comorbidity Body mass index: BMI 33.0-33.9 Migraine without status migrainosus, not intractable, unspecified migraine type G43.909 Intractability: not intractable Migraine type: unspecified Status migrainosus presence: without status migrainosus Gastroesophageal reflux disease without esophagitis K21.9 Esophagitis presence: without esophagitis Environmental allergies Z91.09 Chronic constipation K59.09 Paresthesia and pain of both upper extremities R20.2; M79.601; M79.602 Additional Codes COLLEEN-7 Assessment Billing - COLLEEN-7 Assessment Tool: COLLEEN-7 Assessment 90858 ([id number])
== END 2023-04-28 11:47 | disposition home or self-care (01) ==
PROVIDERS: PCP Internal Medicine; Visit Provider Internal Medicine
DX: Z00.00 Encounter for general adult medical examination without abnormal findings (principal); E66.09 Other obesity due to excess calories; Z68.33 Body mass index [BMI] 33.0-33.9, adult; G43.909 Migraine, unspecified, not intractable, without status migrainosus; K21.9 Gastro-esophageal reflux disease without esophagitis; Z91.09 Other allergy status, other than to drugs and biological substances; K59.09 Other constipation; R20.2 Paresthesia of skin; M79.601 Pain in right arm; M79.602 Pain in left arm
CPT/HCPCS: 99395

== ENCOUNTER 2023-08-02 11:16 | Outpatient (AMB) | payer OTHER, SELFPAY ==
[2023-08-02 11:23] VITALS: BP 112/64; BMI 32.6
--- NOTE | 2023-08-02 11:23 | A.OFFVIS_ITS ---
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 first pap Proofer Apprentice Required: No Information Interpreted: non-clinical & clinical Funnel Setter: Funnel Setter Present (Aidyn) Allergies erythromycin base [ERYTHROMYCIN BASE] Allergy (Unknown, Verified 08/02/23 11:27) UNKNOWN escitalopram [From LEXAPRO] Adverse Reaction (Unknown, Verified 08/02/23 11:27) NAUSEA seasonal allergies Allergy (Unknown, Uncoded 08/02/23 11:27) Unknown Medication List - Last Reconciled 08/02/23 by Yani Juan CNM acetaminophen (Tylenol Extra Strength) 500 mg PO Q6H PRN amitriptyline 37.5 mg (1.5 x 25 mg) PO BEDTIME 90 days esomeprazole magnesium 40 mg (2 x 20 mg) PO DAILY 90 days levonorgestrel (Liletta) intrauterine loperamide (Imodium A-D) 2 mg PO Q4H PRN loratadine 10 mg PO DAILY magnesium oxide 400 mg PO BEDTIME 30 days ondansetron 4 mg PO Q8H PRN riboflavin (vitamin B2) 400 mg PO DAILY 30 days simethicone (Gas Relief (simethicone)) 125 mg PO BID-QID PRN 30 days sodium fluoride-pot nitrate 1.1-5 % PO sucralfate (Carafate) 10 mL PO BID 30 days sumatriptan succinate 50 - 100 mg (0.5 - 1 x 100 mg) PO Q2H PRN 30 days Is last menstrual period known: Yes Last menstrual period: 07/18/23 Post menopausal: No HPI 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 She says it has been a lot of years since she had a Pap smear she has a Liletta that [facility] an it was about 7 week that was done by suction and she says they inserted it right after the she said she used to have heavy periods that lasted 5-6 days but ever since the Liletta was put in it last longer sometimes up to 3 weeks but they are cloth edge singer. She says it is enough to have a little bit of flow. She would like the Liletta to be removed but it does not need to be today. She was thinking about letting her body go back to normal with no hormones she is actively working on weight loss following a 1400 calorie a day diet and she did a diet recall for me that sounded fairly balanced and she is doing exercise that includes working out and if she does not get to work out she does at least a 45 minute walk every day. She has a bus matron she is gett ing in the next few months and is working on weight loss for that and would not want to be when she gets . If she removed the Shanique her alternative method would be condoms and Plan B if it broke. She also has migraines and she sees a neurologist and GI difficulties and she sees a GI doctor for those. [facility] Medical History Gastritis Difficulty sleeping Shoulder pain, left Shoulder injury Itchy eyes Environmental allergies Nausea and vomiting Ovarian cyst Chronic constipation GERD (gastroesophageal reflux disease) Dyspepsia Upper abdominal pain Sprain of left ankle Tobacco use Seasonal allergies Insomnia ADHD Surgical History H/O colonoscopy Hx of wisdom tooth extraction Hx of endoscopy Family History (Updated 08/02/23 @ 11:30 by ANTONIO Harrison) Father History of diabetes mellitus Mother Mental health disorder Paternal Grandmother Breast cancer Brain cancer Paternal Uncle Colon cancer Other Cluster headaches Multiple sclerosis Social History Household Members: Significant Other Housing: House Alcohol intake: current Alcohol intake frequency: does not drink Patient Tobacco Use Status: Former Tobacco user Tobacco use type: Smokeless Tobacco e-Cigarette/Vaping Use: Currently Using Substance Use Type: Marijuana Current occupational status: employed 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 Cognitive needs: No Hearing needs: No Vision needs: No Female Reproductive History Menstrual Age of Menarche: 11 Duration of menses: other Date of last menstrual period: 07/18/23 control method: progestin IUCD Total pregnancies: 1 Ab induced: 1 History of abnormal pap smear: No Physical Exam Vital Signs: Last Vital Signs BP 112/64 08/02/23 11:23 BMI result Body Mass Index 32.6 Const General: healthy appearing, comfortable, no acute distress, well developed and alert Nutritional Appearance: average body habitus Orientation/consciousness: patient oriented x3 Limitations: no limitations HEENT Head: Yes normocephalic Neck Neck: Yes normal visual inspection Chest Chest palpation & inspection: normal inspection of the chest Breast/axilla inspection: normal inspection of the breasts and normal inspection of the axillae Breast/axilla palpation: normal palpation of the breasts and normal palpation of the axillae Resp Effort & Inspection: normal respiratory effort GI Inspection: Yes normal to inspection, No Abdominal wall edema and No distended Palpation (GI): Soft to palpation and nontender Other: External exam within normal limits vagina pink and moist cervix pink nulliparous smooth mobile nontender with Liletta string visible felt 2.5 cm. Uterus small midposition nontender not enlarged adnexa nontender good tone w Kegel. General: Yes bladder normal to palpation External Female Exam: normal external appearance and normal appearance of the urethra Speculum Exam - Vagina: normal appearance of the vagina, normal palpation and normal vaginal discharge Speculum Exam - Cervix: normal appearance of the cervix, normal palpation and nontender Bimanual exam- vagina & uterus: normal bimanual exam, normal palpation, uterine size normal, bladder normal to palpation, consistency normal, normal palpation, uterine mobility normal, uterine shape normal, No Cervical tenderness present, non-tender and no cervical motion tenderness Bimanual Exam- Adnexa, other: normal adnexae, no masses, normal and No adnexal tenderness Neuro General: patient oriented x3 Assessment & Plan Assessment & Plan (1) Obesity due to excess calories: Code(s): E66.09 - Other obesity due to excess calories Category: Medical Qualifiers: Obesity classification: adult class 1 (BMI 30 - 34.9) Serious obesity comorbidity presence: without serious comorbidity Body mass index: BMI 33.0- 33.9 Qualified Code(s): E66.09 - Other obesity due to excess calories; Z68.33 - Body mass index [BMI] 33.0-33.9, adult (2) IUD (intrauterine device) in place: Code(s): Z97.5 - Presence of (intrauterine) contraceptive device Category: Social Hx (3) Encounter for screening examination for sexually transmitted disease: Code(s): Z11.3 - Encounter for screening for infections with a predominantly sexual mode of transmission Category: Medical Plan -----Discussed in this visit the following: healthy balanced diet, regular and consistent exercise, getting recommended health screens, doing the best she can for her particular health concerns, kegel exercises, pap smear screening and followup recommendations, mammography screening and SBE, normal changes in cycles in her life stage--- .Discussed in general terms the challenges of obesity and challenges for her health and efforts she is engaging in to manage this including dietary changes water intake attention to sleep inclusion of a regular exercise have it and dealing with the may need stressors of life that can contribute to obesity in general. Encouraged her to continue in all have her best efforts. -discussed issues with her Liletta and control options. She says she was told the Liletta could last for 7 years. Discussed that it can be removed when she decides she wants it out. Discussed taking a multivitamin daily in preparation for future . She already takes 1. She is motivated to get as healthy as she can. I offered testing for STIs via blood work and noted that there was orders in her system for fasting blood work and I informed her of so she can get them all done together she has on the portal can get results that way but we will notify her for anything positive. She can schedule the Liletta removal whenever she wishes. Orders: Orders Hepatitis B Surface Antigen Today E66.09 - Other obesity due to excess calories, Z11.3 - Encounter for screening for infections with a predominantly sexual mode of transmission, Z68.33 - Body mass index [BMI] 33.0-33.9, adult, Z97.5 - Presence of (intrauterine) contraceptive device Hepatitis C Antibody Today E66.09 - Other obesity due to excess calories, Z11.3 - Encounter for screening for infections with a predominantly sexual mode of tr ansmission, Z68.33 - Body mass index [BMI] 33.0-33.9, adult, Z97.5 - Presence of (intrauterine) contraceptive device HIV Ab/Ag Today E66.09 - Other obesity due to excess calories, Z11.3 - Encounter for screening for infections with a predominantly sexual mode of transmission, Z68.33 - Body mass index [BMI] 33.0-33.9, adult, Z97.5 - Presence of (intrauterine) contraceptive device Syphilis Screen Today E66.09 - Other obesity due to excess calories, Z11.3 - Encounter for screening for infections with a predominantly sexual mode of transmission, Z68.33 - Body mass index [BMI] 33.0-33.9, adult, Z97.5 - Presence of (intrauterine) contraceptive device Coding Level of Care Code [facility] Care [id number]([id number] Diagnoses Class 1 obesity due to excess calories without serious comorbidity with body mass index (BMI) of 33.0 to 33.9 in adult E66.09; Z68.33 Obesity classification: adult class 1 (BMI 30 - 34.9) Serious obesity comorbidity presence: without serious comorbidity Body mass index: BMI 33.0-33.9 IUD (intrauterine device) in place Z97.5 Encounter for screening examination for sexually transmitted disease Z11.3
== END 2023-08-02 15:47 | disposition home or self-care (01) ==
LOC: HO.HWSM 11:16
PROVIDERS: PCP Internal Medicine; Visit Provider Advanced Practice Midwife
DX: Z01.419 Encounter for gynecological examination (general) (routine) without abnormal findings (principal); E66.09 Other obesity due to excess calories; Z68.33 Body mass index [BMI] 33.0-33.9, adult
CPT/HCPCS: 99385

== ENCOUNTER 2023-08-02 11:16 | Outpatient (REF) | payer OTHER, SELFPAY ==
[2023-08-03 10:23] LABS: CT PCR NOT DETECTED (Not Detect.); NG PCR NOT DETECTED (Not Detect.)
[2023-08-03 10:35] LABS: Bacterial Vaginosis PCR NEGATIVE (Negative); Candida Group PCR DETECTED (Not Detect); Candida glab krusei PCR NOT DETECTED (Not Detect); Trichomonas vaginalis PCR NOT DETECTED (Not Detect)
== END 2023-08-02 11:17 | disposition home or self-care (01) ==
LOC: HO.LNP 11:16
PROVIDERS: PCP Internal Medicine; Visit Provider Advanced Practice Midwife
DX: Z12.4 Encounter for screening for malignant neoplasm of cervix (principal); E66.09 Other obesity due to excess calories; Z68.33 Body mass index [BMI] 33.0-33.9, adult; Z97.5 Presence of (intrauterine) contraceptive device; Z11.3 Encounter for screening for infections with a predominantly sexual mode of transmission
CPT/HCPCS: 0352U; 0353U; 88142; 99385

== ENCOUNTER 2023-08-06 09:27 | Outpatient (REF) | payer OTHER, SELFPAY ==
[2023-08-06 12:22] LABS: HBsAGNum1 0.24 S/CO (0.00-0.99); HIV AB/AG Nonreactive (Nonreactive); HIV Num 1 0.05 S/CO (0.00-0.99); Hepatitis B Surface Antigen Negative (Negative); Syphilis Screen Nonreactive (Nonreactive); ~HepC Num1 0.13 S/CO (0.00-0.79); ~Hepatitis C Antibody Nonreactive (Nonreactive)
== END 2023-08-06 09:28 | disposition home or self-care (01) ==
LOC: HO.HMGCLDS 09:27
PROVIDERS: PCP Internal Medicine; Referring Provider Advanced Practice Midwife; Visit Provider Nurse Practitioner Family
DX: Z11.3 Encounter for screening for infections with a predominantly sexual mode of transmission (principal); Z68.33 Body mass index [BMI] 33.0-33.9, adult; E66.09 Other obesity due to excess calories; Z97.5 Presence of (intrauterine) contraceptive device
CPT/HCPCS: 36415; 86780; 86803; 87340; 87389

== ENCOUNTER 2023-11-24 08:53 | Outpatient (AMB) | payer OTHER, SELFPAY ==
--- NOTE | 2023-11-24 09:14 | AM.OFFWIN_ITS ---
Intake Vital Signs 11/24/23 09:15 Height 5 ft 5 in Weight 197 lb BMI 32.8 BP 102/68 Blood Pressure Location Rt brachial Position Sitting Pulse 91 Pulse Source Pulse Oximeter Pulse Oximetry (%) 97 Oxygen Delivery Method Room Air Intake Visit Reasons: EP-head concussion Intake Note: Patient here because last Wednesday she was moving something down to her basement and smacked her head into the cement wall and since then she has been very tired, lightheaded, dizzy and slight nausea. Patient Tobacco Use Status: Former Tobacco user Allergies erythromycin base [ERYTHROMYCIN BASE] Allergy (Unknown, Verified 11/24/23 09:16) UNKNOWN escitalopram [From LEXAPRO] Adverse Reaction (Unknown, Verified 11/24/23 09:16) NAUSEA seasonal allergies Allergy (Unknown, Uncoded 11/24/23 09:16) Unknown Do you need a note to return to daycare/school/sports/work: Yes HPI HPI Comments History of Present Illness Details Patient is a 28-year-old female complaining of 8 days of feeling tired, dizzy like she is off balance, some lightheadedness, slight nausea, sensitivity to light and it headache that comes and goes since hitting the left side of her head on her basement wall. She states she was going down to her basement but tripped on a step and hit the left side of her head up against a cement wall. She denies any loss of consciousness, no vomiting, no sound sensitivity or changes in her vision. She states she has just been trying to sleep a lot to feel better. [facility] Medical History Gastritis Difficulty sleeping Shoulder pain, left Shoulder injury Itchy eyes Environmental allergies Nausea and vomiting Ovarian cyst Chronic constipation GERD (gastroesophageal reflux disease) Dyspepsia Upper abdominal pain Sprain of left ankle Tobacco use Seasonal allergies Insomnia ADHD Surgical History H/O colonoscopy Hx of wisdom tooth extraction Hx of endoscopy Family History (Updated 08/02/23 @ 11:30 by ANTONIO Harrison) Father History of diabetes mellitus Mother Mental health disorder Paternal Grandmother Breast cancer Brain cancer Paternal Uncle Colon cancer Other Cluster headaches Multiple sclerosis Social History Household Members: Significant Other Housing: House Alcohol intake: current Alcohol intake frequency: does not drink Patient Tobacco Use Status: Former Tobacco user Tobacco use type: Smokeless Tobacco e-Cigarette/Vaping Use: Currently Using Substance Use Type: Marijuana Current occupational status: employed 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 Cognitive needs: No Hearing needs: No Vision needs: No Female Reproductive History Menstrual Age of Menarche: 11 Review of Systems Const All systems reviewed & are unremarkable except as noted in HPI and below Neuro Denies Abnormal speech present and Denies Sensory deficit (Neuro) Physical Exam Vital Signs: Last Vital Signs Pulse 91 11/24/23 09:15 BP 102/68 11/24/23 09:15 Pulse Ox 97 11/24/23 09:15 Oxygen Delivery Method Room Air 11/24/23 09:15 BMI result Body Mass Index 32.8 Const General: cooperative, healthy appearing, comfortable, no acute distress and well developed Orientation/consciousness: patient oriented x3 Limitations: no limitations HEENT Head: Yes normal to inspection Ears: hearing grossly normal bilaterally General nose exam: Normal external nose present Face and sinus: Yes normal facial exam Eyes General: appearance normal, both eyes and all related structures Neck Neck: Yes normal visual inspection and Yes full ROM Resp Effort & Inspection: normal respiratory effort and able to speak in complete sentences Auscultation: clear to auscultation bilaterally Cardio Rate: regular rate Rhythm: regular rhythm Heart sounds: normal S1 and S2 GI Inspection: Yes normal to inspection Palpation (GI): Soft to palpation and nontender Skin General skin exam: no rashes or lesions noted Neuro General: patient oriented x3 and gait normal Cranial nerves: Yes CN's II-XII intact bilaterally Cognition (Neuro): normal cognition Speech: No Abnormal speech present Gait exam (Neuro): Normal gait present Motor exam (neuro): 5/5 motor strength present throughout Sensory Exam: No Sensory deficit (Neuro) Extrem General: Yes normal to inspection Assessment & Plan Assessment & Plan (1) Concussion: Code(s): S06.0XAA - Concussion with loss of consciousness status unknown, initial encounter Qualifiers: Encounter type: initial encounter Loss of consciousness presence/duration: without LOC Qualified Code(s): S06.0X0A - Concussion without loss of consciousness, initial encounter Plan: Patient likely has a mild concussion, recommended brain rest and explained to her what that means. Gave her a work note to cover her for 5 days this week. Gave her red flag warning signs and when to go to the emergency department. Plan See above Coding Level of Care Code Est Pt Level 3 (28051) Diagnoses Concussion without loss of consciousness, initial encounter S06.0X0A Encounter type: initial encounter Loss of consciousness presence/duration: without LOC
[2023-11-24 09:15] VITALS: BP 102/68; PULSE 91; O2SAT 97; BMI 32.8
== END 2023-11-24 12:49 | disposition home or self-care (01) ==
PROVIDERS: PCP Internal Medicine; Visit Provider Physician Assistant
DX: S06.0X0A Concussion without loss of consciousness, initial encounter (principal)

== ENCOUNTER → 2023-11-24 08:53 | Outpatient (BNVA) | payer OTHER, SELFPAY | PROVIDERS: PCP Internal Medicine | DX: S06.0X0A Concussion without loss of consciousness, initial encounter (principal) | CPT/HCPCS: 99212 ==

== ENCOUNTER 2024-12-22 10:54 | Emergency (ER) | payer OTHER, SELFPAY ==
--- NOTE | ~2024-12-22 | XR_ITS ---
EXAMINATION: XR CHEST CLINICAL INFORMATION: Intermittent chest pain COMPARISON: Previous chest x-ray October 2020 TECHNIQUE: Frontal view of the chest was obtained. FINDINGS: No significant abnormality is noted involving the heart, lungs, mediastinum, bony thorax or soft tissues. XR/XR chest 1V IMPRESSION: Unremarkable examination. Electronically signed by: Mackenzie Almanza MD 12/22/2024 03:14 PM EDT RP
--- NOTE | ~2024-12-22 | CT_ITS ---
EXAMINATION: CT HEAD WITHOUT CONTRAST CLINICAL INFORMATION: Dizziness, balance issues. COMPARISON: 12/29/2019. TECHNIQUE: Contiguous axial imaging was performed from the skull base to vertex without intravenous administration of contrast. This CT examination was performed using dose optimization techniques as appropriate, variously including the following: *Automated exposure control *Adjustment of mA and/or kV according to patient size (this includes techniques or standardized protocols for targeted exams where dose is matched to indication/reason for exam; i.e. extremities or head) *Use of iterative reconstruction technique FINDINGS: There is no evidence of intracranial hemorrhage or extra-axial fluid collection. There is no mass effect, or edema. No CT evidence of acute territorial infarct. Ventricles, sulci, and cisterns are normal in size and configuration for patient age. No hydrocephalus. No midline shift. Negative hyperdense MCA sign. Negative insular ribbon sign. No white matter attenuation abnormalities. Normal pituitary. Globes and orbital contents image normally. No extracranial soft tissue abnormalities. The paranasal sinuses, mastoid air cells, and tympanic cavities are normally aerated. No suspicious bony abnormalities. There are no acute fractures evident. CT/CT head/brain wo IV con IMPRESSION: No acute intracranial abnormality. Normal examination. Electronically signed by: Yazan Garcia MD 12/22/2024 03:04 PM EDT
[2024-12-22 11:05] VITALS: BP 127/92; PULSE 84; RESP 18; TEMP 36.7; O2SAT 100; BMI 29.2
--- NOTE | 2024-12-22 11:07 | ED_ITS ---
HPI - General Adult General Chief complaint: Neuro Symptoms/Deficit Stated complaint: Dizziness Headache Time Seen by Provider: 12/22/24 13:22 Source: patient, RN notes reviewed and old records reviewed Mode of arrival: ambulatory History of Present Illness ED Provider: Katie Pendleton PA-C HPI narrative: 29-year-old female with a past medical history of GERD, ADHD, gastritis, presenting to the ED complaining of generalized fatigue, intermittent headaches & dizziness described as lightheaded and feeling off balance x 1 week. Also reports episode of wavy vision to right eye last week, denies vision changes at present. Also reports intermittent left-sided chest pain. Denies shortness of breath, cough, abdominal pain, nausea/vomiting, vision loss, focal weakness, numbness/tingling. Related Data Home Medications ?Medication ?Instructions ?Recorded ?Confirmed levonorgestrel 20.4 mcg/24 hr (up intrauterine 4 08/02/23 to 8 yrs) 52 mg intrauterine device (Liletta) sodium fluoride 1.1 %-potassium PO 08/02/23 08/02/23 nitrate 5 % dental paste Previous Rx's ?Medication ?Instructions ?Recorded acetaminophen 500 mg tablet 500 mg PO Q6H PRN pain or fever 07/23/20 (Tylenol Extra Strength) #20 tabs loratadine 10 mg tablet 10 mg PO DAILY #90 tabs 03/01 ondansetron 4 mg disintegrating 4 mg PO Q8H PRN nausea and 01/28/22 tablet vomiting #14 tabs simethicone 125 mg capsule (Gas 125 mg PO BID-QID PRN abdominal 06/11/22 Relief (simethicone)) distention 30 days #90 caps sumatriptan succinate 100 mg tablet 50 - 100 mg (0.5 - 1 x 100 mg) PO 07/03/22 Q2H PRN migraine headache 30 days #12 tabs magnesium oxide 400 mg (241.3 mg 400 mg PO BEDTIME 30 days #30 tabs 07/08/22 magnesium) tablet riboflavin (vitamin B2) 400 mg 400 mg PO DAILY 30 days #30 tabs 07/08/22 tablet esomeprazole magnesium 20 mg 40 mg (2 x 20 mg) PO ELVA Y 90 days 09/23/22 capsule,delayed release #180 caps amitriptyline 25 mg tablet 37.5 mg (1.5 x 25 mg) PO BE DTIME 07/19/23 90 days #135 tabs Allergies Allergy/AdvReac Type Severity Reaction Status Date / Time erythromycin base Allergy Unknown UNKNOWN Verified 12/22/24 11:11 (ERYTHROMYCIN BASE) escitalopram (From LEXAPRO) AdvReac Unknown NAUSEA Verified 12/22/24 11:11 seasonal allergies Allergy Unknown Unknown Uncoded 11/24/23 09:16 Review of Systems 2 Review of Systems: Yes all other systems are reviewed and are negative Constitutional: Constitutional: Reports as per HPI Neurologic: Denies Sensory deficit (Neuro) [facility] Past Medical History Attestation statement: The following information was validated with the patient. Source: old records reviewed Medical History Gastritis Difficulty sleeping Shoulder pain, left Shoulder injury Itchy eyes Environmental allergies Nausea and vomiting Ovarian cyst Chronic constipation GERD (gastroesophageal reflux disease) Dyspepsia Upper abdominal pain Sprain of left ankle Tobacco use Seasonal allergies Insomnia ADHD Surgical History H/O colonoscopy Hx of wisdom tooth extraction Hx of endoscopy Family History Family History Father History of diabetes mellitus Mother Mental health disorder Paternal Grandmother Breast cancer Brain cancer Paternal Uncle Colon cancer Other Cluster headaches Multiple sclerosis Social History Social History Household Members: Significant Other Housing: House Alcohol intake: current Alcohol intake frequency: does not drink Patient Tobacco Use Status: Former Tobacco user Tobacco use type: Smokeless Tobacco e-Cigarette/Vaping Use: Currently Using Substance Use Type: Marijuana Advance Directives: No Advance Directives Information Provided: Yes Current occupational status: employed 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 Cognitive needs: No Hearing needs: No Vision needs: No Physical Exam ED Vital Signs: Vital Signs - 24 hr 12/22/24 11:05 Temperature 98.0 F Pulse Rate 84 Respiratory Rate 18 Blood Pressure 127/92 H Pulse Oximetry 100 Oxygen Delivery Method Room Air BMI result Body Mass Index 29.2 Const General: cooperative, healthy appearing and no acute distress Orientation/consciousness: patient oriented x3 Limitations: no limitations HENMT Head: Yes normal to inspection and Yes atraumatic Ears: hearing grossly normal bilaterally General nose exam: Normal external nose present Face and sinus: Yes normal facial exam Eyes General: appearance normal, both eyes and all related structures Pupils: Equal, round and reactive pupils present EOM: EOMs intact bilaterally Neck Neck: Yes normal visual inspection and Yes no meningeal signs Resp Effort & Inspection: normal respiratory effort and no respiratory distress Auscultation: clear to auscultation bilaterally Cardio Rate: regular rate Heart sounds: S1 normal heart sound present and S2 normal heart sound present GI Inspection: Yes normal to inspection Palpation (GI): Soft to palpation, nontender, no guarding and not rigid General: Yes no CVA tenderness Back/Spine/Pelvis Back: no CVA tenderness Skin Rashes: no rashes Wounds: no wounds Neuro General: patient oriented x3, gait normal, tone normal, moves all extremities, no meningeal signs, no focal motor deficits and CN's II-XI intact bilaterally Cranial nerves: Yes CN's II-XII intact bilaterally, Yes Equal, round and reactive pupils present and Yes Bilaterally intact EOM present Cognition (Neuro): normal cognition Gait exam (Neuro): Normal gait present Motor exam (neuro): 5/5 motor strength present throughout, Pronator motor function not present and no tremor noted Sensory Exam: No Sensory deficit (Neuro) Coordination: [id number] test normal Romberg Test: Negative Extrem General: Yes normal to inspection Course Course Course Narrative: Tatiana Mamadoualondra [employer] AGENT 12/22 1107 This is a rapid medical exam. Deferred additional HPI, ROS, PE to primary provider. 29 yo female here with 1 week of headaches, dizziness, visuial changes, fatigue. Also some intermittent CP when laying down in bed at night. Will obtain labs, UA, ur preg, EKG VSS -1500--labs unremarkable including negative troponin -UA with trace blood/RBCs. No infection 1600--CT head/brain wo IV con IMPRESSION: No acute intracranial abnormality. Normal examination. XR chest 1V IMPRESSION: Unremarkable examination. Results discussed with patient including worrisome signs and symptoms and strict return precautions, and when to return to the emergency department. They verbalized understanding and feel safe for discharge at this time. Medical Decision Making Medical Decision Making MDM Narrative: 29-year-old female with a past medical history of GERD, ADHD, gastritis, presenting to the ED complaining of generalized fatigue, intermittent headaches & dizziness described as lightheaded and feeling off balance x 1 week. Also reports episode of wavy vision to right eye last week, & intermittent left- sided chest pain. On exam vital signs stable, NAD, nontoxic appearing, no focal neuro deficits. No ataxia. Ambulating with steady gait. Concern for viral illness vs metabolic abnormalities. Rule out infectious etiology. Symptoms atypical for ACS/PE or SAH, CVA/TIA. Low suspicion for retinal detachment with resolved symptoms. Plan: EKG, labs, UA/, head CT, CXR, orthostatics, re-evaluate Please refer to course for remaining clinical decision making, interpretation of labs/imaging results, and discussions with consultants and/or family members. Differential Diagnosis Differential Diagnoses: The differential diagnosis associated with the presentation includes As above Admission/Observation Consideration of admission/observation: Escalation of care including admission/observation considered Lab Data MDM Lab Attestation statement: I reviewed the patient's lab results. 12/22/24 11:32 12/22/24 11:32 Labs: Lab Results 12/22/24 12/22/24 12/22/24 Range/Units 11:32 11:44 14:38 WBC 8.9 (4.8-10.8) X10*3/uL RBC 4.72 (4.20-5.50) X10*6/uL Hgb 13.5 (12.0-16.0) g/dl Hct 40.6 (37.0-47.0) % MCV 86.0 (80.0-98.0) fL MCH 28.6 (27.0-33.0) pg MCHC 33.3 (31.0-35.0) g/dl RDW 12.6 (11.0-16.0) % Plt Count 506 H (160-400) X10*3/uL MPV 9.4 (9.4-12.3) fL Immature Gran % (Auto) 0.3 (0.0-0.4) % Neut % (Auto) 67.8 (45-73) % Lymph % (Auto) 23.6 (20-40) % Darke % (Auto) 6.2 (2-11) % Eos % (Auto) 1.0 (0-4) % Baso % (Auto) 1.1 (0-2) % Lymph # (Auto) 2.1 (1.2-4.9) X10*3/uL Darke # (Auto) 0.6 (0.1-1.2) X10*3/uL Eos # (Auto) 0.1 (0.0-0.4) X10*3/uL Baso # (Auto) 0.1 (0.0-0.2) X10*3/uL Abs Immat Gran (auto) 0.03 (0.00-0.03) X10*3/uL Absolute Neuts (auto) 6.0 (2.0-8.3) x10*3/uL Absolute Nucleated RBC 0.000 (0.0-0.012) X10*3/uL Nucleated RBC % (auto) 0.0 (0.0-0.2) /100WBC Sodium 141 (135-145) mmol/L Potassium 3.8 (3.3-5.1) mmol/L Chloride 108 (96-108) mmol/L Carbon Dioxide 27 (22-29) mmol/L Anion Gap 10 L (12-20) BUN 10 (9-16) mg/dL Creatinine 0.77 (0.5-1.4) mg/dL Estim Creat Clear Calc 112.3 Estimated GFR > 60 Random Glucose 86 (60-115) mg/dL Calcium 9.4 (8.4-10.2) mg/dL Magnesium 2.0 (1.6-2.6) mg/dL Total Bilirubin 0.4 (0.0-1.0) mg/dL Direct Bilirubin 0.2 (0.0-0.5) mg/dL AST 19 (5-31) U/L ALT 19 (0-31) U/L Alkaline Phosphatase 57 (39-117) U/L Troponin I High Sens < 2.7 (<3.5-17.0) ng/L Total Protein 7.2 (6.5-8.0) g/dL Albumin 4.7 (3.5-5.0) g/dL Urine Color Yellow Urine Appearance Clear Urine pH 7.5 (5.0-9.0) Ur Specific [place] 1.010 (1.005-1.025) Urine Protein Negative (Neg-Trace) mg/dL Urine Glucose (UA) Negative (Negative) mg/dL Urine Ketones Negative (Negative) mg/dL Urine Blood Trace H (Negative) Urine Nitrite Negative (Negative) Ur Leukocyte Esterase Negative (Negative) Urine RBC 3-5 H (0-2) /HPF Urine WBC 0-5 (0-5) /HPF Ur Squamous Epith Cells 0-2 (0-2) /HPF Urine Bacteria None Seen (None Seen) Hyaline Casts 0-2 (0-2) /LPF Urine Test NEGATIVE (NEGATIVE) COVID-19 ([facility]) Negative (Negative) COVID-19 Clin Com See Note Influenza Type A ([facility]) Negative (Negative) Influenza Type B (ANANT) Negative (Negative) Influenza A & B Note See Note Independent Interpretation I performed an independent interpretation of an: EKG (My interpretation: EKG normal sinus rhythm rate of 84. QRS 94. PVCs no longer present when compared to prior. No STEMI), Plain X-Ray and CT Scan Radiology Impression Discussion of test interpretation with radiology: I have reviewed the radiologist's reading. External Record Review External record reviewed: Inpatient record, Office record, Outpatient record, Prior outpatient labs, Prior outpatient radiology, Primary care record and Outside ED record Tests considered The following testing was considered but not selected: As above Chronic Conditions Patient?s care impacted by: Other Discharge Plan Discharge Clinical Impression: Atypical chest pain, Dizziness Patient Disposition: Home, Self-Care Instructions: Chest Pain (DC), Lightheadedness (ED) Additional Instructions: Your blood work and imaging studies are reassuring Please follow up with your primary care doctor If her symptoms persist or worsens/becomes more constant, you have shortness breath, fever, passing out episodes, continued to feel off balance return to the emergency department Prescriptions: No Action loratadine 10 mg tablet 10 mg PO DAILY Qty: 90 0RF magnesium oxide 400 mg (241.3 mg magnesium) tablet 400 mg PO BEDTIME 30 Days Qty: 30 6RF Rx Instructions: may hold for loose stools riboflavin (vitamin B2) 400 mg tablet 400 mg PO DAILY 30 Days Qty: 30 6RF esomeprazole magnesium 20 mg capsule,delayed release(DR/EC) 40 mg PO DAILY 90 Days Qty: 180 1RF amitriptyline 25 mg tablet 37.5 mg PO BEDTIME 90 Days Qty: 135 1RF acetaminophen [Tylenol Extra Strength] 500 mg tablet 500 mg PO Q6H PRN (Reason: pain or fever) Qty: 20 0RF ondansetron 4 mg tablet,disintegrating 4 mg PO Q8H PRN (Reason: nausea and vomiting) Qty: 14 0RF sumatriptan succinate 100 mg tablet 50 - 100 mg PO Q2H PRN (Reason: migraine headache) 30 Days Qty: 12 6RF Rx Instructions: max 2 tabs per day or 6 tabs per week (may take w/ Tylenol or Ibuprofen) Liletta 20.4 mcg/24 hrs (8 yrs) 52 mg intrauterine device intrauterine sodium fluoride-pot nitrate 1.1-5 % paste PO simethicone [Gas Relief (simethicone)] 125 mg capsule 125 mg PO BID-QID PRN (Reason: abdominal distention) 30 Days Qty: 90 1RF Referrals: Gary White MD [Primary Care Provider, Internal Medicine] - 3 days Print Language: Dominican
--- NOTE | 2024-12-22 11:11 | ECG_ITS ---
Test Reason : neuro symptoms Blood Pressure : */* mmHG Vent. Rate : 84 BPM Atrial Rate : 84 BPM P-R Int : 158 ms QRS Dur : 94 ms QT Int : 364 ms P-R-T Axes : 68 36 32 degrees QTcB Int : 430 ms Normal sinus rhythm Normal ECG When compared with ECG of 29-Dec-2019 15:56, Premature ventricular complexes are no longer Present Referred By: Tatiana Ruiz Electronically Signed By: VICTORINA MENDIETA MD
[2024-12-22 11:38] LABS: MANUAL DIFF FLAG NO
[2024-12-22 11:56] LABS: Hematocrit 40.6 % (37.0-47.0); Hemoglobin 13.5 g/dl (12.0-16.0); Imm Gran Abs Auto 0.03 X10*3/uL (0.00-0.03); Imm Gran Pct Auto 0.3 % (0.0-0.4); Lymphocytes Absolute Auto 2.1 X10*3/uL (1.2-4.9); Mean Corpuscular HGB Conc 33.3 g/dl (31.0-35.0); Mean Corpuscular Hemoglobin 28.6 pg (27.0-33.0); Mean Corpuscular Volume 86.0 fL (80.0-98.0); NRBC Abs Auto 0.000 X10*3/uL (0.0-0.012); NRBC Pct Auto 0.0 /100WBC (0.0-0.2); Platelet Count 506 X10*3/uL (160-400); Red Blood Count 4.72 X10*6/uL (4.20-5.50); White Blood Count 8.9 X10*3/uL (4.8-10.8)
[2024-12-22 12:01] LABS: Appearance Urine Clear; Glucose Urine UA Negative (Negative); PH 7.5 (5.0-9.0); Specific Gravity - Urine 1.010 (1.005-1.025); UMIC TRIGGER UACC YES
[2024-12-22 12:02] LABS: UPreg QC Valid YES
[2024-12-22 12:02] LABS: Alanine Aminotransferase 19 U/L (0-31); Albumin Level 4.7 g/dL (3.5-5.0); Alkaline Phosphatase 57 U/L (39-117); Anion Gap 10 (12-20); Aspartate Amino Transferase 19 U/L (5-31); Blood Urea Nitrogen 10 mg/dL (9-16); Calcium 9.4 mg/dL (8.4-10.2); Carbon Dioxide 27 mmol/L (22-29); Chloride 108 mmol/L (96-108); Creatinine Clr Calc Pharmacy 112.3; Estimated Glomerular Filt Rate > 60; Potassium 3.8 mmol/L (3.3-5.1); Sodium 141 mmol/L (135-145); Total Protein 7.2 g/dL (6.5-8.0)
[2024-12-22 12:10] LABS: Troponin-I High Sensitivity < 2.7 ng/L (<3.5-17.0)
[2024-12-22 13:58] LABS: Magnesium 2.0 mg/dL (1.6-2.6)
[2024-12-22 15:10] LABS: IDNOW Serial# 58CA691E; Influenza B2 Negative (Negative)
--- OUTSIDE RECORDS SUMMARY | 2024-12-22 15:22 | XMS_ITS | Clinical Summary ---
Author Organization [employer] Address [address] [place] [address] Care Team Providers Care Customer Servicer Name Role Phone Unavailable Primary Care Provider Unavailabl e Allergies Active Allergy Reactions Criticality Noted Date Comments Penicillins Hives 07/15/2020 Medications loratadine-pseu doephedrine ER (Claritin-D 24 Hour) 10-240 MG 24 hr tablet Take 1 tablet by mouth at bed time. 9 Active Omeprazole Magnesium (PriLOSEC) 10 MG pack Take 2 packets by mouth at bed time. Active polyethylene glycol, PEG, 3350 (MiraLax) 17 GM/SCOOP powder take (17G) by oral route every day mixed with 8 oz. water, juice, soda, coffee or tea Active traZODone (Desyrel) 50 MG tablet Take 1 tablet by mouth at bed time. Active amitriptyline (Elavil) 25 MG tablet TAKE 1 1/2 TABLETS BY MOUTH DAILY AT BEDTIME FOR 90 DAYS Active esomeprazole (NexIUM) [address] capsule TAKE 2 CAPS (40MG) BY MOUTH ONCE DAILY. Active Sod Fluoride-Potass ium Nitrate 1.1-5 % pasteIndication s:Dental caries [place] teeth for 2 minutes, morning and night. Spit, do not rinse. Do not eat or drink anything for 30 minutes following brushing. 112 g 3 4 Active Additional Information Patient not taking.Reported on 03/13/2024 azithromycin (Zithromax) 250 MG tabletIndicatio ns:Dental abscess Take 2 tabs (500mg) on Day 1, and one tab (250mg) on days 2-5 6 tablet 5 Active ibuprofen 600 MG tabletIndicatio ns:Dental abscess Take 1 tablet (600 mg) by mouth every 6 (six) hours if needed for mild pain for up to 20 doses. 20 tablet Active Active Problems Problem Noted Date Diagnosed Date Gastritis 04/07/2022 Gastroesophageal reflux disease 04/07/2022 Insomnia 04/07/2022 Social History Tobacco Use Types Packs/Day Years Used Date Smoking Tobacco: Never Passive Smoke Exposure: Never Smokeless Tobacco: Never Tobacco Cessation:Counseling Given: Not Answered Alcohol Use Standard Drinks/Week Comments Never 0 (1 standard drink = 0.6 oz pur e alcohol) Comments Unknown Sex and Gender Information Value Date Recorded Sex Assigned at Female 12/29/2021 10:35 AM EDT Legal Sex Female 10:35 AM EDT Gender Identity Female 12/29/2021 10:35 AM EDT Sexual Orientation Straight 12/29/2021 10 :35 AM EDT Last Filed Vital Signs Vital Sign Reading Time Taken Comments Blood Pressure 116/58 11/04/2023 9:49 AM EDT Pulse 68 05/05/2022 3:07 PM EST Temperature - - Respiratory Rate - - Oxygen Saturation - - Inhaled Oxygen Concentration - - Weight - - Height - - Body Mass Index - - Plan of Treatment Health Maintenance Due Date Last Done Comments Depression Screening 1995 HIV Screening 1995 SDOH Screening 1995 Disability Screening 1995 Alcohol/Substance Use Screening 2007 Family Planning (PISQ) 07/28/2010 HPV Vaccines (1 - 3-dose series) 07/28/2010 Hepatitis C Screening 07/28/2013 Hepatitis B Vaccines (1 of 3 - 19+ 3-dose series) 07/28/2014 Pap Smear 07/28/2016 Dental Oral Exam 12/23/2023 06/22/2023 Dental Prophylaxis 12/24/2023 06/23/2023, 05/05/2022 COVID-19 Vaccine (3 - 2024-2 6 season) 2024 01/30/2021, 01/02/2021 Influenza Vaccine (#1) 2024 12/04/2016 Tobacco Screening 12/07/2024 12/08/2023 DTaP/Tdap/Td Vaccines (2 - T d or Tdap) 03/07/2025 03/07/2015 Dental X-Ray: Bitewings 03/11/2025 03/10/19 25, 06/22/2023, 05/05/2022 Dental X-Ray: Full Mouth 06/23/2026 06/23/2023 Zoster Vaccines (1 of 2) 07/28/2045 RSV Patients and Patients Aged 60 years or older (1 - 1-dose 75+ series) 07/28/2070 HIB Vaccines Aged Out No longer eligi ble based on patient's age to complete this topic Hepatitis A Vaccines Aged Out No long er eligible based on patient's age to complete this topic IPV Vaccines Aged Out No longer eligi ble based on patient's age to complete this topic Meningococcal B Vaccine Aged Out No l onger eligible based on patient's age to complete this topic Meningococcal Vaccine Aged Out No lulu zoraida eligible based on patient's age to complete this topic Pneumococcal Vaccine: Pediatrics (0 to 5 Years) and At-Risk Patients (6 to 49) Years Aged Out No longer eligible b ased on patient's age to complete this topic RSV under 20 months Aged Out No longe r eligible based on patient's age to complete this topic Rotavirus Vaccines Aged Out No longer eligible based on patient's age to complete this topic Procedures Procedure Name Priority Date/Time Associated Diagnosis Comments BITEWING - SINGLE RADIOGRAPHIC IMAGE Routine 03/10/2024 11:30 AM EST Dental abscess PROPHYLAXIS - ADULT Routine 06/23/2023 1 0:30 AM EDT Gingivitis PANORAMIC RADIOGRAPHIC IMAGE Routine 06/23/2023 10:30 AM EDT Gingivitis PERIODIC ORAL EVALUATION - ESTABLISHED PATIENT Routine 06/22/2023 11:00 AM EDT Dental caries Gingivitis from Last 3 Months or Most Recently Relevant to Health Maintenance Insurance [facility] MEDICAID STAND ADULT
--- OUTSIDE RECORDS SUMMARY | 2024-12-22 15:22 | XMS_ITS | Data Portability ---
Author Organization [facility] [employer] [facility], [address] Address [address] [place] [id number] Care Team Providers Care Retail Supervisor Name Role Phone THERESA FISHER Primary Care Provider Assessment No assessment recorded. Plan of Treatment Reminders Order Date Submit Date Provider Last Modified By Organization Details Last Modified Time Details Appointments None recorded. Lab None recorded. Referral None recorded. Procedures None recorded. Surgeries None recorded. Imaging XR, lumbosacral spine, 2 or 3 view - Fell down steps and landed on her tailbone. Sore up the spine. No bruising. Tenderness directly over L5. No sacrum and coccyx pain. Able to ambulate. No radiculopat hy. Full sensation and strength. 2022 023 [facility], [address] [place] [address], [address], 16:11:17 Medication Orders cyclobenzap rine 10 mg tablet 2022 023 [id number], [address] [place], [address], 3 14:42:24 meloxicam 7.5 mg tablet 2022 023 [id number], [address] [place], [address], 3 17:21:48 Patient TargetsNo targets recorded. Patient Instructions Encounter Date Encounter Id Patient Instructions Last Modified By Organization Details Last Modified Time 04/07/2022 [id number] getting back to normal after low back pain: care instructions [email or web address] Not available 04/07/2022 14:17:21 low back pain: exercises [email or web address] Not available 04/07/2022 14:42:22 You have been diagnosed with a sacroiliac strain. Muscle relaxant will make you drowsy so please do not drive with that medication. The following are my recommendation to help you with your discomfort. 1. Stretch in the AM and PM - especially when you first wake up. 2. Heating pad to the lower back. 3. No heavy lift and no sports until you are feeling a little better. 4. OK to take Tylenol to help supplement with the pain unless you have an allergy. 5. Stop Smoking if you smoke this can increased lower back pain - this has been proven in studies. If any of the following symptoms develop - you should be seen in the ER. 1. Numbness in your groin 2. Bowel or Bladder incontinence 3. Worsening Pain 4. Blood in urine or stool 5. Fever or vomiting. Thank you for using [facility], please call if you have any questions or concerns. [email or web address] Not available 04/07/2022 14:41:33 Reason for Referral None Reported. Results Created Date Observation Date Name Description Value Unit Range Abnormal Flag Note LastModifiedBy Organization Detail LastModifiedTime 04/07/19 23 04/07/2022 XR, lumbo sacra l spine , 2 or 3 view No observ ation record ed. [facility] [address] [facility], [place], [address], 04/07/2022 20:24:02 04/07/19 23 imagi ng/di agnos tic resul t No observ ation record ed. [email or web address] Not Available 2022 17:32:57 Result Notes None recorded. Problems Name Problem SNOMED Code Status Onset Date Resolution Date Notes Provider Name and Address Organization Details Recorded Time Gastritis 2960594 Active 2022 JES Ashley [facility] 3 13:42:29 Gastroesophage al reflux disease 038206606 Active 2022 JES Ashley [facility] 3 13:42:33 Insomnia 820734981 Active 2022 Isabel Pascoag null, PA - [facility] 3 13:42:40 Problem Notes None recorded. Medical Equipment None Reported. Allergies Allergen ID Allergen Name Allergen Category Reaction Reaction Severity Criticality Documentation Date Start Date Code Code System Note Provider Name and Address Organization Details Recorded Time 692169 amoxicill in medicatio n diarrhea Not available low 04/07/2022 723 RxNorm Isabel Pascoag null, PA - [facility] 3 13:41:22 643991 erythromy lety medicatio n diarrhea Not available low 04/07/2022 4053 RxNorm Isabel Pascoag null, PA - [facility] 3 13:41:33 Medications Name Sig Start Date Stop Date Status Note LastModified by Organization Details LastModified Time cyclobenzapr ine 10 mg tablet TAKE 1 TABLET BY MOUTH EVERYDAY AT BEDTIME active Not Available Not Available No t Available Anti-Diarrhe al (loperamide) 2 mg tablet active Not Available Not Available Not Available sumatriptan 100 mg tablet PLEASE SEE ATTACHED FOR DETAILED DIRECTIONS active Not Available Not Available N ot Available sucralfate 100 mg/mL oral suspension active Not Available Not Available N ot Available ondansetron 8 mg disintegrati ng tablet active Not Available Not Available No t Available meloxicam 7.5 mg tablet TAKE 1 TABLET BY MOUTH EVERY DAY active Not Available Not Available No t Available amitriptylin e 25 mg tablet TAKE 1 1/2 TABLETS BY MOUTH DAILY AT BEDTIME FOR 90 DAYS active Not Available Not Available Not Available magnesium oxide 400 mg (241.3 mg magnesium) tablet TAKE 1 TABLET BY MOUTH AT BEDTIME- HOLD IF LOOSE STOOLS active Not Available Not Available No t Available ondansetron 4 mg disintegrati ng tablet active Not Available Not Available No t Available esomeprazole magnesium 20 mg capsule,peter yed release TAKE 2 CAPS (40MG) BY MOUTH ONCE DAILY. active Not Available Not Available No t Available omeprazole active Not Available Not Av ailable Not Available riboflavin (vitamin B2) 400 mg tablet TAKE 1 TABLET BY MOUTH DAILY active Not Available Not Available Not Available Vitals Date Recorded Body height Body mass index (BMI) Body weight Oxygen saturation Oxygen saturation in Arterial blood by Pulse oximetry Pain severity - 0-10 verbal numeric rating [Score] - Reported Heart rate Respiratory rate Body temperature Systolic And Diastolic Provider Name and Address Organization Details Last Updated DateTime 3 165.1 cm 28.6 kg/m2 62153.8 9 g 98 % 98 % 6 96 /min 20 /min 98.3 [degF] 137/88 mm[Hg] Isabel Zazueta PA - [facility] 3 13:46:33 Social History Question Answer Notes LastModified by [employer] Details LastModified Time Tobacco Smoking Status Never Smoker Isabel tipton PA - [facility] 04/07/2022 13:43:12 Have You Had Direct Contact, Or Contact During Intimacy, With Monkeypox Rash, Scabs, Or Body Fluids From A Person With Monkeypox? No Information not available 04/07/2022 Have You Recently Traveled Abroad? No Information not available 04/07/2022 Sex: Unknown Functional Status Question Answer Note LastModified by [employer] Details LastModified Time Do you use any illicit or recreational drugs? No Information not available 04/07/2022 Do you or have you ever used any other forms of tobacco or nicotine? No Information not available 04/07/2022 What is your level of alcohol consumption? None Information not available 04/07/2022 Mental Status None recorded. Family History Relationship Description Onset Age of this Age Resolved Age Notes LastModified by Organization Details LastModified Time Father Diabetes mellitus Not available 2022 13:42:50 Unspecified Relation Malignant neoplastic disease Everyb bea on dads side per patien t Not available 04/07/2022 13:43:04 Medical History No medical history recorded. Gynecological HistoryNo gynecological history recorded. Obstetrics History GPAL:G 0 P 0 0 0 0 Immunizations Vaccine Type Date Status Note Provider Nam e and Address Organization Details Recorded Time Influenza, split virus, quadrivalent, preservative 7 completed Isabel tipton PA - [facility] 04/07/2022 13:43:35 COVID-19, mRNA, LNP-S, PF, 100 mcg/0.5mL dose or 50 mcg/0.25mL dose 1 completed Isabel Marbin null, PA - [facility] 04/07/2022 13:43:35 COVID-19, mRNA, LNP-S, PF, 100 mcg/0.5mL dose or 50 mcg/0.25mL dose 1 completed Isabel Pascoag null, PA - [facility] 04/07/2022 13:43:35 Tdap 6 completed Isabel Marbin null, PA - [facility] 04/07/2022 13:43:35 Past Encounters Encounter ID Performer Location Encounter Start Date Encounter Closed Date Diagnosis/Indication Diagnosis SNOMED-CT Code Diagnosis ICD10 Code Diagnosis IMO Codes Diagnosis Note [id number] [address] [place] [address] 07/22/2020 17:05:26 07/22/2020 18:33:21 [id number] [address] [place] [address] 06/27/2019 12:05:59 06/27/2019 12:36:36 [id number] [address] [place] [address] 04/05/2020 16:46:16 04/05/2020 17:54:55 [id number] [address] [place] [address] 08/21/2019 08:02:32 08/21/2019 09:01:17 [id number] [address] [place] [address] 05/10/2019 18:08:36 05/10/2019 19:03:31 [id number] [address] [place] [address] 12/14/2018 17:18:22 12/14/2018 17:39:32 [id number] [address] [place] [address] 06/30/2020 11:09:54 06/30/2020 13:47:40 [id number] [address] [place] [address] 09/10/2020 17:44:52 09/10/2020 18:26:40 [id number] [address] [place] [address] 03/26/2020 18:57:27 03/26/2020 19:26:10 [id number] [address] [place] [address] 10/02/2020 08:04:09 10/02/2020 08:50:12 [id number] JES SIMMONS [address] [place] [address] 04/07/2022 12:51:06 04/07/2022 14:44:19 Accidental fall [id number] W19.XXXA Low back pain 995845416 M54.50 No evidence of fracture on your x-ray. 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 I am sending to radiologis t to confirm. If they see anything that I missed then I will call you with those results. Lumbar sprain 112418277 S33.5XXA Differenti al - contusion spine. Health Concerns Section Related Observation LastModified by Organization Detai ls LastModified Time None Recorded Concern Status LastModified by Organization Details LastModified Time None Recorded Advance Directives Directive None Recorded Payers Insurance Date Sequence Insurance Name Policy Number Policy Copeland Covered Member ID Copeland Member ID Guarantor Name 04/07/2022 1 [employer] [id number] Anabella C [place] [id number] Anabella [place] 04/07/2022 2 [facility] (O[facility]ERY Anabella [place] [id number] Anabella [place] Notes Date Note Type Note Provider Name and Address Organization Details Recorded Time 04/07/19 23 text/htm l Back Pain/Injury UCReported by PatientHPIFor quality, patient reportstightnessandmuscle spasms. For aggravating factors, patient reportsbending/squatting. For source of patient information, patient reportsinformation obtained from patient. For location, patient reportspain is not radiating,sacral, andlower back. For duration, patient reports1 days. For context, patient reportsfall. For previous injury, patient reportsno prior injury to affected body part. JES SIMMONS [address] [place], [address], PA - [facility] 04/07/2022 17:24:41 OBGyn Episode No OBEpisode recorded.
--- OUTSIDE RECORDS SUMMARY | 2024-12-22 15:22 | XMS_ITS | Encounter Summary ---
Author Organization [employer] Address [address] [facility] [address] [place] [id number] Care Team Providers Care Inshore Undersea Warfare Officer Name Role Phone Unavailable Primary Care Provider Unavailabl e Encounter Details Date Type Department Care Team (Latest Contact Info) Description 11/09/2018 Abstract C CONVERSIONS Dental, Provider, DDS Social History Tobacco Use Types Packs/Day Years Used Date Smoking Tobacco: Never Assessed Comments Unknown Sex and Gender Information Value Date Recorded Sex Assigned at Female 12/29/2021 10:35 AM EDT Legal Sex Female 10:35 AM EDT Gender Identity Female 12/29/2021 10:35 AM EDT Sexual Orientation Straight 12/29/2021 10 :35 AM EDT documented as of this encounter Plan of Treatment Not on file documented as of this encounter Visit Diagnoses Not on filedocumented in this encounter
--- OUTSIDE RECORDS SUMMARY | 2024-12-22 15:22 | XMS_ITS | Encounter Summary ---
Author Organization [employer] Address [address] [facility] [address] [place] [address] Care Team Providers Care Corset Maker Name Role Phone Unavailable Primary Care Provider Unavailabl e Reason for Visit * Reason Onset Date Comments rct part 2 04/03/2024 Encounter Details Date Type Department Care Team ([facility] st Contact Info) Description 04/03/2024 Telephone C [facility] [address], [place] [phone] KalinChidil, DDS [address] [place] [address] rct part 2 Social History Tobacco Use Types Packs/Day Years Used Date Smoking Tobacco: Never Passive Smoke Exposure: Never Smokeless Tobacco: Never Alcohol Use Standard Drinks/Week Comments Never 0 (1 standard drink = 0.6 oz pur e alcohol) Comments Unknown Sex and Gender Information Value Date Recorded Sex Assigned at Female 12/29/2021 10:35 AM EDT Legal Sex Female 10:35 AM EDT Gender Identity Female 12/29/2021 10:35 AM EDT Sexual Orientation Straight 12/29/2021 10 :35 AM EDT documented as of this encounter Miscellaneous Notes * Telephone Encounter - Lin Zee - 04/03/2024 12:01 PM EST Patient called in to verify scheduling for 2nd part of rct. I spoke with [facility] and she is on the list of patient that do need a call to be scheduled. Patient has been assured that she has not been forgotten. She states she is concerned as she states that provider mentioned that she has about amonth to be able to complete the work for it to be successful. Informed patient I would relay the information to [facility] and verify if this could impact the appt scheduling. No guarantees of appt scheduling made to patient DR documented in this encounter Plan of Treatment Not on file documented as of this encounter Visit Diagnoses Not on filedocumented in this encounter
[2024-12-22 15:23] LABS: IDNOW Serial# 55D5AD1C
[2024-12-22 15:24] LABS: COVID-19 Test Negative (Negative)
== END 2024-12-22 16:11 | disposition home or self-care (01) ==
PROVIDERS: Nurse Practitioner Family; Physician Assistant; Emergency Provider Emergency Medicine; PCP Internal Medicine
DX: R07.9 Chest pain, unspecified (principal); R42 Dizziness and giddiness; R51.9 Headache, unspecified; Z03.818 Encounter for observation for suspected exposure to other biological agents ruled out; K21.9 Gastro-esophageal reflux disease without esophagitis; Z87.891 Personal history of nicotine dependence; Z79.899 Other long term (current) drug therapy
CPT/HCPCS: 36415; 70450; 71045; 80048; 80076; 81001; 81003; 81025; 83735; 84484; 85025; 87502; 87635; 93005; 99283; 99284

== ENCOUNTER → 2024-12-22 11:11 | Outpatient (BNV) | payer OTHER, SELFPAY | PROVIDERS: Visit Provider Internal Medicine Cardiovascular Disease | DX: R07.9 Chest pain, unspecified (principal) | CPT/HCPCS: 93010 ==

== ENCOUNTER → 2024-12-22 13:36 | Outpatient (BNV) | payer SELFPAY | PROVIDERS: Emergency Provider Emergency Medicine; PCP Internal Medicine; Visit Provider Radiology Diagnostic Radiology | DX: R42 Dizziness and giddiness (principal); R26.81 Unsteadiness on feet; R07.9 Chest pain, unspecified | CPT/HCPCS: 70450; 71045 ==